=== PATIENT | female | born 1965 | race Caucasian/White ===

== ENCOUNTER → 2019-02-10 08:17 | Outpatient (CLI) | payer BC, SELFPAY ==
[2019-02-10 08:38] LABS: Basophils # 0.1 K/mm3 (0-0.2); Basophils % 1.1 % (0.1-2.0); Eosinophils # 0.1 K/mm3 (0.0-0.4); Eosinophils % 1.6 % (0.1-12.0); Hematocrit 39.8 % (37.0-47.0); Hemoglobin 13.6 g/dL (12.2-16.2); Lymphocytes # 2.3 K/mm3 (0.7-4.5); Mean Corpuscular HGB Conc 34.2 g/dL (31.8-35.4); Mean Corpuscular Hemoglobin 29.9 pg (27.0-31.2); Mean Corpuscular Volume 87.6 fl (81-99); Mean Platelet Volume 8.2 fl (7.4-10.4); Monocytes # 0.3 K/mm3 (0.1-1.0); Monocytes % 6.1 % (1.7-9.3); Neutrophils # 2.6 K/mm3 (1.8-7.8); Neutrophils % 48.3 % (37.0-80.0); Platelet Count 185 K/mm3 (142-424); Red Blood Count 4.55 M/mm3 (4.20-5.40); White Blood Count 5.3 K/mm3 (4.8-10.8)
[2019-02-10 09:38] LABS: Alanine Aminotransferase 44 U/L (12-78); Albumin Level 3.7 gm/dL (3.4-5.0); Albumin/Globulin Ratio 1.3 (1.1-1.8); Alkaline Phosphatase 60 U/L (46-116); Amylase 46 U/L (25-115); Anion Gap 11.4 mEq/L (5-15); Aspartate Amino Transferase 20 U/L (15-37); Bilirubin,Total 0.5 mg/dL (0.2-1.0); Blood Urea Nitrogen 16 mg/dL (7-18); Calcium 8.5 mg/dL (8.5-10.1); Carbon Dioxide 30 mmol/L (21.0-32.0); Chloride 107 mmol/L (98-107); Chol/HDL Ratio 3.1 (1-3.5); Cholesterol 216 mg/dL (140-200); Creatinine,Serum 0.78 mg/dL (0.55-1.02); Estimated Glomerular Filt Rate 77 ml/min (>60); GFR (African American) 93 ML/MIN (>60); Globulin 2.9 gm/dl (1.3-3.2); Glucose 109 mg/dL (74-106); HDL Cholesterol 70 mg/dL (29-89); LDL Cholesterol 135 mg/dL (0-130); Lipase 266 u/L (73-393); Potassium 4.4 mmoL/L (3.5-5.1); Sodium 144 mmol/L (136-145); Total Protein,Serum 6.6 gm/dL (6.4-8.2); Triglycerides 56 mg/dL (30-200); VLDL Cholesterol 11 mg/dL (0-40)
== END ==
PROVIDERS: Visit Provider Family Medicine
DX: R14.0 Abdominal distension (gaseous) (principal); K21.9 Gastro-esophageal reflux disease without esophagitis; K59.01 Slow transit constipation
CPT/HCPCS: 36415; 80053; 80061; 82150; 83690; 84443; 85025

== ENCOUNTER → 2019-10-03 08:18 | Outpatient (CLI) | payer OTHER, SELFPAY ==
[2019-10-03 08:24] LABS: Adenovirus F 40/41, stool Not Detected (NotDetected); Astrovirus Not Detected (NotDetected); Campylobacter Not Detected (NotDetected); Cryptosporidium Not Detected (NotDetected); Cyclospora Cayetanesis Not Detected (NotDetected); Entamoeba histolytica Not Detected (NotDetected); Enteroaggregative E coli Not Detected (NotDetected); Enteropathogenic E coli Not Detected (NotDetected); Enterotoxigenic E coli Not Detected (NotDetected); Giardia lamblia Not Detected (NotDetected); Norovirus Not Detected (NotDetected); Plesimonas Shigalloides, PCR Not Detected (NotDetected); Rotavirus A Not Detected (NotDetected); Salmonella, PCR Not Detected (NotDetected); Sapovirus Not Detected (NotDetected); Shiga-like toxin E coli Not Detected (NotDetected); Shigella Enterovasive E coli Not Detected (NotDetected); Vibrio Cholerae Not Detected (NotDetected); Vibrio, PCR Not Detected (NotDetected); Yersinia Entercolitica, PCR Not Detected (NotDetected)
[2019-10-03 11:47] LABS: Clostridium Difficile A/B, PCR Detected (NotDetected)
== END ==
PROVIDERS: Visit Provider Family Medicine
DX: R19.7 Diarrhea, unspecified (principal); A04.72 Enterocolitis due to Clostridium difficile, not specified as recurrent
CPT/HCPCS: 87507

== ENCOUNTER → 2019-10-09 17:18 | Outpatient (CLI) | payer OTHER, SELFPAY ==
--- NOTE | 2019-10-09 17:39 | XR_ITS ---
PROCEDURE: XR CHEST 2V CLINICAL HISTORY: COUGH, BRONCHITIS PER AUDRA THURSTON COMPARISON: CXR CHEST(2 VIEWS-NOT PORTABLE) from 01/26/2017 FINDINGS: The cardiomediastinal silhouette and pulmonary vascularity are within normal limits. The lungs are clear without infiltrates, suspicious nodules, or pleural effusions. No acute bony abnormalities. IMPRESSION: No acute findings. Dictated by: Alverto Briscoe MD 10/09/2019 18:38 Electronically signed by Alverto Briscoe MD in [place] 10/09/2019 18:38
== END ==
PROVIDERS: PCP Family Medicine; Visit Provider Nurse Practitioner Family
DX: J40 Bronchitis, not specified as acute or chronic (principal)
CPT/HCPCS: 71046

== ENCOUNTER → 2020-02-11 13:14 | Outpatient (CLI) | payer OTHER, SELFPAY ==
--- NOTE | 2020-02-11 13:29 | XR_ITS ---
PROCEDURE: XR KNEE LT 3V CLINICAL INDICATION: LT KNEE PAIN Left lateral knee COMPARISON: [id number] KNEE-3 VIEWS-RT from 02/24/2016 FINDINGS: No fracture or dislocation. No lytic or blastic change. There is normal mineralization. Osteoarthritic changes are present involving medial compartment. Other findings:None. IMPRESSION: Mild osteoarthritis of the left knee Dictated by: Alverto Briscoe MD 02/11/2020 13:48 Electronically signed by Alverto Briscoe MD in [place] 02/11/2020 13:48
== END ==
PROVIDERS: PCP Nurse Practitioner Family; Visit Provider Nurse Practitioner Family
DX: M25.562 Pain in left knee (principal)
CPT/HCPCS: 73562

== ENCOUNTER → 2020-02-19 08:23 | Outpatient (CLI) | payer OTHER, SELFPAY ==
--- NOTE | 2020-02-19 08:30 | MR_ITS ---
PROCEDURE: MR KNEE LT WO CON CLINICAL INDICATION: KNEE PAIN Lateral knee pain with pain radiating down the leg, instability COMPARISON: XR KNEE LT 3V from 02/11/2020 TECHNIQUE: Routine multiplanar multi echo sequences are performed without gadolinium enhancement. FINDINGS: The cruciate ligaments, collateral ligaments, patellar tendon, and quadriceps tendon appear intact. No obvious meniscal tear. The patellar cartilage is preserved. There are osteoarthritic changes of both medial and lateral compartment greater in the medial compartment. Subchondral cystic changes are present involving the for medial femoral condyle anteriorly and centrally with subchondral cyst measures approximately 5 mm with some mild surrounding edema. There is a small complex cystic area just superior to the posterior aspect of the medial femoral condyle measuring 12 mm. There is a small knee joint effusion. IMPRESSION: 1. No evidence of internal derangement 2. Osteoarthritic changes greater along the medial compartment with subchondral cyst of the medial femoral condyle with mild amount of edema 3. Small knee joint effusion with a complex cystic area just superior to the posterior aspect of the lateral femoral condyle Dictated by: Alverto Briscoe MD 02/20/2020 12:05 Electronically signed by Alverto Briscoe MD in [place] 02/20/2020 12:05
== END ==
LOC: RAD 08:23
PROVIDERS: PCP Nurse Practitioner Family; Visit Provider Nurse Practitioner Family
DX: M25.562 Pain in left knee (principal)
CPT/HCPCS: 73721

== ENCOUNTER → 2021-03-27 17:14 | Outpatient (CLI) | payer OTHER, SELFPAY | PROVIDERS: PCP Nurse Practitioner Family; Visit Provider Nurse Practitioner Family | DX: G47.33 Obstructive sleep apnea (adult) (pediatric) (principal); R06.83 Snoring | CPT/HCPCS: G0399 ==

== ENCOUNTER 2021-08-09 19:14 | Emergency (ER) | payer OTHER, SELFPAY ==
[2021-08-09 19:15] VITALS: BP 124/82; PULSE 83; RESP 20; TEMP 37.1; O2SAT 98; BMI 37.9
--- NOTE | 2021-08-09 19:29 | HMH.EDUTC ---
[facility] [place] Disposition Clinical Impression: Bronchitis Sinusitis Qualifiers: Sinusitis location: unspecified location Chronicity: unspecified Qualified Code(s): J32.9 - Chronic sinusitis, unspecified Disposition: Home, Self-Care Condition on Discharge: Good Instructions: Sinusitis, DI for Sinusitis Additional Instructions: ? Start antibiotic today. Be sure to complete entire prescription even if feeling better ? Monitor temp. Tylenol every 4 hours as needed and / or ibuprofen every 6 hours as needed ( As long as your primary care physician has told you that it ok to take both. For fever/aches/pains ER if no less than 101 despite Tylenol or Motrin ? Humidifier/vaporizer or hot steamy shower ? Inhaler every 4-6 hours as needed like we discussed. If unsure how to use it, ask pharmacist to demonstrate how. Should help open airways and improve cough, wheezing, and shortness of breath *Promethazine DM cough syrup will cause drowsiness. Use only at night. No driving, operating machinery or caring for small children after taking it Follow up IMMEDIATELY for new or worsening of symptoms OR no noticeable improvement over the next 48-72 hours. 911 immediately for any life threatening symptoms such as chest pain or difficulty breathing Prescriptions: Promethazine/Dextromethorphan [Promethazine-Dm Syrup] 2.5 - 5 ml PO Q6H PRN #120 ml PRN Reason: Cough Transmission Status: Pending to [facility] Azithromycin [Z-Demarco 250mg Tab] 250 mg PO DIRECTED #6 tab Transmission Status: Pending to [facility] Referrals: Toni Knight MD [Primary Care Provider] - As needed Forms: Work/School Release Time of Disposition: 19:46 Medical Decision Making - Vinicio Inquiry Pt receiving controlled substance: No Vinicio was queried for this patient: No Vital Signs: 08/09/21 19:15 Temperature 98.7 F Temperature Source Oral Pulse Rate [Left Brachial] 83 Respiratory Rate 20 Blood Pressure [Left Arm] 124/82 Blood Pressure Mean [Left Arm] 96 Blood Pressure Source [Left Arm] Automatic Cuff Blood Pressure Position [Left Arm] Sitting 02 Sat by Pulse Oximetry 98 Oxygen Delivery Method Room Air Medical Decision Narrative: Patient states that she has taken azithromycin in the past without reactions or complications [facility] [place] HPI - General Stated complaint: sore throat, cough QUIROZ Time Seen by Provider: 08/09/21 19:29 Mode of Arrival: Ambulatory Source of Information: Patient Limitations: No Limitations Description of Symptoms (Recalled from Triage Doc. by RN): PATIENT C/O COUGH, SINUS DRAINAGE, SORE THROAT, HEADACHE, FATIGUE, AND ACHING TO UPPER BACK HEENT Symptoms (Recalled from RN notes): Yes Resp Symptoms (Recalled from RN notes): Yes Skin Symptoms (Recalled from RN notes): No MS Symptoms (Recalled from RN notes): No Functional Status (Recalled from RN notes): WNL - History of Present Illness Provider Complaint: Patient states that she has been having sinus congestion and cough for several days that has continued to get worse States that she feels like she is having sinus drainage in the back of her throat and feels like she is getting bronchitis States that she has coughed so much it has her upper back sore from coughing so much - Related Data Home Medications Medication Instructions Recorded Confirmed omeprazole 40 mg capsule,delayed 40 mg PO DAILY cap 04/08/21 07/08/21 release Previous Rx's Medication Instructions Recorded Azithromycin [Z-Demarco 250mg Tab] 250 mg PO DIRECTED #6 tab 08/09/21 Promethazine/Dextromethorphan 2.5 - 5 ml PO Q6H PRN #120 ml 08/09/21 [Promethazine-Dm Syrup] Allergies Allergy/AdvReac Type Severity Reaction Status Date / Time cephalexin [From KEFLEX] Allergy Mild Verified 07/08/21 08:07 sulfamethoxazole Allergy Mild Verified 07/08/21 08:07 [From BACTRIM] trimethoprim [From BACTRIM] Allergy Mild Verified 07/08/21 08:07 erythromycin base Allergy Verified 11
[2021-08-09 19:49] VITALS: BP 124/82; PULSE 83; RESP 20; TEMP 37.1; O2SAT 98
== END 2021-08-09 19:52 | disposition home or self-care (01) ==
PROVIDERS: Emergency Provider Nurse Practitioner; PCP Family Medicine
DX: J20.9 Acute bronchitis, unspecified (principal); J32.9 Chronic sinusitis, unspecified; K21.9 Gastro-esophageal reflux disease without esophagitis; E78.5 Hyperlipidemia, unspecified; Z87.891 Personal history of nicotine dependence; Z88.2 Allergy status to sulfonamides
CPT/HCPCS: 99202; G0463

== ENCOUNTER → 2021-08-10 17:17 | Outpatient (CLI) | payer OTHER, SELFPAY ==
--- NOTE | 2021-08-12 12:42 | PC.NURSE ---
notified pt of positive covid result at this time
== END ==
PROVIDERS: PCP Family Medicine; Visit Provider Nurse Practitioner
DX: U07.1 COVID-19 (principal)
CPT/HCPCS: C9803; U0003; U0005

== ENCOUNTER 2021-08-15 07:56 | Outpatient (CLI) | payer OTHER, SELFPAY ==
[2021-08-15] VITALS (7 sets, daily range): BP systolic 112–123; BP diastolic 65–74; PULSE 87–100; RESP 16–18; TEMP 37.6–38.2; O2SAT 91–98; BMI 34.7
--- NOTE | 2021-08-15 10:00 | PC.NURSE ---
PT is asking for some fluids due to her not drinking or eating alot. Pt had a temp of 100.1 before transfusing started. MD aware and ok to give 1 L of NS and 1000 of Tylenol
== END 2021-08-15 10:25 | disposition home or self-care (01) ==
PROVIDERS: PCP Family Medicine; Visit Provider Family Medicine
DX: U07.1 COVID-19 (principal); Z23 Encounter for immunization
CPT/HCPCS: 96365

== ENCOUNTER → 2022-01-19 14:12 | Outpatient (CLI) | payer BC, SELFPAY ==
--- NOTE | 2022-01-19 14:18 | XR_ITS ---
FINAL REPORT CLINICAL HISTORY: rt thumb pain, developed right thumb pain after lifting heavy object. States she has trigger finger now. FINDINGS: 3 views of the right hand were obtained. There is no acute fracture or dislocation. There is mild degenerative change at the radial aspect of the wrist. There is no soft tissue abnormality. IMPRESSION: Mild degenerative change. Reviewed, Interpreted and Dictated by Fredy Franco III, MD Transcribed by Kevin Coelho Authenticated by Fredy Franco III, MD on 01/19/2022 03:56:19 PM [facility]
== END ==
LOC: RAD 14:15
PROVIDERS: PCP Family Medicine; Visit Provider Orthopaedic Surgery
DX: M79.644 Pain in right finger(s) (principal); G89.29 Other chronic pain; M65.311 Trigger thumb, right thumb
CPT/HCPCS: 73130

== ENCOUNTER 2022-04-04 14:21 | Emergency (ER) | payer BC, SELFPAY ==
[2022-04-04 14:40] VITALS: BP 157/90; PULSE 86; RESP 19; TEMP 37.2; O2SAT 98; BMI 38.2
--- NOTE | 2022-04-04 14:55 | HMH.EDUTC ---
[facility] [place] Disposition Clinical Impression: Otitis media Qualifiers: Otitis media type: unspecified Laterality: left Qualified Code(s): H66.92 - Otitis media, unspecified, left ear Disposition: Home, Self-Care Condition on Discharge: Good Instructions: Middle Ear Infection, DI for COVID-19 (Suspected or Confirmed ), Preventing the Spread of Coronavirus Discharge Instructions Additional Instructions: *Monitor Temp, Over the counter Motrin or Tylenol as directed/as needed Tylenol every 4 hours and Motrin every 6 hours (as long as your family doctor has told you that you can take it) for fever or pain. and straight to ER if unable to lower temp less than 101.0 after medication given *Warm salt water gargles may help to soothe the throat *Throat Lozenges *Warm fluids like tea with honey may help to soothe the throat *Sleep elevated *Humidifier/Vaporizer Follow up IMMEDIATELY for new or worsening symptoms or no Noticeable improvement over the next 48-72 hours. 911 for difficulty breathing or swallowing You were tested for today for COVID19 your test result should be back in the next 24-48 hours, you may check your results on the [facility] My Health Portal Make sure to take your Vitamins Vit. C Vit D and Zinc if you can take them Prescriptions: Azithromycin [Z-Demarco 250mg Tab] 250 mg PO DIRECTED #6 tab Transmission Status: Pending to [facility] Ondansetron [Zofran 4mg ODT] 4 mg PO TIDP PRN #9 tab PRN Reason: Nausea Transmission Status: Pending to [facility] Referrals: Toni Knight MD [Primary Care Provider] - As needed Forms: Work/School Release Time of Disposition: 14:55 Medical Decision Making - Vinicio Inquiry Pt receiving controlled substance: No Vinicio was queried for this patient: No Vital Signs: 04/04/22 14:40 Temperature 99.0 F Temperature Source Oral Pulse Rate [Right Brachial] 86 Respiratory Rate 19 Blood Pressure [Right Arm] 157/90 H Blood Pressure Mean [Right Arm] 112 Blood Pressure Source [Right Arm] Automatic Cuff Blood Pressure Position [Right Arm] Sitting 02 Sat by Pulse Oximetry 98 Oxygen Delivery Method Room Air Orders (Tests/Meds): ORDERS Category Date Time Status Covid-19 Nasal PCR ([facility]) Routine Lab 04/04/22 14:36 Received [facility] [place] HPI - General Stated complaint: covid test Time Seen by Provider: 04/04/22 14:55 Mode of Arrival: Ambulatory Source of Information: Patient Limitations: No Limitations Description of Symptoms (Recalled from Triage Doc. by RN): COVID TEST D/T EXPOSURE. C/O HEADACHE, NAUSEA, AND DIARRHEA HEENT Symptoms (Recalled from RN notes): Yes Resp Symptoms (Recalled from RN notes): No Skin Symptoms (Recalled from RN notes): No MS Symptoms (Recalled from RN notes): No Functional Status (Recalled from RN notes): WNL - History of Present Illness Provider Complaint: Patient states that her boyfriend tested positive for COVID earlier today States that she has been having bilateral ear pain, scratchy throat, headache and nausea and fatigue States that she wanted to come in and get tested for COVID - Related Data Home Medications Medication Instructions Recorded Confirmed omeprazole 40 mg capsule,delayed 40 mg PO DAILY cap 04/08/21 01/19/22 release Previous Rx's Medication Instructions Recorded Azithromycin [Z-Demarco 250mg Tab] 250 mg PO DIRECTED #6 tab 04/04/22 Ondansetron [Zofran 4mg ODT] 4 mg PO TIDP PRN #9 tab 04/04/22 Allergies Allergy/AdvReac Type Severity Reaction Status Date / Time cephalexin [From KEFLEX] Allergy Mild Verified 01/19/22 16:47 sulfamethoxazole Allergy Mild Verified 01/19/22 16:47 [From BACTRIM] trimethoprim [From BACTRIM] Allergy Mild Verified 01/19/22 16:47 Sulfa (Sulfonamide Allergy Verified 01/19/22 16:47 Antibiotics) - Worker's Comp Is this a Worker's Comp case?: No [facility] History - Hepatitis A Screen Attestation statement:: This patient has been scre
[2022-04-04 14:56] VITALS: BP 157/90; PULSE 86; RESP 19; TEMP 37.2; O2SAT 98
== END 2022-04-04 15:00 | disposition home or self-care (01) ==
PROVIDERS: Emergency Provider Nurse Practitioner; PCP Family Medicine
DX: H66.92 Otitis media, unspecified, left ear (principal); Z20.822 Contact with and (suspected) exposure to COVID-19
CPT/HCPCS: 99212; C9803; G0463; U0003; U0005

== ENCOUNTER → 2022-04-09 08:12 | Outpatient (CLI) | payer BC, SELFPAY | PROVIDERS: PCP Family Medicine; Visit Provider Family Medicine | DX: U07.1 COVID-19 (principal) | CPT/HCPCS: C9803; U0003; U0005 ==

== ENCOUNTER 2022-08-21 08:27 | Emergency (ER) | payer BC, SELFPAY ==
[2022-08-21 08:40] VITALS: BP 152/88; PULSE 79; RESP 22; TEMP 37.1; O2SAT 97; BMI 37.1
[2022-08-21 08:59] LABS: UTC Strep Screen (Rapid) Negative (Negative)
--- NOTE | 2022-08-21 08:59 | EXP.UTC ---
Discharge Plan Disposition Patient Disposition: Home, Self-Care Condition: Good Prescriptions Prescriptions: New azithromycin [azithromycin] 250 mg tablet 250 mg PO DIRECTED Qty: 6 0RF Rx Instructions: Take two (2) tablets on day #1, then one (1) tablet day #2 thru #5 No Action omeprazole 40 mg capsule,delayed release(DR/EC) 40 mg PO DAILY Referrals Follow up/Referrals: Toni Knight MD [Primary Care Provider] - See instructions Clinical Impressions Clinical Impression: Sinusitis Instructions Patient Instructions: DI for Sinusitis Discharge ED Provider: Sophie ([facility])Dong [facility] [place] HPI General Stated complaint: sore throat, cough, body aches, diarrhea, weak Mode of Arrival: Ambulatory Source of Information: Patient Limitations: No Limitations Time Seen by Provider: 08/21/22 08:59 Description of Symptoms (Recalled from Triage Doc. by RN): PATIENT C/O CHILLS, FEVER, SORE THROAT, COUGH, INTERMITTEN DIARRHEA, BODY ACHES, HEADACHE, AND CONGESTION HEENT Symptoms (Recalled from RN notes): Yes Resp Symptoms (Recalled from RN notes): Yes Skin Symptoms (Recalled from RN notes): No MS Symptoms (Recalled from RN notes): No Functional Status (Recalled from RN notes): WNL History of Present Illness Provider Complaint: 57 yr old female presents for fever, cough, body aches and diarrhea last week and on started having thick yellow drainage and coughing up thick sputum. pt states she had been treating otc but symptoms are not improving Related Data Home Medications Medication Instructions Recorded Confirmed omeprazole 40 mg capsule,delayed 40 mg PO DAILY GERD 04/08/21 08/21/22 release Previous Rx's Medication Instructions Recorded azithromycin 250 mg tablet 250 mg PO DIRECTED #6 tabs 08/21/22 Allergies Allergy/AdvReac Type Severity Reaction Status Date / Time cephalexin [From KEFLEX] Allergy Mild Verified 01/19/22 16:47 sulfamethoxazole Allergy Mild Verified 01/19/22 16:47 [From BACTRIM] trimethoprim [From BACTRIM] Allergy Mild Verified 01/19/22 16:47 Sulfa (Sulfonamide Allergy Verified 01/19/22 16:47 Antibiotics) Worker's Comp Is this a Worker's Comp case?: No [facility] Disclaimer: The information contained in this section may have been updated after the patient was seen, as this information can be updated by other users. Social History , LINUS) Smoking Status: Former smoker alcohol intake: current substance use type: denies use current occupational status: employed and other Travel in the last 8 weeks: None household members: significant other housing: house ROS Obtained: Yes All systems reviewed & no additional complaints except as documented Constitutional Constitutional: Reports system reviewed and no additional complaints, except as documented, Reports body ache, Reports chills, Reports fever(s) and Reports headache(s) Eyes Eyes: Reports system reviewed and no additional complaints, except as documented ENT Ears, Nose, Mouth, and Throat: Reports system reviewed and no additional complaints, except as documented, Reports headache(s), Reports nasal congestion, Reports nasal discharge, Reports post nasal drip, Reports sinus pain, Reports sinus pressure and Reports sore throat Cardiovascular Cardiovascular: Reports system reviewed and no additional complaints, except as documented Respiratory Respiratory: Reports system reviewed and no additional complaints, except as documented, Reports change in phlegm color and Reports cough Gastrointestinal Gastrointestingal: Reports system reviewed and no additional complaints, except as documented and diarrhea Musculoskeletal Musculoskeletal: Reports system reviewed and no additional complaints, except as documented Integumentary/Breasts Skin/Breast: Reports system reviewed and no additional complaints, except as documented Neurologic N
[2022-08-21 09:05] VITALS: BP 152/88; PULSE 79; RESP 22; TEMP 37.1; O2SAT 97
== END 2022-08-21 09:07 | disposition home or self-care (01) ==
PROVIDERS: Emergency Provider Nurse Practitioner Family; PCP Family Medicine
DX: J32.9 Chronic sinusitis, unspecified (principal)
CPT/HCPCS: 87880; 99212; G0463

== ENCOUNTER → 2022-12-12 07:21 | Outpatient (CLI) | payer BC, SELFPAY ==
[2022-12-12 09:26] LABS: Basophils # 0.1 K/mm3 (0-0.2); Basophils % 1.6 % (0.1-2.0); Eosinophils # 0.1 K/mm3 (0.0-0.4); Eosinophils % 1.9 % (0.1-12.0); Hematocrit 47.5 % (37.0-47.0); Hemoglobin 14.7 g/dL (12.2-16.2); Lymphocytes # 1.8 K/mm3 (0.7-4.5); Lymphocytes % 28.9 % (10-50); Mean Corpuscular HGB Conc 30.9 g/dL (31.8-35.4); Mean Corpuscular Hemoglobin 29.6 pg (27.0-31.2); Mean Corpuscular Volume 95.8 fl (81-99); Mean Platelet Volume 8.9 fl (7.4-10.4); Monocytes # 0.6 K/mm3 (0.1-1.0); Monocytes % 8.8 % (1.7-9.3); Neutrophils # 3.7 K/mm3 (1.8-7.8); Neutrophils % 58.7 % (37.0-80.0); Platelet Count 221 K/mm3 (142-424); Red Blood Count 4.96 M/mm3 (4.20-5.40); Red Cell Distribution Width 14.3 % (11.5-17.5); White Blood Count 6.4 K/mm3 (4.8-10.8)
[2022-12-12 09:43] LABS: Chloride 106 mmol/L (98-107)
[2022-12-12 09:44] LABS: Sodium 141 mmol/L (136-145)
[2022-12-12 09:46] LABS: Alanine Aminotransferase 18 U/L (12-78); Albumin Level 4.3 g/dl (3.5-5.0); Albumin/Globulin Ratio 1.7 (1.1-1.8); Alkaline Phosphatase 73 U/L (38-126); Aspartate Amino Transferase 22 U/L (14-36); Bilirubin,Total 0.9 mg/dl (0.2-1.3); Blood Urea Nitrogen 12 mg/dl (7-17); Carbon Dioxide 30 mmol/L (22.0-30.0); Estimated Glomerular Filt Rate 86 ml/min (>60); GFR (African American) 104 ML/MIN (>60); Globulin 2.5 g/dL (1.3-3.2); Total Protein,Serum 6.8 g/dl (6.3-8.2)
[2022-12-12 09:47] LABS: Calcium 8.7 mg/dl (8.4-10.2); Chol/HDL Ratio 2.8 (1-3.5); Cholesterol 227 mg/dl (140-200); Glucose 104 mg/dl (74-100); HDL Cholesterol 81 mg/dl (40-60); Triglycerides 89 mg/dl (30-150); VLDL Cholesterol 18 mg/dL (0-40)
[2022-12-12 09:58] LABS: Direct LDL Cholesterol 115.02 mg/dL (100-129)
== END ==
PROVIDERS: PCP Family Medicine; Visit Provider Family Medicine
DX: K21.9 Gastro-esophageal reflux disease without esophagitis (principal); E78.5 Hyperlipidemia, unspecified
CPT/HCPCS: 36415; 80053; 80061; 85025

== ENCOUNTER 2023-02-06 10:45 | Emergency (ER) | payer BC, SELFPAY ==
[2023-02-06 11:00] VITALS: BP 149/86; PULSE 85; RESP 19; TEMP 36.9; O2SAT 100; BMI 36.8
--- NOTE | 2023-02-06 11:20 | EXP.UTC ---
Discharge Plan Disposition Patient Disposition: Home, Self-Care Condition: Good Prescriptions Prescriptions: New promethazine-DM 6.25-15 mg/5 mL syrup 5 ml PO Q6H PRN (Reason: cough) Qty: 118 0RF azithromycin [Zithromax Z-Demarco] 250 mg tablet See Rx Instructions .ROUTE .COMPLEX 5 Days Qty: 6 0RF Rx Instructions: For 250 mg dose pack: take 500 mg today (day 1), then 250 mg for 4 days (days 2-5) No Action omeprazole 40 mg capsule,delayed release(DR/EC) 40 mg PO DAILY Referrals Follow up/Referrals: Toni Knight MD [Primary Care Provider] - See instructions Activity Restrictions/Add. Instructions Additional Instructions/Restrictions: Start antibiotic today. Be sure to complete entire prescription even if feeling better Monitor temp. Tylenol every 4 hours as needed and / or ibuprofen every 6 hours as needed ( As long as your primary care physician has told you that it ok to take both. For fever/aches/pains ER if no less than 101 despite Tylenol or Motrin Humidifier/vaporizer or hot steamy shower Over the counter Mucinex during the day for your cough and cough suppressant only at night. Be sure to drink lots of water. *Promethazine DM cough syrup will cause drowsiness. Use only at night. No driving, operating machinery or caring for small children after taking it Follow up IMMEDIATELY for new or worsening of symptoms OR no noticeable improvement over the next 48-72 hours. 911 immediately for any life threatening symptoms such as chest pain or difficulty breathing Clinical Impressions Clinical Impression: Bronchitis Sinusitis Qualifiers: Sinusitis location: unspecified location Chronicity: unspecified Qualified Code(s): J32.9 - Chronic sinusitis, unspecified Instructions Patient Instructions: Acute Bronchitis, DI for Sinusitis Discharge ED Provider: Julianna Clark [facility] General Stated complaint: Headache sore throat ear pain cough drainage Mode of Arrival: Ambulatory Source of Information: Patient Limitations: No Limitations Time Seen by Provider: 02/06/23 11:20 Description of Symptoms (Recalled from Triage Doc. by RN): PATIENT C/O HEADACHE, SORE THROAT, COUGH WITH THICK, YELLOW MUCOUS, SINUS DRAINAGE, WEAKNESS AND EAR PAIN X 1 WEEK HEENT Symptoms (Recalled from RN notes): Yes Resp Symptoms (Recalled from RN notes): Yes Skin Symptoms (Recalled from RN notes): No MS Symptoms (Recalled from RN notes): No Functional Status (Recalled from RN notes): WNL History of Present Illness Provider Complaint: Patient states that she hasnt felt well for about a week States that she has been having bilateral ear pain, sinus congestion and pressure, cough with drainage in the back of her throat and at times she will cough up thick yellowish colored mucous States that today she was still having cough and congestion so she came in to get checked Related Data Home Medications Medication Instructions Recorded Confirmed omeprazole 40 mg capsule,delayed 40 mg PO DAILY GERD 04/08/21 02/06/23 release Previous Rx's Medication Instructions Recorded azithromycin 250 mg tablet See Rx Instructions PO .COMPLEX 5 02/06/23 (Zithromax Z-Demarco) days #6 tabs promethazine-DM 6.25 mg-15 mg/5 mL 5 ml PO Q6H PRN cough #118 mL 02/06/23 oral syrup Allergies Allergy/AdvReac Type Severity Reaction Status Date / Time cephalexin [From KEFLEX] Allergy Mild Verified 01/19/22 16:47 sulfamethoxazole Allergy Mild Verified 01/19/22 16:47 [From BACTRIM] trimethoprim [From BACTRIM] Allergy Mild Verified 01/19/22 16:47 Sulfa (Sulfonamide Allergy Verified 01/19/22 16:47 Antibiotics) Worker's Comp Is this a Worker's Comp case?: No [facility] Disclaimer: The information contained in this section may have been updated after the patient was seen, as this information can be updated by other users. 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 (Updated 02/06/23 @ 11:39 by Robyn He
[2023-02-06 11:48] VITALS: BP 149/86; PULSE 85; RESP 19; TEMP 36.9; O2SAT 100
== END 2023-02-06 12:06 | disposition home or self-care (01) ==
PROVIDERS: Emergency Provider Nurse Practitioner; PCP Family Medicine
DX: J20.9 Acute bronchitis, unspecified; J01.90 Acute sinusitis, unspecified; E78.5 Hyperlipidemia, unspecified; Z87.891 Personal history of nicotine dependence
CPT/HCPCS: 96372; 99212; 99214; G0463

== ENCOUNTER → 2023-05-10 09:02 | Outpatient (CLI) | payer BC, SELFPAY ==
--- NOTE | 2023-05-10 09:10 | ECG_ITS ---
APPROVED REPORT Exam: Resting ECG HR:65 bpm ECG Measurements Heart Rate 65 AXES NJ 172 P 26 QRSd 102 QRS -6 QT 429 T 13 QTc 440 Conclusion SINUS RHYTHM WITH OCCASIONAL VENTRICULAR PREMATURE COMPLEXES LOW QRS VOLTAGE IN PRECORDIAL LEADS [QRS DEFLECTION < 1.0 mV IN CHEST LEADS] MINIMAL VOLTAGE CRITERIA FOR LVH, CONSIDER NORMAL VARIANT [MEETS CRITERIA IN ONE OF: R(aVL), S(V1), R(V5), R(V5/V6)+S(V1)] BORDERLINE ECG UNCONFIRMED REPORT Electronically signed by : Toño Wallace MD 05/10/2023 17:15:16
== END ==
LOC: LAB 09:03
PROVIDERS: PCP Family Medicine; Visit Provider Nurse Practitioner Family
DX: I10 Essential (primary) hypertension (principal)
CPT/HCPCS: 93005

== ENCOUNTER 2023-08-13 08:56 | Emergency (ER) | payer BC, SELFPAY ==
[2023-08-13 09:15] VITALS: PULSE 81; RESP 20; TEMP 37.4; O2SAT 96; BMI 37.7
[2023-08-13 09:31] LABS: UTC Strep Screen (Rapid) Negative (Negative)
--- NOTE | 2023-08-13 09:53 | EXP.UTC ---
Discharge Plan Disposition Patient Disposition: Home, Self-Care Condition: Good Prescriptions Prescriptions: New azithromycin [azithromycin] 250 mg tablet 250 mg PO DIRECTED Qty: 6 0RF Rx Instructions: Take two (2) tablets on day #1, then one (1) tablet day #2 thru #5 No Action omeprazole 40 mg capsule,delayed release(DR/EC) 40 mg PO DAILY hydrochlorothiazide 12.5 mg capsule 12.5 mg PO DAILY Referrals Follow up/Referrals: Toni Knight MD [Primary Care Provider] - See instructions Activity Restrictions/Add. Instructions Additional Instructions/Restrictions: Start antibiotic patient to take as ordered for a full length of time even if you feel better. Sinus infections do not get better overnight. It may take 2-3 days to notice much improvement so be sure to use conservative measures as discussed for symptoms. Flonase 1 spray each nostril daily to help with nasal congestion, sinus and ear pressure/information Increase fluids Humidifier/vaporizer as needed Tylenol and ibuprofen as needed for fever or pain. If symptoms do not improve or get worse return or be seen in the ER Follow-up with primary care this week Clinical Impressions Clinical Impression: Sinusitis Qualifiers: Sinusitis location: maxillary Chronicity: acute Recurrence: non-recurrent Qualified Code(s): J01.00 - Acute maxillary sinusitis, unspecified Instructions Patient Instructions: DI for Sinusitis Discharge ED Provider: Dong Barrios [facility] General Stated complaint: sore throat Mode of Arrival: Ambulatory Source of Information: Patient Limitations: No Limitations Time Seen by Provider: 08/13/23 09:55 Description of Symptoms (Recalled from Triage Doc. by RN): sinus pressure, QUIROZ, sore throat, fever, yellow thick mucus, nasal drainage, and weak. HEENT Symptoms (Recalled from RN notes): Yes Resp Symptoms (Recalled from RN notes): No Skin Symptoms (Recalled from RN notes): No MS Symptoms (Recalled from RN notes): No Functional Status (Recalled from RN notes): n/a History of Present Illness Provider Complaint: 58 yr old female presents for sinus pressure, QUIROZ, sore throat, fever, thick yellow mucus, nasal drainage, and weak. Related Data Home Medications Medication Instructions Recorded Confirmed omeprazole 40 mg capsule,delayed 40 mg PO DAILY GERD 04/08/21 08/13/23 release hydrochlorothiazide 12.5 mg capsule 12.5 mg PO DAILY 06/21/23 08/13/23 Previous Rx's Medication Instructions Recorded azithromycin 250 mg tablet 250 mg PO DIRECTED #6 tabs 08/13/23 Allergies Allergy/AdvReac Type Severity Reaction Status Date / Time cephalexin [From KEFLEX] Allergy Mild Verified 08/13/23 09:34 sulfamethoxazole Allergy Mild Verified 08/13/23 09:34 [From BACTRIM] trimethoprim [From BACTRIM] Allergy Mild Verified 08/13/23 09:34 Sulfa (Sulfonamide Allergy Verified 08/13/23 09:34 Antibiotics) Worker's Comp Is this a Worker's Comp case?: No [facility] Disclaimer: The information contained in this section may have been updated after the patient was seen, as this information can be updated by other users. 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
[2023-08-13 10:25] VITALS: BP 0/0; PULSE 81; RESP 18; TEMP 37.4; O2SAT 96
== END 2023-08-13 10:25 | disposition home or self-care (01) ==
PROVIDERS: Emergency Provider Nurse Practitioner Family; PCP Family Medicine
DX: J01.00 Acute maxillary sinusitis, unspecified; R51.9 Headache, unspecified; R07.0 Pain in throat; R09.81 Nasal congestion; R50.9 Fever, unspecified; R53.1 Weakness; E78.5 Hyperlipidemia, unspecified; Z87.891 Personal history of nicotine dependence
CPT/HCPCS: 87880; 99212; 99214; G0463

== ENCOUNTER 2023-11-02 08:00 | Emergency (ER) | payer BC, SELFPAY ==
[2023-11-02 08:31] VITALS: BP 181/87; PULSE 77; RESP 18; TEMP 37.4; O2SAT 95; BMI 37.1
--- NOTE | 2023-11-02 08:37 | EXP.UTC ---
Discharge Plan Disposition Patient Disposition: Home, Self-Care Condition: Good Prescriptions Prescriptions: No Action omeprazole 40 mg capsule,delayed release(DR/EC) 40 mg PO DAILY hydrochlorothiazide 12.5 mg capsule 12.5 mg PO DAILY azithromycin [azithromycin] 250 mg tablet 250 mg PO DIRECTED Qty: 6 0RF Rx Instructions: Take two (2) tablets on day #1, then one (1) tablet day #2 thru #5 Referrals Follow up/Referrals: Toni Knight MD [Primary Care Provider] - See instructions Activity Restrictions/Add. Instructions Additional Instructions/Restrictions: *Monitor Temp, Over the counter Motrin or Tylenol as directed/as needed Tylenol every 4 hours and Motrin every 6 hours (as long as your family doctor has told you that you can take it) for fever or pain. and straight to ER if unable to lower temp less than 101.0 after medication given *Warm salt water gargles may help to soothe the throat *Throat Lozenges? *Warm fluids like tea with honey may help to soothe the throat? *Sleep elevated *Humidifier/Vaporizer Your throat swab was sent for culture. Those results are typically sent to your primary care. Be sure to follow up in 2-3 days with your family doctor/primary care physician if no improvement so they can review those result and treat if necessary. If you don?t have a primary care doctor, I recommend you get one but in the mean time, you will have to return to a walk in clinic Follow up IMMEDIATELY for new or worsening symptoms or no Noticeable improvement over the next 48-72 hours. 911 for difficulty breathing or swallowing Over the counter Coricidin HBP sinus may help with nasal congestion You were tested for today for Upper Respiratory Panel with COVID19 your test result should be back in the next 24hours, you may Check your Results on the [facility] My Health Portal if your COVID test is positive you must Quarantine for 5 days Clinical Impressions Clinical Impression: Viral upper respiratory infection Stand Alone Forms Stand Alone Forms: Work/School Release Instructions Patient Instructions: DI for Viral Upper Respiratory Infection -- Adult, DI for Nasal Congestion Discharge ED Provider: Julianna Clark [facility] HPI General Stated complaint: sore throat, stuffy nose, body aches, fatigu Mode of Arrival: Ambulatory Source of Information: Patient Limitations: No Limitations Time Seen by Provider: 11/02/23 08:37 Description of Symptoms (Recalled from Triage Doc. by RN): Patient reports sore throat, body aches, headache, weakness, and fever since 11/01. HEENT Symptoms (Recalled from RN notes): Yes Resp Symptoms (Recalled from RN notes): No Skin Symptoms (Recalled from RN notes): No MS Symptoms (Recalled from RN notes): No Functional Status (Recalled from RN notes): wnl History of Present Illness Provider Complaint: Patient states that she woke up yesterday with fever, chills, body aches, sore throat, and fatigue States that she has been around flu States that today she woke up and she was feeling worse so she came in to get checked Related Data Home Medications Medication Instructions Recorded Confirmed omeprazole 40 mg capsule,delayed 40 mg PO DAILY GERD 04/08/21 08/13/23 release hydrochlorothiazide 12.5 mg capsule 12.5 mg PO DAILY 06/21/23 08/13/23 Previous Rx's Medication Instructions Recorded azithromycin 250 mg tablet 250 mg PO DIRECTED #6 tabs 08/13/23 Allergies Allergy/AdvReac Type Severity Reaction Status Date / Time cephalexin [From KEFLEX] Allergy Mild Verified 08/13/23 09:34 sulfamethoxazole Allergy Mild Verified 08/13/23 09:34 [From BACTRIM] trimethoprim [From BACTRIM] Allergy Mild Verified 08/13/23 09:34 Sulfa (Sulfonamide Allergy Verified 08/13/23 09:34 Antibiotics) Worker's Comp Is this a Worker's Comp case?: No [facility] Disclaimer: The information contained in this section may have been updated after the patient was seen, as this information can be updated by other users. 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) Smoking Status: Former smoker alcohol intake: current substance use type: denies use current occupational status: employed and other Travel in the last 8 weeks: None household members: significant other housing: house ROS Obtained: Yes All systems reviewed & no additional complaints except as documented and Yes Systems reviewed as appropriate & no additional complaints except as documented Constitutional Constitutional: Reports system reviewed and no additional complaints, except as documented, Reports as per HPI, Reports body ache, Reports chills, Reports fatigue, Reports fever(s), Reports headache(s) and Reports poor appetite ENT Ears, Nose, Mouth, and Throat: Reports system reviewed and no additional complaints, except as documented, Reports as per HPI, Reports headache(s), Reports nasal congestion and Reports sore throat Cardiovascular Cardiovascular: Reports system reviewed and no additional complaints, except as documented and Reports as per HPI Respiratory Respiratory: Reports system reviewed and no additional complaints, except as documented and Reports as per HPI Gastrointestinal Gastrointestingal: Reports system reviewed and no additional complaints, except as documented and as per HPI Musculoskeletal Musculoskeletal: Reports system reviewed and no additional complaints, except as documented and Reports as per HPI Neurologic Neurologic: Reports headache(s) Endocrine Endocrine: Reports fatigue Physical Exam General General appearance: alert and in no apparent distress ENT ENT exam: Present mucous membranes moist Expanded ENT Exam Nose exam: Absent sinus tenderness Throat exam: Present other (Pharyngeal erythema noted with PND) Respiratory Respiratory exam: Present normal lung sounds bilaterally; Absent respiratory distress or wheezes Cardiovascular Cardiovascular exam: Present regular rate, normal rhythm and normal heart sounds Abdominal Exam Abdominal exam: Present soft and normal bowel sounds; Absent distention or tenderness Neurological Exam Neurological exam: Present alert, oriented X3 and normal gait Medical Decision Making Vinicio Inquiry Pt receiving controlled substance: No Vinicio was queried for this patient: No Vital Signs: 11/02/23 08:31 Temperature 99.3 F Temperature Source Oral Pulse Rate [Radial] 77 Respiratory Rate 18 Blood Pressure [Right Arm] 181/87 H Blood Pressure Mean [Right Arm] 118 Blood Pressure Source [Right Arm] Automatic Cuff Blood Pressure Position [Right Arm] Sitting 02 Sat by Pulse Oximetry 95 Oxygen Delivery Method Room Air Lab Data Lab results reviewed: Yes I reviewed the patient's lab results.
[2023-11-02 08:58] LABS: Adenovirus,PCR Not Detected (NotDetected); Coronavirus 19, PCR Not Detected (NotDetected); Coronavirus 229E Not Detected (NotDetected); Coronavirus NL63 Not Detected (NotDetected); Coronavirus OC43 Not Detected (NotDetected); Coronovirus HKU1,PCR Not Detected (NotDetected); Human Metapneumovirus Not Detected (NotDetected); Influenza A, PCR Not Detected (NotDetected); Influenza AH1, 2009 Not Detected (NotDetected); Influenza AH1, PCR Not Detected (NotDetected); Influenza AH3,PCR Not Detected (NotDetected); Influenza B, PCR Not Detected (NotDetected); Parainfluenza 1, PCR Not Detected (NotDetected); Parainfluenza 2, PCR Not Detected (NotDetected); Parainfluenza 3, PCR Not Detected (NotDetected); Parainfluenza 4, PCR Not Detected (NotDetected); Respiratory Syncytial Virus Not Detected (NotDetected); Rhinovirus/Enterovirus Not Detected (NotDetected)
[2023-11-02 09:15] VITALS: BP 181/87; PULSE 77; RESP 18; TEMP 37.4; O2SAT 95
[2023-11-02 11:57] LABS: UTC Influenza A Antigen Negative (Negative); UTC Influenza B Antigen Negative (Negative); UTC Strep Screen (Rapid) Negative (Negative)
== END 2023-11-02 09:16 | disposition home or self-care (01) ==
PROVIDERS: Emergency Provider Nurse Practitioner; PCP Family Medicine
DX: R07.0 Pain in throat (principal); R09.81 Nasal congestion; R50.9 Fever, unspecified; R53.83 Other fatigue; M79.18 Myalgia, other site; B34.9 Viral infection, unspecified; Z20.828 Contact with and (suspected) exposure to other viral communicable diseases
CPT/HCPCS: 87632; 87635; 87804; 87880; 99212; 99214; G0463

== ENCOUNTER 2023-12-06 16:27 | Outpatient (CLI) | payer BC, SELFPAY ==
--- NOTE | 2023-12-06 16:30 | XR_ITS ---
PROCEDURE INFORMATION: Exam: XR Thoracic Spine Exam date and time: 12/06/2023 4:35 PM Age: 58 years old Clinical indication: Pain in thoracic spine; Additional info: Radiating distal t- spine pain TECHNIQUE: Imaging protocol: Radiologic exam of the thoracic spine. Views: 3 views. COMPARISON: CR XR CHEST 2V 10/09/2019 5:34 PM FINDINGS: Bones/joints: Thoracic spondylosis with multilevel disc degeneration. Generalized osteopenia Soft tissues: Unremarkable. Lungs: Subsegmental atelectasis left lung base IMPRESSION: No evidence of acute osseous injury.
== END 2023-12-06 23:59 ==
LOC: RAD 16:27
PROVIDERS: PCP Family Medicine; Visit Provider Nurse Practitioner Family
DX: M54.9 Dorsalgia, unspecified (principal)
CPT/HCPCS: 72072

== ENCOUNTER 2023-12-07 16:29 | Outpatient (CLI) | payer BC, SELFPAY ==
--- NOTE | 2023-12-07 16:37 | XR_ITS ---
FINAL REPORT CLINICAL HISTORY: ATELECTASIS COMPARISON: 10/09/2019 FINDINGS: TWO-VIEW CHEST The heart size is normal. The mediastinum is normal. The lungs are clear. There is no pneumothorax. IMPRESSION: No acute cardiopulmonary process. Reviewed, Interpreted and Dictated by Jose Pires MD Transcribed by lCau Infante Authenticated and [facility]
== END 2023-12-07 23:59 ==
LOC: RAD 16:29
PROVIDERS: PCP Nurse Practitioner Family; Visit Provider Nurse Practitioner Family
DX: J98.11 Atelectasis (principal); Z87.891 Personal history of nicotine dependence
CPT/HCPCS: 71046

== ENCOUNTER 2024-02-12 08:37 | Emergency (ER) | payer BC, SELFPAY ==
[2024-02-12 08:45] VITALS: PULSE 68; RESP 18; TEMP 36.7; O2SAT 97; BMI 38.4
[2024-02-12 09:03] LABS: UTC Strep Screen (Rapid) Negative (Negative)
--- NOTE | 2024-02-12 09:14 | ED_ITS ---
Discharge Plan Disposition Patient Disposition: Home, Self-Care Condition: Good Prescriptions Prescriptions: New azithromycin [Zithromax] 250 mg tablet 250 mg PO UD DOSE PK Qty: 6 0RF Rx Instructions: Take two (2) tablets today, then one (1) tablet days #2 thru #5 benzonatate 100 mg capsule 100 mg PO TIDP PRN (Reason: Cough) Qty: 30 0RF No Action omeprazole 40 mg capsule,delayed release(DR/EC) 40 mg PO DAILY hydrochlorothiazide 12.5 mg capsule 12.5 mg PO DAILY Referrals Follow up/Referrals: Clau Larose APRN [Primary Care Provider] - See instructions Activity Restrictions/Add. Instructions Additional Instructions/Restrictions: Drink plenty of fluids. Take tylenol or ibuprofen for pain or fever. Take the medications as directed. Follow up with your regular doctor. GO TO THE ER FOR ANY WORSENING SYMPTOMS Don't start the oral steroids until tomorrow since you had the steroid shot here today. Clinical Impressions Clinical Impression: Pharyngitis Qualifiers: Pharyngitis/tonsillitis etiology: unspecified etiology Qualified Code(s): J02.9 - Acute pharyngitis, unspecified Stand Alone Forms Stand Alone Forms: Work/School Release Instructions Patient Instructions: Sore Throat, DI for Pharyngitis/Tonsillopharyngitis -- Adult, Dexamethasone Injection Discharge ED Provider: Khanh Alvarez [facility] General Stated complaint: sore throat body ache weakness cough congestion Mode of Arrival: Ambulatory Source of Information: Patient Limitations: No Limitations Time Seen by Provider: 02/12/24 09:14 Description of Symptoms (Recalled from Triage Doc. by RN): Pt's symptoms are sore throat, drainage, fever, body aches, QUIROZ, fatgiue, and ear pain. Her daughter got on 01/28/2024. HEENT Symptoms (Recalled from RN notes): Yes Resp Symptoms (Recalled from RN notes): No Skin Symptoms (Recalled from RN notes): No MS Symptoms (Recalled from RN notes): No Functional Status (Recalled from RN notes): n/a History of Present Illness Provider Complaint: She states that for the past 3 days she has had sore throat, cough and congestion. Related Data Home Medications Medication Instructions Recorded Confirmed omeprazole 40 mg capsule,delayed 40 mg PO DAILY GERD 04/08/21 02/12/24 release hydrochlorothiazide 12.5 mg capsule 12.5 mg PO DAILY 06/21/23 02/12/24 Previous Rx's Medication Instructions Recorded azithromycin 250 mg tablet 250 mg PO UD DOSE PK #6 tabs 02/12/24 (Zithromax) benzonatate 100 mg capsule 100 mg PO TIDP PRN Cough #30 caps 02/12/24 Allergies Allergy/AdvReac Type Severity Reaction Status Date / Time cephalexin [From KEFLEX] Allergy Mild Verified 02/12/24 09:11 sulfamethoxazole Allergy Mild Verified 02/12/24 09:11 [From BACTRIM] trimethoprim [From BACTRIM] Allergy Mild Verified 02/12/24 09:11 Sulfa (Sulfonamide Allergy Verified 02/12/24 09:11 Antibiotics) Worker's Comp Is this a Worker's Comp case?: No [facility] Disclaimer: The information contained in this section may have been updated after the patient was seen, as this information can be updated by other users. 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 , NO EXPERIENCE) Hyperlipidemia MAIDA (obstructive sleep apnea) Surgical History , NO EXPERIENCE) History of cardiac radiofrequency ablation History of tonsillectomy History of tubal ligation Family History , NO EXPERIENCE) Cancer Hypertension Thyroid disorder Social History Smoking Status: Former smoker alcohol intake: current alcohol intake frequency: holidays/special occasions only substance use type: denies use current occupational status: employed and other Travel in the last 8 weeks: None household members: significant other housing: house ROS Obtained: Yes All systems reviewed & no additional complaints except as documented Constitutional Constitutional: Reports chills and Reports fever(s) Eyes Eyes: Denies eye discharge ENT Ears, Nose, Mouth, and Throat: Reports as per HPI Cardiovascular Cardiovascular: Denies chest pain Respiratory Respiratory: Denies chest congestion and Reports cough Gastrointestinal Gastrointestingal: Reports nausea; Denies abdominal pain, constipation, cramping, diarrhea or vomiting Musculoskeletal Musculoskeletal: Denies arthralgias Integumentary/Breasts Skin/Breast: Denies rash Neurologic Neurologic: Denies paresthesias Physical Exam General General appearance: alert and in no apparent distress Head Head exam: atraumatic, normocephalic and normal inspection Eye Eye exam: Present normal appearance, PERRL and EOMI ENT ENT exam: Present mucous membranes moist and normal external ear exam Expanded ENT Exam TM/Canal exam: Bilateral TM: erythema and bulging Nose exam: Absent sinus tenderness Mouth exam: Present normal external inspection; Absent drooling Teeth exam: Present normal inspection Throat exam: Present tonsillar erythema, tonsillomegaly and tonsillar exudate Neck Neck exam: Present normal inspection, full ROM and trachea midline; Absent tenderness, meningismus or lymphadenopathy Chest Chest inspection: Present normal inspection and symmetric chest wall rise; Absent tenderness Respiratory Respiratory exam: Present normal lung sounds bilaterally; Absent respiratory distress, wheezes, stridor or accessory muscle use Cardiovascular Cardiovascular exam: Present regular rate and normal rhythm; Absent systolic murmur or diastolic murmur Abdominal Exam Abdominal exam: Present soft and normal bowel sounds; Absent distention, tenderness, guarding, rebound or rigidity Extremities Exam Extremities exam: Present normal inspection and normal capillary refill; Absent calf tenderness Back Exam Back exam: Present normal inspection and full ROM; Absent tenderness, CVA tenderness (R) or CVA tenderness (L) Neurological Exam Neurological exam: Present alert, oriented X3 and CN II-XII intact Psychiatric Psychiatric exam: Present normal affect and normal mood Skin Skin exam: Present warm, dry, intact and normal color Medical Decision Making Medical Records Medical records reviewed: No I reviewed the patient's medical records. Vinicio Inquiry Pt receiving controlled substance: No Vital Signs: 02/12/24 08:45 Temperature 98.0 F Temperature Source Oral Pulse Rate [Right Radial] 68 Respiratory Rate 18 02 Sat by Pulse Oximetry 97 Oxygen Delivery Method Room Air Lab Data Lab results reviewed: Yes I reviewed the patient's lab results. Lab Results 02/12/24 08:55: Strep Scn Rapid Clinic Negative Orders (Tests/Meds): ORDERS Category Date Time Status Strep Screen Confirmation Stat Micro 02/12/24 08:55 Received
[2024-02-12] MEDS: DEXAMETHASONE 4MG/ML 1ML VIAL 8 MG IM (09:28)
[2024-02-12 09:49] VITALS: BP 154/78; PULSE 68; RESP 18; TEMP 36.7; O2SAT 97
== END 2024-02-12 09:49 | disposition home or self-care (01) ==
PROVIDERS: Emergency Provider Nurse Practitioner Family; PCP Nurse Practitioner Family
DX: J02.9 Acute pharyngitis, unspecified (principal); R05.9 Cough, unspecified; R09.81 Nasal congestion
CPT/HCPCS: 87880; 96372; 99212; 99214; G0463

== ENCOUNTER 2024-06-06 16:29 | Outpatient (CLI) | payer BC, SELFPAY ==
[2024-06-06 17:07] LABS: Basophils # 0.1 K/mm3 (0-0.2); Basophils % 1.3 % (0.1-2.0); Eosinophils # 0.1 K/mm3 (0.0-0.4); Eosinophils % 1.1 % (0.1-12.0); Hemoglobin 15.2 g/dL (12.2-16.2); Lymphocytes # 2.3 K/mm3 (0.7-4.5); Lymphocytes % 26.1 % (10-50); Mean Corpuscular HGB Conc 32.9 g/dL (31.8-35.4); Mean Corpuscular Hemoglobin 31.7 pg (27.0-31.2); Mean Corpuscular Volume 96.2 fl (81-99); Mean Platelet Volume 9.1 fl (7.4-10.4); Monocytes # 0.7 K/mm3 (0.1-1.0); Monocytes % 7.9 % (1.7-9.3); Neutrophils # 5.6 K/mm3 (1.8-7.8); Neutrophils % 63.7 % (37.0-80.0); Platelet Count 208 K/mm3 (142-424); Red Blood Count 4.78 M/mm3 (4.20-5.40); Red Cell Distribution Width 14.1 % (11.5-17.5); White Blood Count 8.7 K/mm3 (4.8-10.8)
[2024-06-06 17:16] LABS: Albumin Level 4.7 g/dl (3.5-5.0); Chloride 109 mmol/L (98-107); Sodium 139 mmol/L (136-145)
[2024-06-06 17:17] LABS: Potassium 3.9 mmoL/L (3.5-5.1)
[2024-06-06 17:19] LABS: Alanine Aminotransferase 21 U/L (12-78); Albumin/Globulin Ratio 1.8 (1.1-1.8); Alkaline Phosphatase 68 U/L (38-126); Amylase 68 U/L (30-110); Anion Gap 8.9 mEq/L (5-15); Aspartate Amino Transferase 24 U/L (14-36); Blood Urea Nitrogen 13 mg/dl (7-17); Calcium 9.9 mg/dl (8.4-10.2); Carbon Dioxide 25 mmol/L (22.0-30.0); Estimated Glomerular Filt Rate 86 ml/min (>60); GFR (African American) 104 ML/MIN (>60); Globulin 2.6 g/dL (1.3-3.2); Glucose 90 mg/dl (74-100); Lipase 254 U/L (23-300); Total Protein,Serum 7.3 g/dl (6.3-8.2)
[2024-06-06 17:20] LABS: Iron 102 ug/dL (37-170)
[2024-06-06 17:29] LABS: Total Iron Binding Capacity 403 ug/dL (265-497)
[2024-06-06 17:36] LABS: Free T4 (Free Thyroxine) 1.01 ng/dl (0.78-2.19)
[2024-06-06 17:50] LABS: Thyroid Stimulating Hormone 1.99 uIU/mL (0.465-4.68)
[2024-06-06 17:55] LABS: Ferritin 41.6 ng/ml (11.1-264)
[2024-06-06 18:55] LABS: Vitamin B12 258 pg/mL (239-931)
[2024-06-08 15:18] LABS: Deamidated Gliadin Abs, IgA 2 units (0-19); Deamidated Gliadin Abs, IgG 2 units (0-19); Tissue Transglutaminase IgA Ab <2 U/mL (0-3); Tissue Transglutaminase IgG Ab 2 U/mL (0-5)
[2024-06-09 09:13] LABS: Endomysial IgA Antibody Negative (Negative)
[2024-06-13 09:53] LABS: Reticulin IgA Antibody Negative titer (Neg:<1:2.5)
[2024-06-27 02:15] LABS: 1,25 Dihydroxy Vitamin D 66 pg/mL (.); 1,25-Dihydroxy, Vitamin D-2 <10 pg/mL (.); 1,25-Dihydroxy, Vitamin D-3 66 pg/mL (.)
== END 2024-06-06 23:59 | disposition home or self-care (01) ==
LOC: LAB 16:29
PROVIDERS: PCP Family Medicine; Visit Provider Internal Medicine Gastroenterology
DX: R19.7 Diarrhea, unspecified (principal); R14.0 Abdominal distension (gaseous); R68.81 Early satiety; K74.69 Other cirrhosis of liver; B19.20 Unspecified viral hepatitis C without hepatic coma
CPT/HCPCS: 36415; 80050; 80053; 82150; 82607; 82652; 82728; 83516; 83540; 83550; 83690; 84439; 84443; 85025; 86255; 86256

== ENCOUNTER 2024-06-11 07:16 | Outpatient (CLI) | payer BC, SELFPAY ==
[2024-06-14 03:09] LABS: Pancreatic Elastase, Fecal >800 (>200)
== END 2024-06-11 23:59 | disposition home or self-care (01) ==
LOC: LAB 07:17
PROVIDERS: PCP Nurse Practitioner Family; Visit Provider Internal Medicine Gastroenterology
DX: R19.7 Diarrhea, unspecified (principal); R14.0 Abdominal distension (gaseous); R68.81 Early satiety
CPT/HCPCS: 82656

== ENCOUNTER 2024-07-04 14:13 | Outpatient (CLI) | payer BC, SELFPAY ==
[2024-07-05 10:07] VITALS: BMI 37.6
== END 2024-07-04 23:59 | disposition home or self-care (01) ==
LOC: DIETICIAN 14:16
PROVIDERS: PCP Family Medicine; Visit Provider Internal Medicine Gastroenterology
DX: E74.31 Sucrase-isomaltase deficiency (principal)
CPT/HCPCS: 97802

== ENCOUNTER 2024-08-20 08:27 | Day surgery (SDC) | payer BC, SELFPAY ==
[2024-08-14 16:53] VITALS: BMI 35.5
[2024-08-20] VITALS (7 sets, daily range): BP systolic 104–158; BP diastolic 71–86; PULSE 67–76; RESP 16–18; TEMP 36.7–36.9; O2SAT 95–99
--- OUTSIDE RECORDS SUMMARY | 2024-08-20 08:48 | XMS_ITS | Encounter Summary ---
Author Organization [facility] Address [address] [place] [address] Care Team Providers Care Combining Machine Operator Name Role Phone Toni Knight MD Primary Care Provider Reason for Referral * Diagnostic Imaging (Routine) - Closed Specialty Diagnoses / Procedures Referred By Contac t Referred To Contact Radiology Diagnoses Visit for screening mammogram Procedures Mammo Screening Digital Tomosynthesis Bilateral With CAD Guanakito Stroud MD [facility] [place] [address] Phone: tel: fax: [facility] [address] [place] [address] Phone: tel: Referral ID Status Reason Start Date Expiration Date Visits Re quested Visits Authorized [id number] Closed 09/28/2021 09/28/2022 1 1 Reason for Visit * Diagnostic Imaging (Routine) - Closed Specialty Diagnoses / Procedures Referred By Contac t Referred To Contact Radiology Diagnoses Visit for screening mammogram Procedures Mammo Screening Digital Tomosynthesis Bilateral With [facility]anakito [facility]um[facility] [address] Phone: tel: fax: [facility] [address] [place] [address] Phone: tel: Referral ID Status Reason Start Date Expiration Date Visits Re quested Visits Authorized [id number] Closed 09/28/2021 09/28/2022 1 1 Encounter Details Date Type Department Care Team (Late st Contact Info) Description 11/24/2021 1:51 PM EDT - 11/24/2021 11:59 PM EDT Hospital Encounter [facility] [address] [place] [address] Guanakito Stroud MD [address] [facility] [address] [place] [address] Visit for screening mammogram Discharge Disposition: Home or Self Care Social History Tobacco Use Types Packs/Day Years Used Date Smoking Tobacco: Former Cigarettes 2014 Smokeless Tobacco: Never Alcohol Use Standard Drinks/Week Comments Yes 0 (1 standard drink = 0.6 oz pur e alcohol) occasional/no abuse [facility] - Occupational Stress Questionnaire Answer Date Recorded Do you feel stress - tense, restless, nervous, or anxious, or unable to sleep at night because your mind is troubled all the time - these days? Not at all 07/08/2020 Exercise Vital Sign Answer Date Recorde d On average, how many days pe r week do you engage in moderate to strenuous exercise (like a brisk walk)? 0 days 07/08/2020 On average, how many minutes do you engage in exercise at this level? 0 min 07/08/2020 Hunger Vital Sign Answer Date Recorded Within the past 12 months, y ou worried that your food would run out before you got the money to buy more. Never true 07/08/20 20 Within the past 12 months, t he food you bought just didn't last and you didn't have money to get more. Never true 07/08/2020 PRAPARE - Transportation Answer Date Re corded In the past 12 months, has l ack of transportation kept you from medical appointments or from getting medications? No 06/13 In the past 12 months, has l ack of transportation kept you from meetings, work, or from getting things needed for daily living? 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 30 capsule 3 0 Probiotic Product (ALIGN PO) Take by mouth. melatonin 1 MG tablet Take by mouth As Needed for Sleep. 05/02/20 23 ondansetron (Zofran) 4 MG tabletIndications:N ausea and vomiting, intractability of vomiting not specified, unspecified vomiting type Take 1 tablet by mouth Every 6 (Six) Hours As Needed (FOR COLONOSCOPY PREP). 6 tablet 0 05/02/20 23 pantoprazole (PROTONIX) 40 MG EC tablet Take 40 mg by mouth Daily. 05/02/20 23 onndto-eytfhrcez-rl gnesium sulfates (Suprep Bowel Prep Kit) 17.5-3.13-1.6 GM/177ML solution oral solutionIndications :Screening for colon cancer Take 1 bottle by mouth Take As Directed. Follow instructions that were mailed to your home. If you didn't receive these call [phone]. 2 bottle 0 05/02/20 23 documented as of this encounter Plan of Treatment Not on file documented as of this encounter Procedures Procedure Name Priority Date/Time Associated Diagnosis Comments MAMMO SCREENING DIGITAL TOMOSYNTHESIS BILATERAL W CAD Routine 11/24/2021 2:08 PM EDT Visit for screening mammogram documented in this encounter Results * Mammo Screening Digital Tomosynthesis Bilateral With CAD (11/24/2021 2:08 PM EDT) Anatomical Region Laterality Modality Breast N/A Mammography 11/30/2021 4:40 PM EDT Impressions 11/30/2021 4:41 PM EDT Benign screening mammogram. ??No findings suspicious for malignancy. ?? ACR BI-RADS CATEGORY: ??2, BENIGN RECOMMENDATION: Yearly mammogram, yearly clinical breast exam, and encourage self breast awareness. CAD was used. The standard false negative rate of mammography is between 10% and 25%. Complex patterns or increased breast density will markedly elevate the false negative rate of mammography. A letter, in lay terminology, with the results of this exam will be mailed to the patient. ?? At our facility, a triangular marker is positioned over a palpable area of concern indicated by the patient. A swinomish marker is placed over a visible skin lesion. A linear marker indicates a scar. If there is a palpable area of concern, biopsy should be considered regardless of imaging findings. This report was finalized on 11/30/2021 4:[address] Ilda Bryant MD. Narrative 11/30/2021 4:41 PM EDT DIGITAL SCREENING MAMMOGRAM WITH TOMOSYNTHESIS HISTORY: Routine screening. IMAGE COMPARISON: ??10/30/2020, 11/20/2019, 11/21/2018. TECHNIQUE: Low dose full field digital breast tomosynthesis imaging was performed with 2D and 3D acquisitions consisting of bilateral CC and MLO views. FINDINGS: There are scattered areas of fibroglandular density. There are fluctuating bilateral oval isodense masses consistent with cysts. There is no mass, worrisome microcalcifications, or architectural distortion to suggest development of malignancy. Guanakito Stroud MD IMG MAMMOGRAPHY ORDERABLES Final Result documented in this encounter Visit Diagnoses Diagnosis Visit for screening mammogram documented in this encounter Care Teams Combining Machine Operator Relationship Specialty Start Date End Date Toni Knight MD formerly [facility] [address] [facility] [address] [place] [address] PCP - General Family Medicine 09/16/16 documented as of this encounter
--- OUTSIDE RECORDS SUMMARY | 2024-08-20 08:48 | XMS_ITS | Encounter Summary ---
Author Organization [facility] Address [address] [place] [address] Care Team Providers Care Shipping Receiving Clerk Name Role Phone Toni Knight MD Primary Care Provider Reason for Visit * Reason Comments Gynecologic Exam Encounter Details Date Type Department Care Team (Late st Contact Info) Description 05/02/2023 8:30 AM EDT Office Visit [facility] OBGYN [address] [place] [address] Estelita Medieros, BULK PLANT OPERATOR [address] [facility] [address] [place] [address] Pap test, as part of routine gynecological examination (Primary Dx); Women's annual routine gynecological examination; Atypical squamous cells of undetermined significance on cytologic smear of cervix (ASC-US); Screening for osteoporosis Social History Tobacco Use Types Packs/Day Years Used Date Smoking Tobacco: Former Cigarettes 2014 Smokeless Tobacco: Never Alcohol Use Standard Drinks/Week Comments Yes 0 (1 standard drink = 0.6 oz pur e alcohol) occasional/no abuse [facility] Occupat ional [facility] - Occupational Stress Questionnaire Answer Date Recorded [...] on file documented as of this encounter Last Filed Vital Signs Vital Sign Reading Time Taken Comments Blood Pressure 120/78 05/02/2023 8:33 AM EDT Pulse - - Temperature - - Respiratory Rate - - Oxygen Saturation - - Inhaled Oxygen Concentration - - Weight 107 kg (235 lb 3.2 oz) 05/02/2023 8:33 AM EDT Height 167.6 cm (5' 5.98 ) 05/02/2023 8:33 AM ED T Body Mass Index 37.98 05/02/2023 8:33 AM EDT documented in this encounter Progress Notes * Estelita Medeiros, BULK PLANT OPERATOR - 05/02/2023 8:30 AM EDT Images from the original note were not included. Gynecologic Annual Exam Note INSURANCE INVESTIGATOR Annual Exam CC - Here for annual exam. HPI Ben Valencia is a 58 y.o. female, , who presents for annual well woman exam as a established patient. She is postmenopausal. Denies vaginal bleeding. Patient reports problems with: none . There were no changes to her medical or surgical history since her last visit.. Partner Status:Marital Status: single. She is is not currently sexually active. STD testing recommendations have been explained to the patient and she does not desire STD testing. Additional VULNERABILITY ASSESSMENT ANALYST History On HRT? No Last Pap : 11/24/2021. Results: negative. HPV: not done. Last Completed Pap Smear Ordered - PAP SMEAR (Every 3 Years) Ordered on 05/02/2023 11/24/2021 SCANNED - PAP SMEAR 07/15/2020 Pap IG, Rfx HPV ASCU History of abnormal Pap smear: yes - years ago per patient 13-14 years ago or longer Family history of uterine, colon, breast, or ovarian cancer: yes - Breast Cancer-mother and cousin Performs monthly Self-Breast Exam: no Last mammogram: 11/24/2021. Done at [facility] . Patient is scheduled to have this done today. Last Completed Mammogram Scheduled - MAMMOGRAM (Every 2 Years) Scheduled for 05/02/2023 11/24/2021 Mammo Screening Digital Tomosynthesis Bilateral With CAD 10/30/2020 Mammo Screening Digital Tomosynthesis Bilateral With CAD 11/20/2019 Mammo Screening Digital Tomosynthesis Bilateral With CAD 11/21/2018 Mammo Screening Digital Tomosynthesis Bilateral With CAD 11/02/2017 Mammo Screening Digital Tomosynthesis Bilateral With CAD Only the first 5 history entries have been loaded, but more history exists. Last colonoscopy: 07/14/2020 Polyps removed and Diverticulosis Last Completed Colonoscopy COLORECTAL CANCER SCREENING (COLONOSCOPY - Every 10 Years) Next due on 07/14/2030 07/14/2020 SCANNED - COLONOSCOPY Last bone density scan (DEXA): None Exercises Regularly: no Feelings of Anxiety or Depression: no Tobacco Usage?: No Current Outpatient Medications: omeprazole (priLOSEC) 40 MG capsule, Take 1 capsule by mouth Daily., Disp: 30 capsule, Rfl: 3 Probiotic Product (ALIGN PO), Take by mouth., Disp: , Rfl: Patient denies the need for medication refills today. OB History 1 Para 1 Term 1 AB Living SAB IAB Ectopic Molar Multiple Live Births Past 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: Diagnosis Date Acid reflux Cervical high risk human papillomavirus (HPV) DNA test positive Pt , has had same partner for 2 years, no prior h/o abn paps Depression Diverticulosis Hypercholesterolemia Irregular menses Papanicolaou smear of cervix with atypical squamous cells of undetermined significance (ASC-US) Pap 07/23/09. j colpo performed 08/20/09..no lesions seen..Nabothian cyst at os biopsied Plantar fasciitis Screening breast examination self denies Past Surgical History: Procedure Laterality Date BREAST CYST ASPIRATION 2003? PT UNSURE WHICH BREAST BREAST CYST ASPIRATION 2009? PT UNSURE WHICH BREAST CARDIAC ABLATION tachycardia COLONOSCOPY ENDOSCOPY EGD TONSILLECTOMY TUBAL ABDOMINAL LIGATION Health Maintenance Topic Date Due COVID-19 Vaccine (1) Never done TDAP/TD VACCINES (1 - Tdap) Never done ZOSTER VACCINE (1 of 2) Never done LUNG CANCER SCREENING Never done HEPATITIS C SCREENING Never done LIPID PANEL Never done ANNUAL PHYSICAL 07/08/2021 Annual Gynecologic Pelvic and Breast Exam 11/25/2022 INFLUENZA VACCINE 06/12/2023 MAMMOGRAM 11/25/2023 PAP SMEAR 11/24/2024 COLORECTAL CANCER SCREENING 07/14/2030 Pneumococcal Vaccine 0-64 Aged Out The additional following portions of the patient's history were reviewed and updated as appropriate: allergies, current medications, past family history, past medical history, past social history, past surgical history, and problem list. Review of Systems Constitutional: Negative. Respiratory: Negative. Cardiovascular: Negative. Gastrointestinal: Negative. Genitourinary: Negative. All other systems reviewed and are negative. I have reviewed and agree with the HPI, ROS, and historical information as entered above. Estelita Conrad, BULK PLANT OPERATOR Objective BP 120/78 Ht 167.6 cm (65.98 ) Wt 107 kg (235 lb 3.2 oz) BMI 37.98 kg/m?? Physical Exam Constitutional: Appearance: Normal appearance. Neck: Thyroid: No thyroid mass or thyromegaly. Pulmonary: Effort: Pulmonary effort is normal. Chest: Chest wall: No mass. Breasts: Right: Normal. No inverted nipple, mass, nipple discharge or skin change. Left: Normal. No inverted nipple, mass, nipple discharge or skin change. Abdominal: General: There is no distension. Palpations: Abdomen is soft. There is no mass. Tenderness: There is no abdominal tenderness. Hernia: No hernia is present. Genitourinary: General: Normal vulva. Labia: Right: No rash. Left: No rash. Vagina: Normal. Cervix: No cervical motion tenderness or lesion. Uterus: Normal. Adnexa: Right adnexa normal and left adnexa normal. Right: No mass or tenderness. Left: No mass or tenderness. Neurological: Mental Status: She is alert. Assessment and Plan Problem List Items Addressed This Visit Genitourinary and Reproductive Atypical squamous cells of undetermined significance on cytologic smear of cervix (ASC-US) Other Visit Diagnoses Pap test, as part of routine gynecological examination - Primary Relevant Orders LIQUID-BASED PAP SMEAR WITH HPV GENOTYPING REGARDLESS OF INTERPRETATION (CHANTELL,COR,MAD) Women's annual routine gynecological examination Screening for osteoporosis Relevant Orders DEXA Bone Density Axial INSURANCE INVESTIGATOR annual well woman exam. Reviewed monthly self breast exams. Instructed to call with lumps, pain, or breast discharge. Yearly mammograms ordered. Ordered mammogram today. Recommended use of Vitamin D and getting adequate calcium in her diet. (1500mg) Osteoporosis screening ordered today. Return in about 1 year (around 05/02/2024) for Annual physical. Estelita Medeiros APRN 05/02/2023 documented in this encounter Plan of Treatment Not on file documented as of this encounter Procedures Procedure Name Priority Date/Time Associated Diagnosis Comments LIQUID-BASED PAP SMEAR WITH HPV GENOTYPING REGARDLESS OF INTERPRETATION, [facility] (CHANTELL,COR,MAD) Routine 05/02/2023 8:43 AM EDT Pap test, as part of routine gynecological examination documented in this encounter Results * LIQUID-BASED PAP SMEAR WITH HPV GENOTYPING REGARDLESS OF INTERPRETATION (CHANTELL,COR,MAD) (05/02/2023 8:43 AM EDT) Reference Lab Report [facility] [address] [facility] ?[place], [place] ??[address] or [phone] Toni Mejia M.D., Leather Currier PATIENT NAME ? LABORATORY NO. [id number] ?? BEN VALENCIA. ?[id number] ? AGE ? SEX ?? SSN ?CLIENT REF # [facility] ([place]) ?58 ?1965 ?F ? [id number] ?[id number] Trina PRICE ?REQUESTING M.D. ? ATTENDING M.D. ? [place] [address] ? ESTELITA MEDEIROS DATE COLLECTED ?DATE RECEIVED ?DATE REPORTED 05/02/2023 ?05/02/2023 ? 05/03/2023 ThinPrep Pap with Cytyc Imaging DIAGNOSIS: Negative for intraepithelial lesion or malignancy Multiple factors can influence accuracy of Pap tests; therefore, screening at regular intervals is necessary for early cancer detection. SPECIMEN ADEQUACY: ??SATISFACTORY FOR EVALUATION Transformation zone is absent or insufficient. SOURCE OF SPECIMEN: ? CERVICAL/ENDOCERVI MARTIN SLIDES: ??1 CLINICAL HISTORY: ??Pap test, as part of routine gynecological examination HPV HR-HPV POOL: Negative The Aptima HPV assay is an in vitro nucleic acid amplification test for the qualitative detection of E6/E7 viral messenger RNA from 14 high risk types of HPV in cervical specimens. The high risk HPV types detected include: 16, 18, 31, 33, 35, 39, 45, 51, 52, 56, 58, 59, 66, 68 PILLOWCASE CUTTER: ? ETB, CT (ASCP) CPT CODES: ??64964, [id number] 05/03/2023 2:55 PM EDT [facility] ThinPrep Vial Cervix uteri structure / Unknown Collection / Unknown 05/02/2023 8:43 AM EDT 05/02/2023 8:43 AM EDT us Estelita Medeiros BULK PLANT OPERATOR PATHOLOGY/CYTOLOGY ORDERA BLES Final Result [facility]
[address] [place] [address], documented in this encounter Visit Diagnoses Diagnosis Pap test, as part of routine gynecological examination- Primary Screening for malignant neoplasm of the cervix Women's annual routine gynecological examination Atypical squamous cells of undetermined significance on cytologic smear of cervix (ASC-US) Screening for osteoporosis Special screening for osteoporosis documented in this encounter Care Teams Shipping Receiving Clerk Relationship Specialty Start Date End Date Toni Knight MD [facility] [address] [facility] [[email or web address] [address] [place] [address] PCP - General Family Medicine 09/16/16 documented as of this encounter
--- OUTSIDE RECORDS SUMMARY | 2024-08-20 08:48 | XMS_ITS | Clinical Summary ---
Author Organization [facility] Address [address] [place] [address] Care Team Providers Care Metal Forger'S Assistant Name Role Phone Toni Knight MD Primary Care Provider Allergies Active Allergy Reactions Criticality Noted Date Comments Sulfamethoxazole-Trimethopri m Other (See Comments) 03/05/2020 Drug fever Cephalexin Other (See Comments) 03/05/2020 Drug fever Medications Probiotic Product (ALIGN PO) Take by mouth. Active omeprazole (priLOSEC) 40 MG capsuleIndicatio ns:Gastroesophag eal reflux disease, unspecified whether esophagitis present Take 1 capsule by mouth Daily. 30 capsule 3 07/21/2020 Active Active Problems Problem Noted Date Diagnosed Date At high risk for breast cancer 06/21/2024 Overview (06/21/2024): Qualifies for yearly breast MRI. Considering. Will call if desired Menopausal symptoms 07/08/2020 Atypical squamous cells of u ndetermined significance on cytologic smear of cervix (ASC-US) 07/08/2020 Encounters Date Type Department Care Team Description 06/21/2024 10:15 AM EDT Office Visit [facility] OBGYN [address] [place] [address] Estelita Medeiros, [facility] Women's annual routine gynecological examination (Primary Dx); At high risk for breast cancer 06/19/2024 8:43 AM EDT - 06/19/2024 11:59 PM EDT Hospital Encounter [facility] [address] [place] [address] Estelita Medeiros APRN Abnormal mammogram Discharge Disposition: Home or Self Care 06/11/2024 11:14 AM EDT - 06/11/2024 11:59 PM EDT Hospital Encounter [facility] [place] [address] [place] [address] Estelita Medeiros, LINUS Breast cancer screening by mammogram Discharge Disposition: Home or Self Care from Last 3 Months Family History 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 Relation Name Comments Breast cancer Cousin 30's...cousin on maternal side Other Father cardiovascular disease Arthritis Mother Breast cancer Mother 60'S Cancer Mother Hyperlipidemia Mother Hypertension Mother Hypothyroidism Mother Osteoporosis Mother Thyroid disease Other aunt Hypothyroidism Sister Thyroid disease Sister Endometrial cancer Neg Hx Ovarian cancer Neg Hx Relation Name Status Comments Cousin Father Mother Other aunt Sister Social History Tobacco Use Types Packs/Day Years Used Date Smoking Tobacco: Former Cigarettes 2014 Smokeless Tobacco: Never Alcohol Use Standard Drinks/Week Comments Yes 0 (1 standard drink = 0.6 oz pur e alcohol) occasional/no abuse [facility] Occupat ional Health - Occupational Stress [...] things needed for daily living? No 07/08/2020 Abuse Screen Answer Date Recorded Unsafe at Home or Work/School Not on file Feels Threatened by Someone? Not on file 05/2023 Does Anyone Keep You from Co ntacting Others or Doint Things Outside the Home? Not on file 06/20/2023 Physical Sign of Abuse Present Not on file 1 Housing Stability Answer Date Recorded Current Living Arrangements Not on file 05/2023 Potentially Unsafe Housing Conditions Not on kwame e 06/20/2023 Family and Community Support Answer Malik e Recorded Help with Day-to-Day Activities Not on file 06/20/2023 Lonely or Isolated Not on file 06/20/2023 Employment Answer Date Recorded Do you want help finding or keeping work or a robert b? Not on file 06/20/2023 Disabilities Answer Date Recorded Concentrating, Remembering, or Making Decisions Difficulty Not on file 06/20/2023 Doing Errands Independently Difficulty Not on fi le 06/20/2023 Education Answer Date Recorded Help with school or training? 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 Not on file Not on file Last Filed Vital Signs Vital Sign Reading Time Taken Comments Blood Pressure 126/82 06/21/2024 9:58 AM EDT Pulse 91 08/03/2021 3:33 PM EST Temperature 36.5 ??C (97.7 ??F) 07/08/2020 4:58 PM ED T Respiratory Rate - - Oxygen Saturation 96% 06/09/2020 3:25 PM EDT Inhaled Oxygen Concentration - - Weight 106 kg (233 lb 12.8 oz) 06/21/2024 9:58 A M EDT Height 167.6 cm (5' 5.98 ) 06/21/2024 9:58 AM ED T Body Mass Index 37.75 06/21/2024 9:58 AM EDT Plan of Treatment Health Maintenance Due Date Last Done Comments BMI FOLLOWUP 1965 COLOGUARD 1965 COLON CANCER SCREENING [address] COLONOGRAPHY 1965 FECAL OCCULT BLOOD TEST 1965 FIT Testing (1 year) 1965 LIPID PANEL 1965 TDAP/TD VACCINES (1 - Tdap) 1984 LUNG CANCER SCREENING 2015 ZOSTER VACCINE (1 of 2) 2015 HEPATITIS C SCREENING 03/05/2020 ANNUAL PHYSICAL 07/08/2021 07/08/2020 INFLUENZA VACCINE 03/12/2024 06/29/2019 COVID-19 Vaccine (1 - season) 2024 Annual Gynecologic Pelvic and Breast Exam 06/22/2025 06/21/2024, 11/24/2021, 11/24/2021 PAP SMEAR 05/02/2026 05/02/2023, 11/10, 07/15/2020 MAMMOGRAM 06/19/2026 06/19/2024, 05/15, 05/02/2023, Additional history exists COLONOSCOPY 07/14/2030 07/14/2020 COLORECTAL CANCER SCREENING 07/14/2030 Pneumococcal Vaccine 0-64 Aged Out No longer eligible based on patient's age to complete this topic Procedures Procedure Name Priority Date/Time Associated Diagnosis Comments MAMMO DIAGNOSTIC DIGITAL TOMOSYNTHESIS LEFT W CAD Routine 06/19/2024 9:25 AM EDT Abnormal mammogram MAMMO SCREENING DIGITAL TOMOSYNTHESIS BILATERAL W CAD Routine 06/11/2024 11:41 AM EDT Breast cancer screening by mammogram AMBRY GENETIC ASSESSMENT Routine 06/01/2024 1:59 PM EDT AMBRY GENETIC ASSESSMENT Routine 05/29/2024 10:47 AM EDT LIQUID-BASED PAP SMEAR WITH HPV GENOTYPING REGARDLESS OF INTERPRETATION, [facility] (CHANTELL,COR,MAD) Routine 05/02/2023 8:43 AM EDT Pap test, as part of routine gynecological examination SCANNED - PAP SMEAR 11/24/2021 SCANNED - COLONOSCOPY 07/14/2020 from Last 3 Months or Most Recently Relevant to Health Maintenance Results * Mammo Diagnostic Digital Tomosynthesis Left With CAD (06/19/2024 9:25 AM EDT) Anatomical Region Laterality Modality Breast Left Mammography 06/19/2024 9:13 AM EDT Impressions 06/19/2024 9:15 AM EDT No abnormality confirmed in the left breast. Stable benign findings. RECOMMENDATION: Recommend the patient continue with annual screening mammography. In addition, the patient is a candidate for high risk screening breast MRI based on the Tyrer-Cuzick risk Assessment Model. ACR BI-RADS CATEGORY: 2, BENIGN CAD was utilized. The standard false-negative rate of mammography is between 10% and 25%. Complex patterns or increased breast density will markedly elevate the false-negative rate of mammography. ?? A letter, in lay terminology, with the results of this exam was given to the patient at the time of the visit. At our facility, a triangular marker is positioned over a palpable area of concern indicated by the patient. A [place] marker is placed over a visible skin lesion. A linear marker indicates a scar. This report was finalized on 06/19/2024 9:[address] Ilda Bryant MD. Narrative 06/19/2024 9:15 AM EDT LEFT DIAGNOSTIC MAMMOGRAM WITH TOMOSYNTHESIS CLINICAL INDICATION: 59-year-old patient recalled from screening study done on 06/11/2024 for further evaluation of the left breast. The patient has a family history breast cancer in her mother. The patient's lifetime risk of developing breast cancer was estimated to be 23.1% based on the Tyrer-Cuzick risk Assessment model. TECHNIQUE: Left CC and MLO focal compression views were performed as well as a left ML view all with tomosynthesis. COMPARISON: 06/11/2024, 05/02/2023, 11/24/2021, 10/30/2020 FINDINGS: The asymmetry noted in the posterior medial breast on the cc view improves with focal compression imaging. The tissue spreads out appearing similar to the prior exams with no underlying mass or distortion seen. The asymmetry seen centrally on the MLO view also improved with additional focal compression imaging as well as ML imaging. There is some mild nodularity in this region but this appears stable compared to the prior exams. There are stable grouped calcifications in the anterior superior breast some of which appear to reflect milk of calcium. Estelita Medeiros APRN IM MAMMOGRAPHY ORDERABLE S Final Result * (ABNORMAL) Mammo Screening Digital Tomosynthesis Bilateral With CAD (06/11/2024 11:41 AM EDT) Anatomical Region Laterality Modality Breast N/A Mammography 06/12/2024 4:45 PM EDT Impressions 06/12/2024 4:50 PM EDT Left breast focal asymmetry ACR BI-RADS CATEGORY: ??0, INCOMPLETE: ?? NEED ADDITIONAL IMAGING EVALUATION RECOMMENDATION: Spot compression views CAD was utilized. The standard false-negative rate of mammography is between 10% and 25%. Complex patterns or increased breast density will markedly elevate the false-negative rate of mammography. ?? A letter, in lay terminology, with the results of this exam will be mailed to the patient. ?? The patient will be contacted by our office to schedule for the additional imaging evaluation. ??Please accept this as sufficient order for the additional imaging evaluation. Physicians Order Diagnostic Mammogram with Breast Ultrasound if needed Diagnosis: Abnormal Mammogram This report was finalized on 06/12/2024 4:50 PM by Lela Morales MD. Narrative 06/12/2024 4:50 PM EDT BILATERAL DIGITAL SCREENING MAMMOGRAM WITH TOMOSYNTHESIS CLINICAL INDICATION: Routine screening TECHNIQUE: Low dose full field digital breast tomosynthesis imaging was performed with 2D and 3D acquisitions consisting of bilateral CC and MLO views. COMPARISON: Priors extending to 2018 FINDINGS: There are scattered fibroglandular densities. RIGHT BREAST: There are no worrisome findings on the right. LEFT BREAST: ??There is a focal asymmetry medial middle depth left breast. Estelita Medeiros APRN [facility] MAMMO[facility] ORDERABLE S Final Result * AMBRY GENETIC RISK ASSESSMENT QUESTIONNAIRE - , (06/01/2024 1:59 PM EDT) Only the most recent of2 resultswithin the time period is included. Pathologist [facility] Yaakov 18.4 [facility] GENETICS NCCN NCCN not met [facility] Comment:High Risk Cancer Ris k Assessment 06/01/2024 1:59 PM EDT us Estelita Stephens [facility] [facility] GENETIC TESTING Final Res ult [facility]
[address] [facility] [place] [address], * LIQUID-BASED PAP SMEAR WITH HPV GENOTYPING REGARDLESS OF INTERPRETATION (CHANTELL,COR,MAD) (05/02/2023 8:43 AM EDT) [facility] Reference Lab Report [facility] [address] ?[place], [place] ??[address] or [phone] Toni Mejia M.D., Health Coach PATIENT NAME ? LABORATORY NO. 651 ?? BEN VALENCIA. ?[id number] ? AGE ? SEX ?? SSN ?CLIENT REF # [facility] ([place]) ?58 ?1965 ?F ? [id number] ?[id number] Trina PRICE ?REQUESTING M.D. ? ATTENDING M.D. ? COPY TO. [place] [address] ? ESTELITA MEDEIROS DATE COLLECTED ?DATE RECEIVED [...] 51, 52, 56, 58, 59, 66, 68 PRODUCTION CONTROL EXPEDITER: ? ETB, CT (ASCP) CPT CODES: ??[id number], [id number] 05/03/2023 2:55 PM EDT [facility] ThinPrep Vial Cervix uteri structure / Unknown Collection / Unknown 05/02/2023 8:43 AM EDT 05/02/2023 8:43 AM EDT us Estelita Medeiros [facility] PATHOLOGY/CYTOLOGY ORDERA BLES Final Result [facility]
[address] [place] [address], * SCANNED - PAP SMEAR (11/24/2021) Guanakito Strodu MD CHART REVIEW TABS Final Result * SCANNED - COLONOSCOPY (07/14/2020) Toni Knight MD CHART REVIEW TABS F inal Result from Last 3 Months or Most Recently Relevant to Health Maintenance Insurance [place] [id number] [facility] PPO Care Teams Metal Forger'S Assistant Relationship Specialty Start Date End Date Toni Knight MD [address] [facility] [address] [place] [address] PCP - General Family Medicine 09/16/16
--- OUTSIDE RECORDS SUMMARY | 2024-08-20 08:48 | XMS_ITS | Encounter Summary ---
Author Organization [facility] Address [address] [place] [address] Care Team Providers Care Electronic Publishing Specialist Name Role Phone Toni Knight MD Primary Care Provider Reason for Referral * Diagnostic Imaging (Routine) - Closed Specialty Diagnoses / Procedures Referred By Contac t Referred To Contact Radiology Diagnoses Breast cancer screening by mammogram Procedures Mammo Screening Digital Tomosynthesis Bilateral With CAD Estelita Medeiros APRN [address] [place] [address] Phone: tel: fax: [facility] [address] [place] [address] Phone: tel: Referral ID Status Reason Start Date Expiration Date Visits Re quested Visits Authorized [id number] Closed 02/13/2024 02/12/2025 1 1 Reason for Visit * Diagnostic Imaging (Routine) - Closed Specialty Diagnoses / Procedures Referred By Contac t Referred To Contact Radiology Diagnoses Breast cancer screening by mammogram Procedures Mammo Screening Digital Tomosynthesis Bilateral With CAD Estelita Medeiros APRN [address] [address] Phone: tel: fax: [facility] [address] [place] [address] Phone: tel: Referral ID Status Reason Start Date Expiration Date Visits Re quested Visits Authorized [id number] Closed 02/13/2024 02/12/2025 1 1 Encounter Details Date Type Department Care Team (Willie jacome Contact Info) Description 06/11/2024 11:14 AM EDT - 06/11/2024 11:59 PM EDT Hospital Encounter [facility] [address] [place] [address] Estelita Medeiros, HOT TAR ROOFER [address] [facility] [address] [place] [address] Breast cancer screening by mammogram Discharge Disposition: Home or Self Care Social History Tobacco Use Types Packs/Day Years Used Date Smoking Tobacco: Former Cigarettes 1 2014 Smokeless Tobacco: Never Alcohol Use Standard Drinks/Week Comments Yes 0 (1 standard drink = 0.6 oz pur e alcohol) occasional/no abuse [facility] of Occupat ional Health - Occupational Stress [...] Time of Discharge omeprazole (priLOSEC) 40 MG capsuleIndications :Gastroesophageal reflux disease, unspecified whether esophagitis present Take 1 capsule by mouth Daily. 30 capsule 3 07/21/2020 Probiotic Product (ALIGN PO) Take by mouth. documented as of this encounter Plan of Treatment Not on file documented as of this encounter Procedures Procedure Name Priority Date/Time Associated Diagnosis Comments MAMMO SCREENING DIGITAL TOMOSYNTHESIS BILATERAL W CAD Routine 06/11/2024 11:41 AM EDT Breast cancer screening by mammogram documented in this encounter Results * (ABNORMAL) Mammo Screening Digital Tomosynthesis Bilateral [...] focal asymmetry medial middle depth left breast. us Estelita Medeiros APRN IMG MAMMOGRAPHY ORDERABLE S Final Result documented in this encounter Visit Diagnoses Diagnosis Breast cancer screening by mammogram documented in this encounter Care Teams Electronic Publishing Specialist Relationship Specialty Start Date End Date Toni Knight MD [address] [place] [address] PCP - General Family Medicine 09/16/16 documented as of this encounter
--- OUTSIDE RECORDS SUMMARY | 2024-08-20 08:48 | XMS_ITS | Encounter Summary ---
Author Organization [facility] Address [address] [place] [address] Care Team Providers Care Regional Merchandising Manager Name Role Phone Toni Knight MD Primary Care Provider Reason for Referral * Diagnostic Imaging (Routine) - Closed Specialty Diagnoses / Procedures Referred By Og castorena Referred To Contact Radiology Diagnoses Abnormal mammogram Procedures Mammo Diagnostic Digital Tomosynthesis Left With CAD Estelita Medeiros APRN [address] [place] [address] Phone: tel: fax: Referral ID Status Reason Start Date Expiration Date Visits Re quested Visits Authorized [id number] Closed 06/14/2024 06/14/2025 1 1 Reason for Visit * Diagnostic Imaging (Routine) - Closed Specialty Diagnoses / Procedures Referred By Og castorena Referred To Contact Radiology Diagnoses Abnormal mammogram Procedures Mammo Diagnostic Digital Tomosynthesis Left With CAD Estelita Medeiros APRN [address] [place] [address] Phone: tel: fax: Referral ID Status Reason Start Date Expiration Date Visits Re quested Visits Authorized [id number] Closed 06/14/2024 06/14/2025 1 1 Encounter Details Date Type Department Care Team (Late st Contact Info) Description 06/19/2024 8:43 AM EDT - 06/19/2024 11:59 PM EDT Hospital Encounter [facility] [address] [facility] [address] [place] [address] Estelita Medeiros, MEDIA MARKETING COORDINATOR [address] [place] [address] Abnormal mammogram Discharge Disposition: Home or Self Care Social History Tobacco Use Types Packs/Day Years Used Date Smoking Tobacco: Former Cigarettes 2014 Smokeless Tobacco: Never Alcohol Use Standard Drinks/Week Comments Yes 0 (1 standard drink = 0.6 oz pur e alcohol) occasional/no abuse [facility] of Occupat ional Health - Occupational Stress [...] Routine 06/19/2024 9:25 AM EDT Abnormal mammogram documented in this encounter Results * Mammo Diagnostic Digital Tomosynthesis Left [...] of concern indicated by the patient. A [place] marker is placed over a visible skin [...] which appear to reflect milk of calcium. us Estelita Medeiros MEDIA MARKETING COORDINATOR IMG MAMMOGRAPHY ORDERABLE S Final Result documented in this encounter Visit Diagnoses Diagnosis Abnormal mammogram Abnormal mammogram, unspecified documented in this encounter Care Teams Regional Merchandising Manager Relationship Specialty Start Date End Date Toni Knight MD [address] [facility] [address] [place] [address] PCP - General Family Medicine 09/16/16 documented as of this encounter
--- OUTSIDE RECORDS SUMMARY | 2024-08-20 08:48 | XMS_ITS | Encounter Summary ---
Author Organization [facility] Address [address] [place] [address] Care Team Providers Care Sustainable Agriculture Specialist Name Role Phone Toni Knight MD Primary Care Provider Reason for Visit * Diagnostic Imaging (Routine) - Closed Specialty Diagnoses / Procedures Referred By Og castorena Referred To Contact Radiology Diagnoses Visit for screening mammogram Procedures Mammo Screening Digital Tomosynthesis Bilateral With CAD Mammo Screening Digital Tomosynthesis Bilateral With CAD Estelita Medeiros, AUTOMOTIVE WARRANTY ADMINISTRATOR [address] [facility] [address] [place] [address] Phone: tel: fax: [facility] [address] [place] [address] Phone: tel: Referral ID Status Reason Start Date Expiration Date Visits Re quested Visits Authorized [id number] Closed 11/08/2022 11/08/2023 1 1 Encounter Details Date Type Department Care Team (Late st Contact Info) Description 05/02/2023 10:46 AM EDT - 05/02/2023 11:59 PM EDT Hospital Encounter [facility] [address] [place] [address] Estelita Medeiros, AUTOMOTIVE WARRANTY ADMINISTRATOR [address] [facility] [address] [place] [address] Visit for screening mammogram Discharge Disposition: Home or Self Care Social History Tobacco Use Types Packs/Day Years Used Date Smoking Tobacco: Former Cigarettes 2014 Smokeless Tobacco: Never Alcohol Use Standard Drinks/Week Comments Yes 0 (1 standard drink = 0.6 oz pur e alcohol) occasional/no abuse [facility] of Occupat ional Health - Occupational Stress [...] SCREENING DIGITAL TOMOSYNTHESIS BILATERAL W CAD Routine 05/02/2023 11:21 AM EDT Visit for screening mammogram documented in this encounter Results * Mammo Screening Digital Tomosynthesis Bilateral With CAD (05/02/2023 11:21 AM EDT) Anatomical Region Laterality Modality Breast N/A Mammography 05/06/2023 2:39 PM EDT Impressions 05/06/2023 2:39 PM EDT Benign screening mammogram. ??No findings [...] of concern indicated by the patient. A [place] marker is placed over a visible skin lesion. A linear marker indicates a scar. If there is a palpable area of concern, biopsy should be considered regardless of imaging findings. This report was finalized on 05/06/2023 2:[address] Ilda Bryant MD. Narrative 05/06/2023 2:39 PM EDT DIGITAL SCREENING MAMMOGRAM WITH TOMOSYNTHESIS HISTORY: Routine screening. IMAGE COMPARISON: 11/24/2021, 10/30/2020, 11/20/2019. TECHNIQUE: Low dose full field digital breast tomosynthesis imaging was performed with 2D and 3D acquisitions consisting of bilateral CC and MLO views. FINDINGS: There are scattered areas of fibroglandular density. There are fluctuating areas of nodularity consistent with fibrocystic changes. There is no mass, worrisome microcalcifications, or architectural distortion to suggest development of malignancy. us Estelita Medeiros APRN IMG MAMMOGRAPHY ORDERABLE S Final Result documented in this encounter Visit Diagnoses Diagnosis Visit for screening mammogram documented in this encounter Care Teams Sustainable Agriculture Specialist Relationship Specialty Start Date End Date Toni Knight MD [facility] [address] [place] [address] PCP - General Family Medicine 09/16/16 documented as of this encounter
--- OUTSIDE RECORDS SUMMARY | 2024-08-20 08:48 | XMS_ITS | Encounter Summary ---
Author Organization [facility] Address [address] [place] [address] Care Team Providers Care Media Relations Coordinator Name Role Phone Toni Knight MD Primary Care Provider Reason for Visit * Reason Onset Date Comments DR. CARRILLO- ENRIQUE REQUEST 06/16/2022 Encounter Details Date Type Department Care Team (Late st Contact Info) Description 06/16/[address] [facility] [address] [place] [address] Maulik Carrillo MD [address] [place] [address] DR. CARRILLO- ENRIQUE REQUEST Social History Tobacco Use Types Packs/Day Years Used Date Smoking Tobacco: Former Cigarettes 2014 Smokeless Tobacco: Never Alcohol Use Standard Drinks/Week Comments Yes 0 (1 standard drink = 0.6 oz pur e alcohol) occasional/no abuse [facility] of Occupat ional Health - Occupational Stress [...] on file documented as of this encounter Miscellaneous Notes * Telephone Encounter - Sage Alejandro RegSched Rep - 06/16/2022 3:20 PM EDT Called to schedule F/U with Dr Carrillo. Possible cortisone Inj. Bilat knees * Telephone Encounter - Katiuska Valladares RegSched Rep - 06/16/2022 2:45 PM EDT Caller: PATIENT Relationship to patient: SELF Best call back number: [phone] Chief complaint: BILATERAL KNEE PAIN Type of visit: INJECTION Requested date: NEXT AVAILABLE APPT ON A , WED, OR TH IN THE LATE AFTERNOON Additional notes: PATIENT WAS CALLING TO SCHEDULE AN INJECTION WITH DR. CARRILLO FOR BOTH KNEES. PATIENT'S LAST INJECTION WAS ON 03.24.22. PATIENT IS REQUESTING TO SCHEDULE THIS INJECTION ON A , TUES, OR IN THE LATE AFTERNOON. THANK YOU! documented in this encounter Plan of Treatment Not on file documented as of this encounter Visit Diagnoses Not on filedocumented in this encounter Care Teams Media Relations Coordinator Relationship Specialty Start Date End Date Toni Knight MD [address] [facility] [address] [facility] [address] [place] [address] PCP - General Family Medicine 09/16/16 documented as of this encounter
--- OUTSIDE RECORDS SUMMARY | 2024-08-20 08:48 | XMS_ITS | Encounter Summary ---
Author Organization [facility] Address [address] [place] [address] Care Team Providers Care Claim Processing Specialist Name Role Phone Toni Knight MD Primary Care Provider Reason for Visit * Reason Comments Follow-up 4 months- primary os teoarthritis of bilateral knees Encounter Details Date Type Department Care Team (Late st Contact Info) Description 03/24/2022 2:50 PM EDT Office Visit [facility] [address] [place] [address] Maulik Carrillo MD [address] [place] [address] Primary osteoarthritis of right knee (Primary Dx); Primary osteoarthritis of left knee Social History Tobacco Use Types Packs/Day Years Used Date Smoking Tobacco: Former Cigarettes 2014 Smokeless Tobacco: Never Alcohol Use Standard Drinks/Week Comments Yes 0 (1 standard drink = 0.6 oz pur e alcohol) occasional/no abuse [facility] [place] of Occupat ional Health - Occupational Stress [...] Sign Reading Time Taken Comments Blood Pressure 126/87 03/24/2022 2:33 PM EDT Pulse - - Temperature - - Respiratory Rate - - Oxygen Saturation - - Inhaled Oxygen Concentration - - Weight 108 kg (237 lb) 03/24/2022 2:33 PM EDT Height 167.6 cm (5' 5.98 ) 03/24/2022 2:33 PM ED T Body Mass Index 38.27 03/24/2022 2:33 PM EDT documented in this encounter Progress Notes * Maulik Carrillo MD - 03/24/2022 2:50 PM EDT Images from the original note were not included. [facility] [place] [facility] Note Subjective Chief Complaint Patient presents with ??? Follow-up 4 months- primary osteoarthritis of bilateral knees HPI It has been 4 month(s) since Ms. Peralta's last visit. She returns to clinic today for follow-up ofbilateral knee arthritis. The issue has been ongoing for 13 month(s). She rates her pain a 6/10 on the pain scale. Previous/current treatments: NSAIDS. Current symptoms: same as prior visit. The painis worse with walking, climbing stairs and sleeping; resting and sitting improve the pain. Overall,she is doing better. She would like injections today. I have reviewed the following portions of the patient's history and agree with: History of Present Illness and Review of Systems Patient Active Problem List Diagnosis ??? Menopausal symptoms ??? Atypical squamous cells of undetermined significance on cytologic smear of cervix (ASC-US) Past 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: Diagnosis Date ??? Acid reflux ??? Cervical high risk human papillomavirus (HPV) DNA test positive Pt , has had same partner for 2 years, no prior h/o abn paps ??? Depression ??? Diverticulosis ??? Hypercholesterolemia ??? Irregular menses ??? Papanicolaou smear of cervix with atypical squamous cells of undetermined significance (ASC-US) Pap 07/23/09. j colpo performed 08/20/09..no lesions seen..Nabothian cyst at os biopsied ??? Plantar fasciitis ??? Screening breast examination self denies Past Surgical History: Procedure Laterality Date ??? BREAST CYST ASPIRATION 2003? PT UNSURE WHICH BREAST ??? BREAST CYST ASPIRATION 2009? PT UNSURE WHICH BREAST ??? CARDIAC ABLATION tachycardia ??? COLONOSCOPY ??? ENDOSCOPY EGD ??? TONSILLECTOMY ??? TUBAL ABDOMINAL LIGATION Family History Problem Relation Age of Onset ??? Breast cancer Mother 60'S ??? Cancer Mother ??? Hypertension Mother ??? Hypothyroidism Mother ??? Arthritis Mother ??? Hyperlipidemia Mother ??? Osteoporosis Mother ??? Breast cancer Cousin 30's...cousin on maternal side ??? Other Father cardiovascular disease ??? Hypothyroidism Sister ??? Thyroid disease Sister ??? Thyroid disease Other ??? Ovarian cancer Neg Hx ??? Endometrial cancer Neg Hx Social History Socioeconomic History ??? Marital status: Single ??? Number of children: 1 Tobacco Use ??? Smoking status: Former Smoker Packs/day: 1.00 Years: 20.00 Pack years: 20.00 Types: Cigarettes Quit date: 2014 Years since quittin.5 ??? Smokeless tobacco: Never Used Vaping Use ??? Vaping Use: Never used Substance and Sexual Activity ??? Alcohol use: Yes Comment: occasional/no abuse ??? Drug use: Never ??? Sexual activity: Not Currently control/protection: Post-menopausal Comment: Per Rafael, yes Current Outpatient Medications on File Prior to Visit Medication Sig Dispense Refill ??? melatonin 1 MG tablet Take by mouth As Needed for Sleep. ??? omeprazole (priLOSEC) 40 MG capsule Take 1 capsule by mouth Daily. 30 capsule 3 ??? ondansetron (Zofran) 4 MG tablet Take 1 tablet by mouth Every 6 (Six) Hours As Needed (FOR COLONOSCOPY PREP). 6 tablet 0 ??? pantoprazole (PROTONIX) 40 MG EC tablet Take 40 mg by mouth Daily. ??? Probiotic Product (ALIGN PO) Take by mouth. ??? efzybu-eeybrhifn-mudxrdxnn sulfates (Suprep Bowel Prep Kit) 17.5-3.13-1.6 GM/177ML solution oral solution Take 1 bottle by mouth Take As Directed. Follow instructions that were mailed to your home. If you didn't receive these call [phone]. 2 bottle 0 No current facility-administered medications on file prior to visit. Allergies Allergen Reactions ??? Bactrim [Sulfamethoxazole-Trimethoprim] Other (See Comments) Drug fever ??? Keflex [Cephalexin] Other (See Comments) Drug fever Review of Systems Constitutional: Negative for activity change, appetite change, chills, diaphoresis, fatigue, fever and unexpected weight change. HENT: Negative for congestion, dental problem, drooling, ear discharge, ear pain, facial swelling, hearing loss, mouth sores, nosebleeds, postnasal drip, rhinorrhea, sinus pressure, sneezing, sore throat, tinnitus, trouble swallowing and voice change. Eyes: Negative for photophobia, pain, discharge, redness, itching and visual disturbance. Respiratory: Negative for apnea, cough, choking, chest tightness, shortness of breath, wheezing andstridor. Cardiovascular: Negative for chest pain, palpitations and leg swelling. Gastrointestinal: Negative for abdominal distention, abdominal pain, anal bleeding, blood in stool,constipation, diarrhea, nausea, rectal pain and vomiting. Endocrine: Negative for cold intolerance, heat intolerance, polydipsia, polyphagia and polyuria. Genitourinary: Negative for decreased urine volume, difficulty urinating, dysuria, enuresis, flank pain, frequency, genital sores, hematuria and urgency. Musculoskeletal: Positive for arthralgias. Negative for back pain, gait problem, joint swelling, myalgias, neck pain and neck stiffness. Skin: Negative for color change, pallor, rash and wound. Allergic/Immunologic: Negative for environmental allergies, food allergies and immunocompromised state. Neurological: Negative for dizziness, tremors, seizures, syncope, facial asymmetry, speech difficulty, weakness, light-headedness, numbness and headaches. Hematological: Negative for adenopathy. Does not bruise/bleed easily. Psychiatric/Behavioral: Negative for agitation, behavioral problems, confusion, decreased concentration, dysphoric mood, hallucinations, self-injury, sleep disturbance and suicidal ideas. The patientis not nervous/anxious and is not hyperactive. Objective Physical Exam BP 126/87 Ht 167.6 cm (65.98 ) Wt 108 kg (237 lb) BMI 38.27 kg/m?? Body mass index is 38.27 kg/m??. General: Mental Status: Alert Appearance: Cooperative, in no acute distress Build and Nutrition: Obese by BMI female Orientation: Alert and oriented to person, place and time Posture: Normal Gait: Nonantalgic Integument: ?Right knee: no skin lesions, no rash, no ecchymosis ?Left knee: no skin lesions, no rash, no ecchymosis ?? Lower Extremities: ?Right Knee: ?Tenderness:?Medial joint line tenderness ?Effusion: ?Trace ?Swelling: ?None ?Crepitus: ?Positive ?Atrophy: ?None ?Range of motion: ?Extension:?0?Flexion:?120?? Instability: ?No varus laxity, no valgus laxity, negative anterior drawer Deformities:?Mild varus ?Left Knee: ?Tenderness: ?Medial joint line tenderness ?Effusion: ?None ?Swelling: ?None ?Crepitus:?Pos itive ?Atrophy: ?None ?Range of motion: ?Extension:?0?Flexion:?120?? Instability: ?No varus laxity, no valgus laxity, negative anterior drawer Deformities:?Mild varus Imaging/Studies Imaging Results (Last 24 Hours) No results found for the last 24 hours. No previous imaging. Assessment and Plan Diagnoses and all orders for this visit: 1. Primary osteoarthritis of right knee (Primary) - - Large Joint Arthrocentesis: bilateral knee 2. Primary osteoarthritis of left knee - - Large Joint Arthrocentesis: bilateral knee 1. Primary osteoarthritis of right knee 2. Primary osteoarthritis of left knee I reviewed my findings with the patient. She would like injections for her knees today, and these were provided. I will see her back in 4 months, but sooner for any problems. Procedure Note: The potential benefits of performing a therapeutic bilateral knee joint injections, as well as potential risks (including, but not limited to infection, swelling, pain, bleeding, bruising, nerve/blood vessel damage, skin color changes, transient elevation in blood glucose levels, and fat atrophy) were discussed with the patient. After informed consent, timeout procedure was performed, and the skin on the right and left knees was prepped with chlorhexidine soap and alcohol, after which ethyl chloride was applied to the skin at the injection site. Via the anterolateral approach, 1ml of Kenalog 4 0mg/ml mixed with 4ml 0.5% ropivacaine plain was injected into the knee joints. The patient tolerated the procedures well, experiencing 75% improvement in the right knee and 75% improvement in the left knee a few minutes following the injections. There were no complications. Band-Aids were applied to the injection sites. Post-procedural instructions were given to the patient and/or their caregiver. Return in about 4 months (around 07/25/2022). Maulik Carrillo MD 03/24/22 15:03 EDT * Joi Rucker MA - 03/24/2022 2:50 PM EDTAssociated Order(s): - Large Joint Arthrocentesis: bilateral knee Procedure - Large Joint Arthrocentesis: bilateral knee on 03/24/2022 2:55 PM Indications: pain Details: 22 G needle, anterolateral approach Medications (Right): 4 mL ropivacaine 0.5 %; 40 mg triamcinolone acetonide 40 MG/ML Aspirate (Right): sent for lab analysis Medications (Left): 4 mL ropivacaine 0.5 %; 40 mg triamcinolone acetonide 40 MG/ML Outcome: tolerated well, no immediate complications Procedure, treatment alternatives, risks and benefits explained, specific risks discussed. Consent was given by the patient. Immediately prior to procedure a time out was called to verify the correctpatient, procedure, equipment, peer support specialist and site/side marked as required. Patient was prepped and draped in the usual sterile fashion. documented in this encounter Plan of Treatment Not on file documented as of this encounter Procedures Procedure Name Priority Date/Time Associated Diagnosis Comments VT ARTHROCENTESIS ASPIR&/INJ MAJOR JT/BURSA W/O US Routine 03/24/2022 2:55 PM EDT Primary osteoarthritis of right knee Primary osteoarthritis of left knee documented in this encounter Results * VT ARTHROCENTESIS ASPIR&/INJ MAJOR JT/BURSA W/O US (03/24/2022 2:55 PM EDT) Narrative Joi Rucker MA - 03/24/2022 2:55 PM EDT Joi Rucker MA ? 03/24/2022 ??3:03 PM - Large Joint Arthrocentesis: bilateral knee on 03/24/2022 2:55 PM Indications: pain Details: 22 G needle, anterolateral approach Medications (Right): 4 mL ropivacaine 0.5 %; 40 mg triamcinolone acetonide 40 MG/ML Aspirate (Right): sent for lab analysis Medications (Left): 4 mL ropivacaine 0.5 %; 40 mg triamcinolone acetonide 40 MG/ML Outcome: tolerated well, no immediate complications Procedure, treatment alternatives, risks and benefits explained, specific risks discussed. Consent was given by the patient. Immediately prior to procedure a time out was called to verify the correct patient, procedure, equipment, peer support specialist and site/side marked as required. Patient was prepped and draped in the usual sterile fashion. Maulik Carrillo MD PROCEDURE/MINOR SURGICAL ORDER ELIJAH Final Result documented in this encounter Visit Diagnoses Diagnosis Primary osteoarthritis of right knee- Primary Primary osteoarthritis of left knee documented in this encounter Administered Medications Inactive Administered Medications - up to 3 most recent administrations Medication Order MAR Action Action Date Dose Rate Site ropivacaine (NAROPIN) 0.5 % injection 4 mL 4 mL, One-Time Injection, Starting on Tue03/24/22 at 1455, For 1 doseIndications:Primary osteoarthritis of right knee,Primary osteoarthritis of left knee Given 03/24/2022 2:55 PM EDT 4 mL ropivacaine (NAROPIN) 0.5 % injection 4 mL 4 mL, One-Time Injection, Starting on Tue03/24/22 at 1455, For 1 doseIndications:Primary osteoarthritis of right knee,Primary osteoarthritis of left knee Given 03/24/2022 2:55 PM EDT 4 mL triamcinolone acetonide (KENALOG-40) injection 40 mg 40 mg, One-Time Injection, Starting on Tue03/24/22 at 1455, For 1 doseIndications:Primary osteoarthritis of right knee,Primary osteoarthritis of left knee Given 03/24/2022 2:55 PM EDT 40 mg triamcinolone acetonide (KENALOG-40) injection 40 mg 40 mg, One-Time Injection, Starting on Tue03/24/22 at 1455, For 1 doseIndications:Primary osteoarthritis of right knee,Primary osteoarthritis of left knee Given 03/24/2022 2:55 PM EDT 40 mg documented in this encounter Care Teams Claim Processing Specialist Relationship Specialty Start Date End Date Toni Knight MD [address] [facility] [address] [place] [address] PCP - General Family Medicine 09/16/16 documented as of this encounter
--- OUTSIDE RECORDS SUMMARY | 2024-08-20 08:48 | XMS_ITS | Encounter Summary ---
Author Organization [facility] Address [address] [place] [address] Care Team Providers Care Deputy Coroner Name Role Phone Toni Knight MD Primary Care Provider Reason for Visit * Reason Onset Date Comments DR CARRILLO RIGHT KNEE INJECTION 02/18/2022 Encounter Details Date Type Department Care Team (Late st Contact Info) Description 02/18/2022 Telephone [facility] ORTHOPEDICS & SPORTS MEDICINE [address] [place] [address] Maulik Carrillo MD [address] [place] [address] DR CARRILLO RIGHT KNEE INJECTION Social History Tobacco Use Types Packs/Day Years Used Date Smoking Tobacco: Former Cigarettes 2014 Smokeless Tobacco: Never Alcohol Use Standard Drinks/Week Comments Yes 0 (1 standard drink = 0.6 oz pur e alcohol) occasional/no abuse [facility] [place] of Occupat ional Health - Occupational Stress [...] encounter Miscellaneous Notes * Telephone Encounter - Puja Justin - 02/19/2022 8:46 AM EDT LVM TO SCHEDULE. * Telephone Encounter - Brenton Ramires RegSched Rep - 02/18/2022 2:30 PM EDT Caller: Zaida Peralta Relationship to patient: Self Best call back number: [phone] Chief complaint: RIGHT KNEE Type of visit: FUP INJECTION LATER AFTERNOON APPT. Tuesday MAY BE TOUGH FOR HER TO ANSWER SHE WORKS AT [employer] documented in this encounter Plan of Treatment Not on file documented as of this encounter Visit Diagnoses Not on filedocumented in this encounter Care Teams Deputy Coroner Relationship Specialty Start Date End Date Toni Knight MD [address] [place] [address] PCP - General Family Medicine 09/16/16 documented as of this encounter
--- OUTSIDE RECORDS SUMMARY | 2024-08-20 08:48 | XMS_ITS | Encounter Summary ---
Author Organization [facility] Address [address] [place] [address] Care Team Providers Care Supervisor Hand Workers Name Role Phone Toni Knight MD Primary Care Provider Encounter Details Date Type Department Care Team (Late st Contact Info) Description 03/29/2022 Telephone [facility] ORTHOPEDICS & SPORTS MEDICINE [address] [place] [address] Maulik Carrillo MD [address] [place] [address] Social History Tobacco Use Types Packs/Day Years Used Date Smoking Tobacco: Former Cigarettes 2014 Smokeless Tobacco: Never Alcohol Use Standard Drinks/Week Comments Yes 0 (1 standard drink = 0.6 oz pur e alcohol) occasional/no abuse [facility] [place] of Occupat ional [facility] - Occupational Stress Questionnaire Answer Date [...] encounter Miscellaneous Notes * Telephone Encounter - Payal Lafleur R.T.(Clifford) - 03/29/2022 8:41 AM EDT Patient says she typically has a mild headache after one steroid injection. She received bilateral at the last visit and the headache has been severe. I advised her to call her primary care. I did recommend benadryl or another allergy medication. She says it is not an allergy just a headache. I reiterated with a severe headache she will need to call her primary care to ensure there is not anotherissue going on. Mando Lafleur RT(R) * Telephone Encounter - Lisa Becerra RegSched Rep - 03/29/2022 8:18 AM EDT Patient states she had an injection on 03/24/22 and every since she had that injection, she has had a serve headache. Patient has taken Tylenol, and Excedrin. The Tylenol did not help and the Excedrinonly took the edge off. Patient uses [facility] pharmacy in [place], she can be reached at [phone], she is currently at work but she said if she does not answer, to please [facility] and she wouold call rite back. documented in this encounter Plan of Treatment Not on file documented as of this encounter Visit Diagnoses Not on filedocumented in this encounter Care Teams Supervisor Hand Workers Relationship Specialty Start Date End Date Toni Knight MD [address] [facility] [address] [facility] [address] [place] [address] PCP - General Family Medicine 09/16/16 documented as of this encounter
--- OUTSIDE RECORDS SUMMARY | 2024-08-20 08:48 | XMS_ITS | Encounter Summary ---
[facility] Organization [facility] Address [address] [place] [address] Care Team Providers Care Analog Ic Design Engineer Name Role Phone Toni Knight MD Primary Care Provider Reason for Visit * Reason Comments Gynecologic Exam Encounter Details Date Type Department Care Team (Late st Contact Info) Description 11/24/2021 3:00 PM EDT Office Visit [facility] OBGYN [address] [place] [address] Guanakito Stroud MD [address] [place] [address] Menopausal symptoms (Primary Dx); Pap test, as part of routine gynecological examination Social History Tobacco Use Types Packs/Day Years Used Date Smoking Tobacco: Former Cigarettes 2014 Smokeless Tobacco: Never Alcohol Use Standard Drinks/Week Comments Yes 0 (1 standard drink = 0.6 oz pur e alcohol) occasional/no abuse [facility] [place] [facility] Occupat ional Health - Occupational Stress [...] Sign Reading Time Taken Comments Blood Pressure 118/80 11/24/2021 2:46 PM EDT Pulse - - Temperature - - Respiratory Rate - - Oxygen Saturation - - Inhaled Oxygen Concentration - - Weight 108 kg (239 lb) 11/24/2021 2:46 PM EDT Height - - Body Mass Index 38.59 11/16/2021 3:17 PM EST documented in this encounter Progress Notes * Nan Welch MA - 11/24/2021 3:00 PM EDTAddended by: NAN WELCH on: 11/24/2021 04:30 PM Modules accepted: Orders * Guanakito Stroud MD - 11/24/2021 3:00 PM EDT 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 HPI Zaida Peralta is a 56 y.o. female, , who presents for annual well woman exam. She ispostmenopausal. Patient denies vaginal bleeding. .. Patient reports problems with: none. There wereno changes to her medical or surgical history since her last visit.. Partner Status: Marital Status: single. New Partners since last visit: no. Additional OFFICE RECEPTIONIST History Current contraception: contraceptive methods: None Desires to: do not start contraception On HRT? No Last Pap : 07/15/2020. Results: neg Last Completed Pap Smear PAP SMEAR (Every 3 Years) Next due on 07/15/2023 07/15/2020 Pap IG, Rfx HPV ASCU History of abnormal Pap smear: no Family history of uterine, colon, breast, or ovarian cancer: yes - mother breast Performs monthly Self-Breast Exam: no Last mammogram: 10/30/2020. Done at [facility] . Last Completed Mammogram Scheduled - MAMMOGRAM (Every 2 Years) Scheduled for 11/24/2021 10/30/2020 Mammo Screening Digital Tomosynthesis Bilateral With CAD 11/20/2019 Mammo Screening Digital Tomosynthesis Bilateral With CAD 11/21/2018 Mammo Screening Digital Tomosynthesis Bilateral With CAD 11/02/2017 Mammo Screening Digital Tomosynthesis Bilateral With CAD 06/30/2017 Mammo Diagnostic Digital Tomosynthesis Left With CAD Only the first 5 history entries have been loaded, but more history exists. Last colonoscopy: 07/14/2020 Last Completed Colonoscopy COLORECTAL CANCER SCREENING (COLONOSCOPY - Every 10 Years) Next due on 07/14/2030 07/14/2020 SCANNED - COLONOSCOPY Last DEXA: None Exercises Regularly: no Feelings of Anxiety or Depression: yes - self controlled Tobacco Usage?: No OB History 1 Para 1 Term 1 AB Living SAB IAB Ectopic Molar Multiple Live Births Health Maintenance Topic Date Due ??? COVID-19 Vaccine (1) Never done ??? TDAP/TD VACCINES (1 - Tdap) Never done ??? ZOSTER VACCINE (1 of 2) Never done ??? LUNG CANCER SCREENING Never done ??? HEPATITIS C SCREENING Never done ??? LIPID PANEL Never done ??? INFLUENZA VACCINE Never done ??? ANNUAL PHYSICAL 07/09/2021 ??? MAMMOGRAM 10/30/2022 ??? Annual Gynecologic Pelvic and Breast Exam 11/25/2022 ??? PAP SMEAR 07/15/2023 ??? COLORECTAL CANCER SCREENING 07/14/2030 ??? Pneumococcal Vaccine 0-64 Aged Out The additional following portions of the patient's history were reviewed and updated as appropriate: allergies, current medications, past family history, past medical history, past social history, past surgical history and problem list. Review of Systems I have reviewed and agree with the CYNDEE DOHERTY, and historical information as entered above. Guanakito Stroud MD Objective BP 118/80 Wt 108 kg (239 lb) BMI 38.59 kg/m?? Physical Exam Breast: Without masses ,nontender, no skin changes or retractions Axilla: Normal, no lymphadenopathy Heart: Regular rate no murmurs rubs or gallops Lungs: Clear to auscultation, normal breath sounds bilaterally Abdomen: Soft nontender, no hepatosplenomegaly, no guarding or rebound, no masses Pelvic exam External genitalia: Normal introitus and vulva Vagina: Normal mucosa no bleeding inflammation or discharge Bladder: Normal position nontender Urethral meatus and urethra: Normal nontender Cervix: No lesions, no discharge, bleeding or inflammation Bimanual: Nontender adnexa clear, no sign of uterine or ovarian enlargement Anal: No external lesions or hemorrhoids Rectovaginal:negative, Hemoccult negative Assessment and Plan Problem List Items Addressed This Visit Genitourinary and Reproductive Menopausal symptoms - Primary 1. 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 2. Reviewed monthly self breast exams. Instructed to call with lumps, pain, or breast discharge. Yearly mammograms ordered. 3. Other: Paps yearly 4. Return in about 1 year (around 11/24/2022) for Annual physical. Guanakito Stroud MD 11/24/2021 documented in this encounter Plan of Treatment Scheduled Orders Name Type Priority Associated Diagnoses Orde r Schedule Pap IG, Rfx HPV ASCU Pathology and Cytology Routine Pap test, as part of routine gynecological examination Expected: 11/24/2021 (Approximate), Expires: 11/24/2022 documented as of this encounter Procedures Procedure Name Priority Date/Time Associated Diagnosis Comments SCANNED - PAP SMEAR 11/24/2021 documented in this encounter Results * SCANNED - PAP SMEAR (11/24/2021) Guanakito Stroud MD CHART REVIEW TABS Final Result documented in this encounter Visit Diagnoses Diagnosis Menopausal symptoms- Primary Symptomatic menopausal or female climacteric states Pap test, as part of routine gynecological examination Screening for malignant neoplasm of the cervix documented in this encounter Care Teams Analog Ic Design Engineer Relationship Specialty Start Date End Date Toni Knight MD [address] [facility] [address] [facility] [address] [place] [id number] PCP - General Family Medicine 09/16/16 documented as of this encounter
--- OUTSIDE RECORDS SUMMARY | 2024-08-20 08:48 | XMS_ITS | Encounter Summary ---
[facility] Address [address] [place] [address] Care Team Providers Care Home Health Administrator Name Role Phone Toni Knight MD Primary Care Provider Reason for Visit * Reason Comments Gynecologic Exam Encounter Details Date Type Department Care Team (Late st Contact Info) Description 06/21/2024 10:15 AM EDT Office Visit [facility] OBGYN [address] [place] [address] Estelita Medeiros, HAT BRUSHER MACHINE [address] [facility] [address] [place] [address] Women's annual routine gynecological examination (Primary Dx); At high risk for breast cancer Social History Tobacco Use Types Packs/Day Years Used Date Smoking Tobacco: Former Cigarettes 1 - 2014 Smokeless Tobacco: Never Alcohol Use Standard Drinks/Week Comments Yes 0 (1 standard drink = 0.6 oz pur e alcohol) occasional/no abuse [facility] [place] of Occupat ional Health - Occupational Stress [...] Pressure 126/82 06/21/2024 9:58 AM EDT Pulse - - Temperature - - Respiratory Rate - - Oxygen Saturation - - Inhaled Oxygen Concentration - - Weight 106 kg (233 lb 12.8 oz) 06/21/2024 9:58 A M EDT Height 167.6 cm (5' 5.98 ) 06/21/2024 9:58 AM ED T Body Mass Index 37.75 06/21/2024 9:58 AM EDT documented in this encounter Progress Notes * Estelita Medeiros, HAT BRUSHER MACHINE - 06/21/2024 10:15 AM EDT Images from the original note were not included. Gynecologic Annual Exam Note HEEL CURVER Annual Exam CC - Here for annual exam. HPI Zaida Peralta is a 59 y.o. female, , who presents for annual well woman exam as a established patient. She is postmenopausal.. Denies vaginal bleeding. There were no changes to her medical or surgical history since her last visit. Marital Status: engaged. She is not currently sexually active. STD testing recommendations have been explained to the patient and she declines STD testing. The patient would like to discuss the following complaints today: None Additional COTTON STRIPPER History On HRT? No Last Pap : 05/02/2023. Results: negative. HPV: negative. Last Completed Pap Smear PAP SMEAR (Every 3 Years) Next due on 05/02/2026 05/02/2023 LIQUID-BASED PAP SMEAR WITH HPV GENOTYPING REGARDLESS OF INTERPRETATION (CHANTELL,COR,MAD) 11/24/2021 SCANNED - PAP SMEAR 07/15/2020 Pap IG, Rfx HPV ASCU History of abnormal Pap smear: yes - years ago per patient 13-14 years ago or longer Family history of uterine, colon, breast, or ovarian cancer: yes - Breast Cancer-mother and cousin Performs monthly Self-Breast Exam: no Last mammogram: 06/19/2024. Done at . There is a copy in the chart. Last Completed Mammogram MAMMOGRAM (Every 2 Years) Next due on 06/19/2026 06/19/2024 Mammo Diagnostic Digital Tomosynthesis Left With CAD 06/11/2024 Mammo Screening Digital Tomosynthesis Bilateral With CAD 05/02/2023 Mammo Screening Digital Tomosynthesis Bilateral With CAD 11/24/2021 Mammo Screening Digital Tomosynthesis Bilateral With CAD 10/30/2020 Mammo Screening Digital Tomosynthesis Bilateral With CAD Only the first 5 history entries have been loaded, but more history exists. Last colonoscopy: has had a colonoscopy 4 years ago Polyps removed and Diverticulosis Last Completed Colonoscopy COLORECTAL CANCER SCREENING (COLONOSCOPY - Every 10 Years) Next due on 07/14/2030 07/14/2020 SCANNED - COLONOSCOPY She has never had a bone density scan Exercises Regularly: no Feelings of Anxiety or Depression: no Tobacco Usage?: No Current Outpatient Medications: omeprazole (priLOSEC) 40 MG capsule, Take 1 capsule by mouth Daily., Disp: 30 capsule, Rfl: 3 Probiotic Product (ALIGN PO), Take by mouth. (Patient not taking: Reported on 06/21/2024), Disp: , Rfl: Patient denies the need for medication refills today. OB History 1 Para 1 Term 1 AB Living SAB IAB Ectopic Molar Multiple Live Births 1 Past 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: Diagnosis Date Acid reflux [...] ABDOMINAL LIGATION Health Maintenance Topic Date Due LIPID PANEL Never done BMI FOLLOWUP Never done TDAP/TD VACCINES (1 - Tdap) Never done ZOSTER VACCINE (1 of 2) Never done LUNG CANCER SCREENING Never done HEPATITIS C SCREENING Never done ANNUAL PHYSICAL 07/08/2021 INFLUENZA VACCINE 04/12/2024 Annual Gynecologic Pelvic and Breast Exam 05/03/2024 COVID-19 Vaccine ( - 2022- season) Never done PAP SMEAR 05/02/2026 MAMMOGRAM 06/19/2026 COLORECTAL CANCER SCREENING 07/14/2030 Pneumococcal Vaccine 0-64 Aged Out The additional following portions of the patient's history were reviewed and updated as appropriate: allergies, current medications, past family history, past medical history, past social history, past surgical history, and problem list. Review of Systems Constitutional: Negative. Respiratory: Negative. Cardiovascular: Negative. Gastrointestinal: Negative. Genitourinary: Negative. Psychiatric/Behavioral: Negative. All other systems reviewed and are negative. I have reviewed and agree with the HPI, ROS, and historical information as entered above. Estelita Conrad APRN Objective BP 126/82 Ht 167.6 cm (65.98 ) Wt 106 kg (233 lb 12.8 oz) BMI 37.75 kg/m?? Physical Exam Constitutional: Appearance: Normal appearance. [...] Items Addressed This Visit Genitourinary and Reproductive At high risk for breast cancer Overview Qualifies for yearly breast MRI. Considering. Will call if desired Other Visit Diagnoses Women's annual routine gynecological examination - Primary Considering BDS. Will notify if desired. 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 Reviewed monthly self breast exams. Instructed to call with lumps, pain, or breast discharge. Yearly mammograms ordered. Reviewed [facility] ovarian cancer screening program. Return in about 1 year (around 06/21/2025) for Annual physical. Estelita Medeiros APRN 06/21/2024 documented in this encounter Plan of Treatment Not on file documented as of this encounter Visit Diagnoses Diagnosis Women's annual routine gynecological examination- Primary At high risk for breast cancer documented in this encounter Care Teams Home Health Administrator Relationship Specialty Start Date End Date Toni Knight MD [address] [place] [facility] [address] [place] [address] PCP - General Family Medicine 09/16/16 documented as of this encounter
--- OUTSIDE RECORDS SUMMARY | 2024-08-20 08:48 | XMS_ITS | Encounter Summary ---
Author Organization [facility] Address [address] [place] [address] Care Team Providers Care Medical Billing Supervisor Name Role Phone Toni Knight MD Primary Care Provider Reason for Visit * Reason Comments Follow-up 4 month follow up; P rimary osteoarthritis of both knees-last cortisone injections given at last visit on 03/24/22 Encounter Details Date Type Department Care Team (Late st Contact Info) Description 07/28/2022 3:30 PM EST Office Visit [facility] [address] [place] [address] Maulik Carrillo MD [address] [place] [address] Primary osteoarthritis of left knee (Primary Dx); Primary osteoarthritis of right knee Social History Tobacco Use Types Packs/Day Years Used Date Smoking Tobacco: Former Cigarettes 2014 Smokeless Tobacco: Never Alcohol Use Standard Drinks/Week Comments Yes 0 (1 standard drink = 0.6 oz pur e alcohol) occasional/no abuse [facility] [place] of Occupat ional Health - Occupational Stress [...] Sign Reading Time Taken Comments Blood Pressure 130/90 07/28/2022 3:19 PM EST Pulse - - Temperature - - Respiratory Rate - - Oxygen Saturation - - Inhaled Oxygen Concentration - - Weight 110 kg (242 lb) 07/28/2022 3:19 PM EST Height 167.6 cm (5' 5.98 ) 07/28/2022 3:19 PM ES T Body Mass Index 39.08 07/28/2022 3:19 PM EST documented in this encounter Progress Notes * Maulik Carrillo MD - 07/28/2022 3:30 PM EST Images from the original note were not included. [facility] Note Subjective Chief Complaint Patient presents with ??? Follow-up 4 month follow up; Primary osteoarthritis of both knees-last cortisone injections given at last visit on 03/24/22 HPI It has been 4 month(s) since Ms. Peralta's last visit. She returns to clinic today for follow-up ofright knee pain. The issue has been ongoing for 4 year(s). She rates her pain a 3/10 on the pain scale. Previous/current treatments: steroid injection (last injection 03/2022). Current symptoms: same as prior visit. The pain is worse with walking, climbing stairs and sleeping; sitting improve the pain. Overall, she is doing better. She would like an injection for her right knee today. Left knee isnot really bothering her that much. I have reviewed the following portions of [...] 1 Tobacco Use ??? Smoking status: Former Packs/day: 1.00 Years: 20.00 Pack years: 20.00 Types: Cigarettes Quit date: 2014 Years since quittin.8 ??? Smokeless tobacco: Never Vaping Use ??? Vaping Use: Never used Substance and Sexual Activity ??? Alcohol use: Yes Comment: occasional/no abuse ??? Drug use: Never ??? Sexual activity: Not Currently control/protection: Post-menopausal Comment: Per Rafael, yes Current Outpatient Medications on File Prior to Visit Medication Sig Dispense Refill ??? cyclobenzaprine (FLEXERIL) 5 MG tablet ??? melatonin 1 MG tablet Take by mouth As Needed for Sleep. ??? omeprazole (priLOSEC) 40 MG capsule Take 1 capsule by mouth Daily. 30 capsule 3 ??? Probiotic Product (ALIGN PO) Take by mouth. ??? ondansetron (Zofran) 4 MG tablet Take 1 tablet by mouth Every 6 (Six) Hours As Needed (FOR COLONOSCOPY PREP). 6 tablet 0 ??? pantoprazole (PROTONIX) 40 MG EC tablet Take 40 mg by mouth Daily. ??? ykkafr-ehquwajuw-vavwkninb sulfates (Suprep Bowel Prep Kit) 17.5-3.13-1.6 GM/177ML solution oral solution Take 1 bottle by mouth Take As Directed. Follow instructions that were mailed to your home. If you didn't receive these call [phone]. 2 bottle 0 No current facility-administered medications on file prior to visit. Allergies Allergen Reactions ??? Bactrim [Sulfamethoxazole-Trimethoprim] Other (See Comments) Drug fever ??? Keflex [Cephalexin] Other (See Comments) Drug fever Review of Systems Musculoskeletal: Positive for arthralgias. All other systems reviewed and are negative. Objective Physical Exam BP 130/90 Ht 167.6 cm (65.98 ) Wt 110 kg (242 lb) BMI 39.08 kg/m?? Body mass index is 39.08 kg/m??. General: Mental Status: Alert Appearance: Cooperative, in no acute distress Build and Nutrition: Obese by BMI female Orientation: Alert and oriented to person, place and time Posture: Normal Gait: Nonantalgic Integument: ?Right knee: no skin lesions, no rash, no ecchymosis ?Left knee: no skin lesions, no rash, no ecchymosis ?? Lower Extremities: ?Right Knee: ?Tenderness:?Mild medial joint line tenderness ?Effusion:?Tra ce ?Swelling: ?None ?Crepitus: ?Positive ?Atrophy: ?None ?Range of motion: ?Extension:?0?Flexion:?120?? Instability: ?No varus laxity, no valgus laxity, negative anterior drawer Deformities:?Mild varus ?Left Knee: ?Tenderness: ?Mild medial joint line tenderness ?Effusion: ?None ?Swelling: ?None ?Crepitus:?Pos itive ?Atrophy: ?None ?Range of motion: ?Extension:?0?Flexion:?120?? Instability: ?No varus laxity, no valgus laxity, negative anterior drawer Deformities:?Mild varus Imaging/Studies Imaging Results (Last 24 Hours) No results found for the last 24 hours. No new imaging today. Assessment and Plan Diagnoses and all orders for this visit: 1. Primary osteoarthritis of left knee (Primary) - Large Joint Arthrocentesis: R knee 2. Primary osteoarthritis of right knee 1. Primary osteoarthritis of left knee 2. Primary osteoarthritis of right knee I reviewed my findings with the patient. Her right knee pain has gotten to the point where she would like to have another injection, but left knee is doing well. Injection was provided for the right knee today, and I will see her back in 4 months, but sooner for any problems. Procedure Note: The potential benefits of performing a therapeutic right knee joint injection, as well as potentialrisks (including, but not limited to infection, swelling, pain, bleeding, bruising, nerve/blood vessel damage, skin color changes, transient elevation in blood glucose levels, and fat atrophy) were discussed with the patient. After informed consent, timeout procedure was performed, and the skin on the right knee was prepped with chlorhexidine soap and alcohol, after which ethyl chloride was applied to the skin at the injection site. Via the anterolateral approach, 1ml of Kenalog 40mg/ml mixed with 4ml 0.5% ropivacaine plain was injected into the knee joint. The patient tolerated the procedurewell, experiencing 90% improvement a few minutes following the injection. There were no complications. Band-Aid was applied to the injection site. Post-procedural instructions were given to the patient and/or their caregiver. Return in about 4 months (around 11/25/2022). Maulik Carrillo MD 07/28/22 15:48 EST * Adilson Villela MA - 07/28/2022 3:30 PM ESTAssociated Order(s): Large Joint Arthrocentesis: R knee Procedure Large Joint Arthrocentesis: R knee Date/Time: 07/28/2022 3:39 PM Consent given by: patient Site marked: site marked Timeout: Immediately prior to procedure a time out was called to verify the correct patient, procedure, equipment, customer support technician and site/side marked as required Supporting Documentation Indications: pain Procedure Details Location: knee - R knee Needle size: 22 G Approach: anterolateral Medications administered: 4 mL ropivacaine 0.5 %; 40 mg triamcinolone acetonide 40 MG/ML Patient tolerance: patient tolerated the procedure well with no immediate complications documented in this encounter Plan of Treatment Not on file documented as of this encounter Procedures Procedure Name Priority Date/Time Associated Diagnosis Comments DE ARTHROCENTESIS ASPIR&/INJ MAJOR JT/BURSA W/O US Routine 07/28/2022 3:39 PM EST Primary osteoarthritis of left knee documented in this encounter Results * DE ARTHROCENTESIS ASPIR&/INJ MAJOR JT/BURSA W/O US (07/28/2022 3:39 PM EST) Narrative Adilson Villela MA - 07/28/2022 3:39 PM EST Adilson Villela MA ? 07/28/2022 ??3:48 PM Large Joint Arthrocentesis: R knee Date/Time: 07/28/2022 3:39 PM Consent given by: patient Site marked: site marked Timeout: Immediately prior to procedure a time out was called to verify the correct patient, procedure, equipment, customer support technician and site/side marked as required Supporting Documentation Indications: pain Procedure Details Location: knee - R knee Needle size: 22 G Approach: anterolateral Medications administered: 4 mL ropivacaine 0.5 %; 40 mg triamcinolone acetonide 40 MG/ML Patient tolerance: patient tolerated the procedure well with no immediate complications Maulik Carrillo MD PROCEDURE/MINOR SURGICAL ORDER ELIJAH Final Result documented in this encounter Visit Diagnoses Diagnosis Primary osteoarthritis of left knee- Primary Primary osteoarthritis of right knee documented in this encounter Administered Medications Inactive Administered Medications - up to 3 most recent administrations Medication Order MAR Action Action Date Dose Rate Site ropivacaine (NAROPIN) 0.5 % injection 4 mL 4 mL, One-Time Injection, Starting on Tue07/28/22 at 1539, For 1 doseIndications:Primary osteoarthritis of left knee Given 07/28/2022 3:39 PM EST 4 mL triamcinolone acetonide (KENALOG-40) injection 40 mg 40 mg, One-Time Injection, Starting on Tue07/28/22 at 1539, For 1 doseIndications:Primary osteoarthritis of left knee Given 07/28/2022 3:39 PM EST 40 mg documented in this encounter Care Teams Medical Billing Supervisor Relationship Specialty Start Date End Date Toni Knight MD [address] [facility] [address] [place] [address] PCP - General Family Medicine 09/16/16 documented as of this encounter
--- OUTSIDE RECORDS SUMMARY | 2024-08-20 08:48 | XMS_ITS | Encounter Summary ---
Author Organization [facility] Address [address] [place] [address] Care Team Providers Care Clinical Trials Data Coordinator Name Role Phone Toni Knight MD Primary Care Provider Reason for Visit * Reason Onset Date Comments RESCHEDULING- DR LAI 04/12/2024 Encounter Details Date Type Department Care Team (Late st Contact Info) Description 04/12/2024 Telephone [facility] GASTROENTEROLOGY [address] [phone] Charles Lai MD [address] [place] [id number] RESCHEDULING- DR LAI Social History Tobacco Use Types Packs/Day Years Used Date Smoking Tobacco: Former Cigarettes 2014 Smokeless Tobacco: Never Alcohol Use Standard Drinks/Week Comments Yes 0 (1 standard drink = 0.6 oz pur e alcohol) occasional/no abuse [facility] of Occupat ional Health - Occupational Stress [...] encounter Miscellaneous Notes * Telephone Encounter - Jus He RegSched Rep - 04/12/2024 8:46 AM EDT Lvm for pt to return call * Telephone Encounter - Estelita Ortiz RegSched Rep - 04/12/2024 8:33 AM EDT Hub staff attempted to follow warm transfer process and was unsuccessful Caller: Zaida Peralta Relationship to patient: Self Best call back number: [phone] Patient is needing: PATIENT HAD AN APPT ON 06/[address] LAI THAT WAS CANCELED AND THEY RETURNED CALL TO RESCHEDULE. PATIENT IS AT WORK AND MAY NOT BE ABLE TO ANSWER. PLEASE CALL PATIENT. documented in this encounter Plan of Treatment Not on file documented as of this encounter Visit Diagnoses Not on filedocumented in this encounter Care Teams Clinical Trials Data Coordinator Relationship Specialty Start Date End Date Toni Knight MD [facility] [address] [place] [address] PCP - General Family Medicine 09/16/16 documented as of this encounter
[2024-08-20] MEDS: LACTATED RINGERS 1000ML 1,000 ML 25 ML IV (08:49)
--- OUTSIDE RECORDS SUMMARY | 2024-08-20 08:49 | XMS_ITS | Encounter Summary ---
Author Organization [facility] Address [address] [place] [address] Care Team Providers Care Kiss Mixer Name Role Phone Toni Knight MD Primary Care Provider Reason for Visit * Reason Onset Date Comments Med Refill 07/21/2020 Encounter Details Date Type Department Care Team (Late st Contact Info) Description 07/21/[address] [facility] GASTROENTEROLOGY [address] [phone] Charles Lai MD [address] [address] Gastroesophageal reflux disease, unspecified whether esophagitis present (Primary Dx) Social History Tobacco Use Types Packs/Day Years Used Date Smoking Tobacco: Former Cigarettes 2014 Smokeless Tobacco: Never Alcohol Use Standard Drinks/Week Comments Yes 0 (1 standard drink = 0.6 oz pur e alcohol) occasional/no abuse [facility] of Occupat ional Health - Occupational Stress [...] encounter Miscellaneous Notes * Telephone Encounter - Tammy Walters RMA - 07/21/2020 12:53 PM EST Patient called waiting on Omeprzole 40 mg prescription to be signed and sent to preferred pharmacy. documented in this encounter Plan of Treatment Not on file documented as of this encounter Visit Diagnoses Diagnosis Gastroesophageal reflux disease, unspecified whether esophagitis present- Primary documented in this encounter Care Teams Kiss Mixer Relationship Specialty Start Date End Date Toni Knight MD [facility]0 [facility] [address] [facility] [address] [place] [address] PCP - General Family Medicine 09/16/16 documented as of this encounter
--- OUTSIDE RECORDS SUMMARY | 2024-08-20 08:49 | XMS_ITS | Encounter Summary ---
Author Organization [facility] Address [address] [place] [id number] Care Team Providers Care Assistant Superintendent Name Role Phone Toni Knight MD Primary Care Provider Reason for Visit * Reason Comments Follow-up 3 month follow up - Primary osteoarthritis of left knee - injection given 03/05/2020 Encounter Details Date Type Department Care Team (Late st Contact Info) Description 06/09/2020 3:30 PM EDT Office Visit [facility] [address] [place] [address] Maulik Carrillo MD [address] [place] [address] Primary osteoarthritis of left knee (Primary Dx) Social History Tobacco Use Types Packs/Day Years Used Date Smoking Tobacco: Former Cigarettes 2014 Smokeless Tobacco: Never Comments No Sex and Gender Information Value Date Recorded Sex Assigned at Not on file Legal Sex Female 10:33 AM EDT Gender Identity Not on file Sexual Orientation Not on file documented as of this encounter Last Filed Vital Signs Vital Sign Reading Time Taken Comments Blood Pressure - - Pulse 83 06/09/2020 3:25 PM EDT Temperature - - Respiratory Rate - - Oxygen Saturation 96% 06/09/2020 3:25 PM EDT Inhaled Oxygen Concentration - - Weight 103 kg (227 lb) 06/09/2020 3:25 PM EDT Height 167.6 cm (5' 5.98 ) 06/09/2020 3:25 PM ED T Body Mass Index 36.66 06/09/2020 3:25 PM EDT documented in this encounter Progress Notes * Maulik Carrillo MD - 06/09/2020 3:30 PM EDT Images from the original note were not included. [facility] [place] Orthopaedic Surgery Clinic Note Subjective Chief Complaint Patient presents with ??? Follow-up 3 month follow up - Primary osteoarthritis of left knee - injection given 03/05/2020 HPI It has been 3 month(s) since Ms. Peralta's last visit. She returns to clinic today for follow-up ofleft knee arthritis. She rates her pain a 2/10 on the pain scale. Previous/current treatments: bracing and NSAIDS. Current symptoms: pain, grinding, stiffness and giving way/buckling. The pain is worse with sleeping; resting improve the pain. Overall, she is doing better. She would like to have another injection today. Injection provided relief on her last visit. I have reviewed the following portions of the patient's history and agree with: History of Present Illness and Review of Systems There is no problem list on file for this patient. Past 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: Diagnosis Date ??? Acid reflux Past Surgical History: Procedure Laterality Date ??? BREAST CYST ASPIRATION 2003? PT UNSURE WHICH BREAST ??? BREAST CYST ASPIRATION 2009? PT UNSURE WHICH BREAST ??? CARDIAC ABLATION ??? TONSILLECTOMY ??? TUBAL ABDOMINAL LIGATION Family History Problem Relation Age of Onset ??? Breast cancer Mother 60'S ??? Cancer Mother ??? Hypertension Mother ??? Breast cancer Cousin 30's ??? No Known Problems Father ??? Ovarian cancer Neg Hx ??? Endometrial cancer Neg Hx Social History Socioeconomic History ??? Marital status: Spouse name: Not on file ??? Number of children: Not on file ??? Years of education: Not on file ??? Highest education level: Not on file Tobacco Use ??? Smoking status: Former Smoker Packs/day: 1.00 Years: 20.00 Pack years: 20.00 Types: Cigarettes Quit date: 2014 Years since quittin.7 ??? Smokeless tobacco: Never Used Substance and Sexual Activity ??? Drug use: Never ??? Sexual activity: Defer Current Outpatient Medications on File Prior to Visit Medication Sig Dispense Refill ??? melatonin 1 MG tablet Take by mouth As Needed for Sleep. ??? pantoprazole (PROTONIX) 40 MG EC tablet Take 40 mg by mouth Daily. ??? Probiotic Product (ALIGN PO) Take by mouth. No current facility-administered medications on file prior [...] sores, hematuria and urgency. Musculoskeletal: Positive for arthralgias and joint swelling. Negative for back pain, gait problem,myalgias, neck pain and neck stiffness. Skin: Negative [...] and is not hyperactive. Objective Physical Exam Pulse 83 Ht 167.6 cm (65.98 ) Wt 103 kg (227 lb) SpO2 96% BMI 36.66 kg/m?? Body mass index is 36.66 kg/m??. General: Mental Status: Alert Appearance: Cooperative, in no acute distress Build and Nutrition: Overweight female Orientation: Alert and oriented to person, place and time Posture: Normal Gait: Slight limp on the left Lower Extremities: Left Knee: Tenderness: Mild medial and lateral joint line tenderness Effusion: None Swelling: None Crepitus: Positive Atrophy: None Range of motion: Extension: 0?? Flexion: 130?? Instability: No varus laxity, no valgus laxity, negative anterior drawer Deformities: None Assessment and Plan Zaida was seen today for follow-up. Diagnoses and all orders for this visit: Primary osteoarthritis of left knee - Large Joint Arthrocentesis: L knee 1. Primary osteoarthritis of left knee I reviewed my findings with the patient today. She would like to have an injection for her left knee, and this was provided today. I will see her back in 4 months, but sooner for any problems. She may be a candidate for Visco supplementation injections in the future. Procedure Note: The potential benefits of performing a therapeutic left knee joint injection, as well as potential risks (including, but not limited to infection, swelling, pain, bleeding, bruising, nerve/blood vessel damage, skin color changes, transient elevation in blood glucose levels, and fat atrophy) were discussed with the patient. After informed consent, timeout procedure was performed, and the skin on the left knee was prepped with chlorhexidine soap and alcohol, after which ethyl chloride was appliedto the skin at the injection site. Via the anterolateral approach, 1ml of Kenalog 40mg/ml mixed with 4ml 0.5% ropivacaine plain was injected into the knee joint. The patient tolerated the procedure we ll, experiencing 50% improvement a few minutes following the injection. There were no complications. Band-Aid was applied to the injection site. Post- procedural instructions were given to the patientand/or their caregiver. Return in about 4 months (around 10/09/2020). Medical Decision Making Management Options : prescription/IM medicine Maulik Carrillo MD 06/09/20 16:19 EDT Parminder disclaimer: Much of this encounter note is an electronic motel keeper/translation of spoken language to printed text. The electronic translation of spoken language may permit erroneous, or at times, nonsensicalwords or phrases to be inadvertently transcribed; Although I have reviewed the note for such errors, some may still exist. * Joi Sutton CMA - 06/09/2020 3:30 PM EDTAssociated Order(s): Large Joint Arthrocentesis: L knee Post-Procedure Diagnose(s): Primary osteoarthritis of left knee Procedure Large Joint Arthrocentesis: L knee Date/Time: 06/09/2020 4:01 PM Consent given by: patient Site marked: site marked Timeout: Immediately prior to procedure a time out was called to verify the correct patient, procedure, equipment, direct support staff member and site/side marked as required Supporting Documentation Indications: pain Procedure Details Location: knee - L knee Preparation: Patient was prepped and draped in the usual sterile fashion Needle size: 22 G Approach: anterolateral Medications administered: 4 mL ropivacaine 0.5 %; 40 mg triamcinolone acetonide 40 MG/ML Patient tolerance: patient tolerated the procedure well with no immediate complications documented in this encounter Plan of Treatment Not on file documented as of this encounter Procedures Procedure Name Priority Date/Time Associated Diagnosis Comments GA ARTHROCENTESIS ASPIR&/INJ MAJOR JT/BURSA W/O US Routine 06/09/2020 3:30 PM EDT Primary osteoarthritis of left knee documented in this encounter Results * GA ARTHROCENTESIS ASPIR&/INJ MAJOR JT/BURSA W/O US (06/09/2020 3:30 PM EDT) Narrative Joi Sutton CMA - 06/09/2020 3:30 PM EDT Joi Sutton CMA ? 06/09/2020 ??4:20 PM Large Joint Arthrocentesis: L knee Date/Time: 06/09/2020 4:01 PM Consent given by: patient Site marked: site marked Timeout: Immediately prior to procedure a time out was called to verify the correct patient, procedure, equipment, direct support staff member and site/side marked as required Supporting Documentation Indications: pain Procedure Details Location: knee - L knee Preparation: Patient was prepped and draped in the usual sterile fashion Needle size: 22 G Approach: anterolateral Medications administered: 4 mL ropivacaine 0.5 %; 40 mg triamcinolone acetonide 40 MG/ML Patient tolerance: patient tolerated the procedure well with no immediate complications Maulik Carrillo MD PROCEDURE/MINOR SURGICAL ORDER ELIJAH Final Result documented in this encounter Visit Diagnoses Diagnosis Primary osteoarthritis of left knee- Primary documented in this encounter Administered Medications Inactive Administered Medications - up to 3 most recent administrations Medication Order MAR Action Action Date Dose Rate Site ropivacaine (NAROPIN) 0.5 % injection 4 mL 4 mL, One-Time Injection, Starting on Tue06/09/20 at 1601, For 1 doseIndications:Primary osteoarthritis of left knee Given 06/09/2020 4:01 PM EDT 4 mL triamcinolone acetonide (KENALOG-40) injection 40 mg 40 mg, One-Time Injection, Starting on Tue06/09/20 at 1601, For 1 doseIndications:Primary osteoarthritis of left knee Given 06/09/2020 4:01 PM EDT 40 mg documented in this encounter Care Teams Assistant Superintendent Relationship Specialty Start Date End Date Toni Knight MD [address] [place] [facility] [address] [facility] [address] [place] [address] PCP - General Family Medicine 09/16/16 documented as of this encounter
--- OUTSIDE RECORDS SUMMARY | 2024-08-20 08:49 | XMS_ITS | Encounter Summary ---
Author Organization [facility] Address [address] [place] [address] Care Team Providers Care Technician Anatomic Pathology Name Role Phone Toni Knight MD Primary Care Provider Reason for Referral * Diagnostic Imaging (Routine) - Closed Specialty Diagnoses / Procedures Referred By Contac t Referred To Contact Radiology Diagnoses Breast pain, left Procedures Mammo Diagnostic Digital Tomosynthesis Left With CAD Guanakito Stroud MD [address] [place] [address] Phone: tel: fax: [place] [address] Phone: tel: Referral ID Status Reason Start Date Expiration Date Visits Re quested Visits Authorized [id number] Closed 06/10/2017 06/10/2018 1 1 Reason for Visit * Diagnostic Imaging (Routine) - Closed Specialty Diagnoses / Procedures Referred By Contac t Referred To Contact Radiology Diagnoses Breast pain, left Procedures Mammo Diagnostic Digital Tomosynthesis Left With CAD Guanakito Stroud MD [address] [place] [address] Phone: tel: fax: [facility] [address] [place] [address] Phone: tel: Referral ID Status Reason Start Date Expiration Date Visits Re quested Visits Authorized [id number] Closed 06/10/2017 06/10/2018 1 1 Encounter Details Date Type Department Care Team (Late st Contact Info) Description 06/30/2017 8:01 AM EDT - 06/30/2017 11:59 PM EDT Hospital Encounter [facility] BREAST [place] [address] [facility] [address] [place] [address] Guanakito Stroud MD [address] [facility] [address] [place] [address] Breast pain, left Discharge Disposition: Home or Self Care Social History Tobacco Use Types Packs/Day Years Used Date Smoking Tobacco: Never Assessed Comments No Sex and Gender Information Value Date Recorded Sex Assigned at Not on file Legal Sex Female 10:33 AM EDT Gender Identity Not on file Sexual Orientation Not on file documented as of this encounter Plan of Treatment Not on file documented as of this encounter Procedures Procedure Name Priority Date/Time Associated Diagnosis Comments MAMMO DIAGNOSTIC DIGITAL TOMOSYNTHESIS LEFT W CAD Routine 06/30/2017 8:28 AM EDT Breast pain, left documented in this encounter Results * Mammo Diagnostic Digital Tomosynthesis Left With CAD (06/30/2017 8:28 AM EDT) Anatomical Region Laterality Modality Breast Left Mammography 06/30/2017 9:27 AM EDT Impressions 06/30/2017 9:29 AM EDT Stable left mammogram BI-RADS CATEGORY: ??2, BENIGN RECOMMENDATION: ??Return to screening mammography. Clinical follow-up of the patient's breast pain. CAD was utilized. The standard false-negative rate of mammography is between 10% and 25%. Complex patterns or increased breast density will markedly elevate the false-negative rate of mammography. ?? A letter, in lay terminology, with the results of this exam was given to the patient at the time of the visit. This report was finalized on 06/30/2017 9:[address] Vanna Proctor MD. Narrative 06/30/2017 9:29 AM EDT LEFT DIAGNOSTIC MAMMOGRAM CLINICAL INDICATION: ??52-year-old female with intermittent diffuse medial left breast pain TECHNIQUE: Unilateral full field digital mammography was performed in both 2 and 3-dimensional acquisitions. Additional spot compression 2-D/3-D MLO and CC views were performed. COMPARISON: Prior exams, dating back to 2010 FINDINGS: There are scattered areas of fibroglandular density. Asymmetries and nodularity in the right breast are stable. Calcifications in the anterolateral left breast are stable. There is no new mass, group of calcifications, or distortion to suggest to suggest malignancy. Guanakito Stroud MD IMG MAMMOGRAPHY ORDERABLES Final Result documented in this encounter Visit Diagnoses Diagnosis Breast pain, left documented in this encounter Care Teams Technician Anatomic Pathology Relationship Specialty Start Date End Date Toni Knight MD [address] [facility] [address] [facility] [address] [place] [address] PCP - General Family Medicine 09/16/16 documented as of this encounter
--- OUTSIDE RECORDS SUMMARY | 2024-08-20 08:49 | XMS_ITS | Encounter Summary ---
Author Organization [facility] Address [address] [place] [address] Care Team Providers Care Flight Crew Time Clerk Name Role Phone Toni Knight MD Primary Care Provider Reason for Visit * Reason Onset Date Comments DR. CARRILLO- ENRIQUE REQUEST 10/20/2021 Encounter Details Date Type Department Care Team (Late st Contact Info) Description 10/20/2021 Telephone [facility] ORTHOPEDICS & SP[facility]TS MEDICINE [address] [place] [address] Maulik Carrillo MD [address] [place] [address] DR. CARRILLO- ENRIQUE REQUEST Social History Tobacco Use Types Packs/Day Years Used Date Smoking Tobacco: Former Cigarettes 2014 Smokeless Tobacco: Never Alcohol Use Standard Drinks/Week Comments Yes 0 (1 standard drink = 0.6 oz pur e alcohol) occasional/no abuse [facility] of Occupat ional Health - Occupational Stress [...] Telephone Encounter - Payal Lafleur R.T.(Clifford) - 10/20/2021 2:43 PM EST LVM to let patient know there is not a particular brand we recommend. She can ride an upright or recumbent based on her comfort. * Telephone Encounter - Payal Lafleur R.T.(Clifford) - 10/20/2021 8:52 AM EST Radha, Please see below and advise. Mando Tamayo * Telephone Encounter - Katiuska Valladares RegSched Rep - 10/20/2021 8:31 AM EST Caller: PATIENT Relationship to patient: SELF Best call back number: [phone] Patient is needing: PATIENT WAS CALLING TO SCHEDULE HER NEXT INJECTION FOR HER RIGHT KNEE. PATIENT'S LAST INJECTION WITH DR. CARRILLO WAS ON 08.03.21. PATIENT STATED DR. CARRILLO HAD PREVIOUSLY MENTIONED TO HER THAT RIDING A BIKE WOULD HELP BUT PATIENT WANTED TO FIND OUT WHAT TYPE OF BIKE HE RECOMMENDS BEFORE BUYING ONE. PATIENT IS AT WORK AND MAY NOT BE ABLE TO ANSWER THE PHONE BUT SAID YOU CAN LEAVE A MESSAGE. THANK YOU! documented in this encounter Plan of Treatment Not on file documented as of this encounter Visit Diagnoses Not on filedocumented in this encounter Care Teams Flight Crew Time Clerk Relationship Specialty Start Date End Date Toni Knight MD [facility] [address] [facility] [address] [place] [address] PCP - General Family Medicine 09/16/16 documented as of this encounter
--- OUTSIDE RECORDS SUMMARY | 2024-08-20 08:49 | XMS_ITS | Encounter Summary ---
Author Organization [facility] Address [address] [place] [address] Care Team Providers Care Laundry Room Attendant Name Role Phone Toni Knight MD Primary Care Provider Reason for Visit * Reason Onset Date Comments VOICEMAIL 07/17/2020 Encounter Details Date Type Department Care Team (Late st Contact Info) Description 07/17/2020 Telephone [facility] GASTROENTEROLOGY [address] [place] [phone] Romina Griffith RegSched Rep VOICEMAIL Social History Tobacco Use Types Packs/Day Years Used Date Smoking Tobacco: Former Cigarettes 2014 Smokeless Tobacco: Never Alcohol Use Standard Drinks/Week Comments Yes 0 (1 standard drink = 0.6 oz pur e alcohol) occasional/no abuse [facility] of Occupat ional Health - Occupational Stress [...] encounter Miscellaneous Notes * Telephone Encounter - Isi Sauer MA - 07/21/2020 12:39 PM EST PATIENT CALLED BACK TO CLARIFY SENNA AND MIRALAX. SHE WAS NOT SURE WHETHER TO TAKE EVERYDAY OR NOT.I TOLD HER PER [facility] NOTES SHE IS TO TAKE EVERY DAY. * Telephone Encounter - Romina Griffith - 07/18/2020 4:31 PM EST CALLED TO INFORM PT OF DR. LAI RESPONSE. NO ANSWER. LVM WITH DETAILS. * Telephone Encounter - Charles Lai MD - 07/18/2020 12:55 PM EST Senna and miralax are bid every day. Sounds good for omeprazole, i'll sign the order. ty * Telephone Encounter - Romina Griffith - 07/17/2020 3:[address] Lai Ms. Peralta called in re: to a couple different things. First, she would like a Rx for her omeprazole per your suggestion on her EGD 40mg BID). Secondly, she feels as she is getting more constipated and states she had samples of Linzess a while back and was working but insurance did not cover and did not get a RX since it was so expensive. I have advised her the Linzess Patient Assistance can be offered to her, but you would need to sign a form if Linzess is a medication you would be comfortable prescribing. For the time being, the Senna and Miralax, is this BID every day or just PRN? Please advise Thank you Romina * Telephone Encounter - Romina Griffith - 07/17/2020 10:58 AM EST PT CALLED LVM REQUESTING RETURN CALL, RETURN PT CALL. NO ANSWER. LVM documented in this encounter Plan of Treatment Not on file documented as of this encounter Visit Diagnoses Not on filedocumented in this encounter Care Teams Laundry Room Attendant Relationship Specialty Start Date End Date Toni Knight MD [address] [facility] [address] [facility] [address] [place] [address] PCP - General Family Medicine 09/16/16 documented as of this encounter
--- OUTSIDE RECORDS SUMMARY | 2024-08-20 08:49 | XMS_ITS | Encounter Summary ---
[facility] [address] [place] [address] Care Team Providers Care Plasterer Maintenance Name Role Phone Toni Knight MD Primary Care Provider Reason for Visit * Reason Comments Pain Encounter Details Date Type Department Care Team (Late st Contact Info) Description 03/05/2020 1:40 PM EDT Office Visit [facility] [address] [place] [address] Maulik Carrillo MD [address] [facility] [address] [place] [address] Primary osteoarthritis of left knee (Primary Dx) [...] Taken Comments Blood Pressure - - Pulse 92 03/05/2020 1:52 PM EDT Temperature - - Respiratory Rate - - Oxygen Saturation 98% 03/05/2020 1:52 PM EDT Inhaled Oxygen Concentration - - Weight 101 kg (222 lb 12.8 oz) 03/05/2020 1:52 P M EDT Height 167.6 cm (5' 6 ) 03/05/2020 1:52 PM EDT Body Mass Index 35.96 03/05/2020 1:52 PM EDT documented in this encounter Progress Notes * Maulik Carrillo MD - 03/05/2020 1:40 PM EDT Images from the original note were not included. [facility] Note Subjective Chief Complaint Patient presents with ??? Left Knee - Pain HPI Zaida Peralta is a 54 y.o. female who presents with left knee pain. Onset: twisting injury.The issue has been ongoing for 3 month(s). Pain is a 4/10 on the pain scale. Pain is described as dull, aching and throbbing. Associated symptoms include pain, swelling, popping, grinding, stiffness and giving way/buckling. The pain is worse with walking, sitting, climbing stairs, sleeping, workingand leisure; resting improve the pain. Previous treatments have included: bracing and NSAIDS. She notes the pain back in November when she was walking unevenly. She has had an MRI performed. I have reviewed the following portions of the patient's history:History of Present Illness There is no problem list on file [...] Years: 20.00 Pack years: 20.00 Types: Cigarettes Last attempt to quit: 2015 Years since quittin.4 ??? Smokeless tobacco: Never Used Substance and [...] is not hyperactive. Objective Physical Exam Pulse 92 Ht 167.6 cm (66 ) Wt 101 kg (222 lb 12.8 oz) SpO2 98% BMI 35.96 kg/m?? Body mass index is 35.96 kg/m??. General: Mental Status: Alert Appearance: Cooperative, in no acute distress Build and Nutrition: Overweight female Orientation: Alert and oriented to person, place and time Posture: Normal Gait: Normal Integument: Left knee: No skin lesions, no rash, no ecchymosis Neurologic: Sensation: Left foot: Intact to light touch on the dorsal and plantar aspect Motor: Left lower extremity: 5/5 quadriceps, hamstrings, ankle dorsiflexors, and ankle plantar flexors Vascular: Left lower extremity: 2+ dorsalis pedis pulse, prompt capillary refill Lower Extremities: Left Knee: Tenderness: Mild medial and lateral joint line tenderness Effusion: None Swelling: None Crepitus: Positive Atrophy: None Range of motion: Extension: 0?? Flexion: 130?? Instability: No varus laxity, no valgus laxity, negative anterior drawer Deformities: None Imaging/Studies Imaging Results (Last 24 Hours) Procedure Component Value Units Date/Time XR Knee 4+ View Left [[id number]] Resulted: 03/05/201420 Updated: 03/05/201421 Narrative: Left Knee Radiographs Indication: left knee pain Views: Standing AP's and skiers of both knees, with lateral and sunrise views of the left knee Comparison: no prior studies available Findings: Medial joint space narrowing, patellofemoral spurring, medial osteophytes, with no acute bony abnormalities. No unusual bony features. MRI from [facility] from 02/19/2020 of the left knee was reviewed, which showed degeneration of the knee, with no acute meniscal or ligamentous pathology. Assessment and Plan Zaida was seen today for pain. Diagnoses and all orders for this visit: Primary osteoarthritis of left knee - XR Knee 4+ View Left - Large Joint Arthrocentesis 1. Primary osteoarthritis of left knee I reviewed my findings with the patient today. She has degeneration in the left knee, and I offeredher an intra-articular injection. She may also be a good candidate for Visco supplementation injections in the future. I will see her back in 3 months, but sooner for any problems. I do not believe that surgical intervention be particularly helpful at this time. Of note, she had 100% relief just a few minutes following the injection today. Return in about 3 months (around 06/05/2020). Medical Decision Making Management Options : prescription/IM medicine Data/Risk: radiology tests and independent visualization of imaging, lab tests, or EMG/NCV Maulik Carrillo MD 03/05/20 14:49 Dragon disclaimer: Much of this encounter note is an electronic global program manager/translation of spoken language to printed text. The electronic translation of spoken language may permit erroneous, or at times, nonsensicalwords or phrases to be inadvertently transcribed; Although I have reviewed the note for such errors, some may still exist. * Milad Gandara R.T.(R) - 03/05/2020 1:40 PM EDTAssociated Order(s): Large Joint Arthrocentesis Procedure Large Joint Arthrocentesis Date/Time: 03/05/2020 2:38 PM Consent given by: patient Site marked: site marked Timeout: Immediately prior to procedure a time out was called to verify the correct patient, procedure, equipment, client support manager and site/side marked as required Supporting Documentation Indications: pain Procedure Details Location: knee - Preparation: Patient was prepped and draped in [...] Procedure Name Priority Date/Time Associated Diagnosis Comments XR KNEE 4+ VW LEFT Routine 03/05/2020 2: 17 PM EDT Primary osteoarthritis of left knee WA ARTHROCENTESIS ASPIR&/INJ MAJOR JT/BURSA W/O US Routine 03/05/2020 1:40 PM EDT Primary osteoarthritis of left knee documented in this encounter Results * XR Knee 4+ View Left (03/05/2020 2:17 PM EDT) Anatomical Region Laterality Modality Lower Extremities, Knee Left Xray Narrative 03/05/2020 2:22 PM EDT Left Knee Radiographs Indication: left knee pain Views: Standing AP's and skiers of both knees, with lateral and sunrise views of the left knee Comparison: no prior studies available Findings: Medial joint space narrowing, patellofemoral spurring, medial osteophytes, with no acute bony abnormalities. ??No unusual bony features. Maulik Carrillo MD IMG DIAGNOSTIC IMAGING ORDERAB LES Final Result * WA ARTHROCENTESIS ASPIR&/INJ MAJOR JT/BURSA W/O US (03/05/2020 1:40 PM EDT) Narrative Milad Gandara R.T.(R) - 03/05/2020 1:40 PM EDT Milad Gandara R.T.(R) ? 03/05/2020 ??2:49 PM Large Joint Arthrocentesis Date/Time: 03/05/2020 2:38 PM Consent given by: patient Site marked: site marked Timeout: Immediately prior to procedure a time out was called to verify the correct patient, procedure, equipment, client support manager and site/side marked as required Supporting Documentation Indications: pain Procedure Details Location: knee - Preparation: Patient was prepped and draped in the usual sterile fashion Needle size: 22 G Approach: anterolateral Medications administered: 4 mL ropivacaine 0.5 %; 40 mg triamcinolone acetonide 40 MG/ML Patient tolerance: patient tolerated the procedure well with no immediate complications Result [facility] Maulik Carrillo MD PROCEDURE/MINOR SURGICAL ORDER ELIJAH Final Result documented in this encounter Visit Diagnoses Diagnosis Primary osteoarthritis of left knee- Primary documented in this encounter Administered Medications Inactive Administered Medications - up to 3 most recent administrations Medication Order MAR Action Action Date Dose Rate Site ropivacaine (NAROPIN) 0.5 % injection 4 mL 4 mL, One-Time Injection, Starting on Tue03/05/20 at 1438, For 1 doseIndications:Primary osteoarthritis of left knee Given 03/05/2020 2:38 PM EDT 4 mL triamcinolone acetonide (KENALOG-40) injection 40 mg 40 mg, One-Time Injection, Starting on Tue03/05/20 at 1438, For 1 doseIndications:Primary osteoarthritis of left knee Given 03/05/2020 2:38 PM EDT 40 mg documented in this encounter Care Teams Plasterer Maintenance Relationship Specialty Start Date End Date Toni Knight MD [address] [place] [facility] [address] [facility] [address] [place] [address] PCP - General Family Medicine 09/16/16 documented as of this encounter
--- OUTSIDE RECORDS SUMMARY | 2024-08-20 08:49 | XMS_ITS | Encounter Summary ---
Author Organization [facility] ystem Address [address] [place] [address] Care Team Providers Care Pipe Fitter Welding Name Role Phone Unavailable Primary Care Provider Unavailabl e Encounter Details Date Type Department Care Team (Late st Contact Info) Description 09/27/2011 Historical Mammograp hy Encounter [facility] HISTORICAL [facility]V [address] [place] [address] Interface, See Report Social History Tobacco Use Types Packs/Day Years Used Date Smoking Tobacco: Never Assessed Comments Unknown Sex and Gender Information Value Date Recorded Sex Assigned at Not on file Legal Sex Female 10:33 AM EDT Gender Identity Not on file Sexual Orientation Not on file documented as of this encounter Plan of Treatment Not on file documented as of this encounter Procedures Procedure Name Priority Date/Time Associated Diagnosis Comments MAMMO HISTORICAL RESULT Routine 09/27/2011 11:21 AM EST documented in this encounter Results * MAMMO HISTORICAL RESULT (09/27/2011 11:21 AM EST) Anatomical Region Laterality Modality Breast Mammography 09/27/2011 11:2 1 AM EST Narrative 09/27/2011 4:23 PM EST ?[facility] ? [address] ??[place], [place] [address] ? NAME: LYRIC PERALTA ? : ??65 ??MR#: [id number] ? LOC: ?? CO ? AGE: 46Y ?? Pt type: CO ?Exam Date: 09/27/11 1122 ? SEX: F ?? AN#:[id number] ?Ck-in#: [id number] ? HILDA,PIPPA W ? [address] ? [address] ? [place] ?[place] ?[address] ? Chk-in # ?? Order ?Exam ?[id number] ?? 0001 ? [id number] ??BC MAMM SCREEN BILAT DIG PNL ? Ord Diag: RTN MMG ? BILATERAL SCREENING DIGITAL MAMMOGRAM: ? HISTORY: Routine screening. ? IMAGE COMPARISON: ??09/28/2010, 03/24/2010, 08/20/2009, 07/23/2009, 01/23/2008 TECHNIQUE: Routine bilateral CC and MLO digital mammographic images were obtained and supplemented with bilateral laterally exaggerated CC views. ?? FINDINGS: ??The breast tissue is heterogeneously dense. ??This may lower the sensitivity of mammography. The fibroglandular pattern appears unchanged. There are areas of obscured nodularity bilaterally which are stable. There is also bilateral scattered punctate and amorphous calcifications which appear unchanged. There is no mass, worrisome microcalcifications, or architectural distortion to suggest development of malignancy. ?? IMPRESSION: No findings suspicious for malignancy. ? ACR BI-RADS CATEGORY: ??II, BENIGN ?? RECOMMENDATION: Yearly mammogram, yearly physical exam, and monthly self breast exam. ?? iCAD was used. ?? The standard false negative rate of mammography is between 10 and 25%. Complex patterns or increased breast density will markedly elevate the ? FINAL ?CONTINUED ?Page ??1 ? RADIOLOGY REPORT ?[facility] ? [address] ??[place], [place] [address] ? NAME: LYRIC PERALTA ? : ??[birth year] ??MR#: [id number] ? LOC: ?? CO ? AGE: 46Y ?? Pt type: CO ?Exam Date: 09/27/11 1122 ? SEX: F ?? AN#:[id number] ?Ck-in#: [id number] ? HILDA,PIPPA W ? [address] ? [address] ? [place] ?[place] ?[address] ? Checkin-Exam Code Summary ? [phone] false negative rate of mammography. ?? A letter, in lay terminology, with the results of this exam will be mailed to the patient. ? If there is a palpable area of concern, biopsy should be considered regardless of imaging findings. ?/READ BY/ ALVAREZ LINN ?/Released By/ ALVAREZ LINN ?Released By Date/Time: ??09/27/111611 ?Room Attendant: ??DME ? FINAL ? Page ??2 ? RADIOLOGY REPORT us See Report Interface IMG MAMMOGRAPHY ORDERABLES Final Result documented in this encounter Visit Diagnoses Not on filedocumented in this encounter
--- OUTSIDE RECORDS SUMMARY | 2024-08-20 08:49 | XMS_ITS | Encounter Summary ---
[facility] Address [address] [place] [address] Care Team Providers Care Feed Research Aide Name Role Phone Unavailable Primary Care Provider Unavailabl e Encounter Details Date Type Department Care Team (Late st Contact Info) Description 03/13/2015 11:27 AM EDT - 03/13/2015 11:59 PM EDT Hospital Encounter [facility]3] CONVERSION DEPARTMENT [address] [place], [place] [address] [place] [address] [place] [address] [place] [address] Social History Tobacco Use Types Packs/Day Years [...] Procedure Name Priority Date/Time Associated Diagnosis Comments CONVERTED (HISTORICAL) SURGICAL PATHOLOGY Routine 03/13/2015 11:27 AM EDT documented in this encounter Results * Converted Surgical Pathology (03/13/2015 11:27 AM EDT) 03/13/2015 11:2 7 AM EDT Narrative [facility] - 03/17/2015 9:58 AM EDT [facility] [address] [place] [address] SURGICAL PATHOLOGY REPORT Patient Name: LYRIC VALENCIA MR#: [id number] : 1965 Gender: F Ordering Physician: MONTRELL GRUBER Copy To: [facility] Endoscopy Location: [address] [place] [address] Collected: 03/13/2015 Received: 03/13/2015 Reported: 03/17/2015 Clinical Diagnosis and History The working history is (1) to detect H. pylori. Final Diagnosis 1. GASTRIC BIOPSIES: ? Minimal reactive gastritis. CFV stain negative for Helicobacter. 2. TRANSVERSE COLON POLYPS: ? Hyperplastic polyps. MHB/rw ? Amendments: Electronically Signed Out By LEONA RAPHAEL Specimen(s) Received: 1: Gastric Biopsy 2: Colon, polyp Gross Description Specimen 1 received in formalin labeled gastric biopsies x2 are two reynolds soft tissue fragments aggregating 0.4 x 0.4 x 0.2 cm submitted in toto in cassette 1. Specimen 2 received in formalin labeled 1 cm transverse colon polyp and 3 mm transverse colon polyp are multiple pieces of red/pink soft tissue aggregating 1.2 x 1.2 x 0.4 cm submitted in toto in cassette 2. HBM/sm Microscopic Description The gastric biopsies show minimal reactive and regenerative changes. No significant inflammatory change or deep ulceration is seen and with adequate controls, CFV stain shows no Helicobacter-like organisms. Sections of specimen 2 show mucosal hyperplasia with serrations of glands. MHB/rw Procedures/Addenda us See Report Interface PATHOLOGY/CYTOLOGY [place] [address], documented in this encounter Visit Diagnoses Not on filedocumented in this encounter
--- OUTSIDE RECORDS SUMMARY | 2024-08-20 08:49 | XMS_ITS | Encounter Summary ---
[facility] Address [address] [place] [address] Care Team Providers Care Personnel Consultant Name Role Phone Provider, No Known Primary Care Provider Unavail able Encounter Details Date Type Department Care Team (Late st Contact Info) Description 11/03/2015 1:32 PM EST - 11/03/2015 11:59 PM EST Hospital Encounter [facility] [address] [facility] [address] [place] [address] Guanakito Stroud MD [address] [facility] [address] [place] [address] Discharge Disposition: Home or Self Care Social [...] Priority Date/Time Associated Diagnosis Comments MAMMO DIAGNOSTIC RIGHT W CAD Routine 11/03/2015 1:24 PM EST documented in this encounter Results * Mammo diagnostic right w CAD (11/03/2015 1:24 PM EST) Anatomical Region Laterality Modality Breast Right Mammography 11/03/2015 1:24 PM EST Narrative 11/03/2015 2:50 PM EST RIGHT DIAGNOSTIC MAMMOGRAM WITH TOMOSYNTHESIS CLINICAL INDICATION- ??50-year-old patient recalled from recent screening exam for further evaluation of the right breast. TECHNIQUE- Right MLO and CC focal compression views, a right ML view, and right ML focal compression view were obtained all using both 2-D and 3-D imaging. ?? COMPARISON- 09/29/2015, 11/05/2014, 09/30/2014, 10/01/2013, 10/30/2012, 10/02/2012, 09/27/2011, 09/28/2010 FINDINGS- The asymmetry in the right upper outer quadrant concerning for an area of distortion improved in appearance with additional mammographic imaging. No convincing distortion is noted on the additional views obtained today. ?? IMPRESSION- Benign right mammographic findings. BIRADS CATEGORY- ??II, BENIGN RECOMMENDATION- ??Recommend the patient resume routine annual screening mammography. CAD was utilized. The standard false-negative rate of mammography is between 10% and 25%. Complex patterns or increased breast density will markedly elevate the false-negative rate of mammography. ?? A letter, in lay terminology, with the results of this exam was given to the patient at the time of the visit. ? Reading Radiologist- LIANET ZEPEDA ? Releasing RadiologistSommer ZEPEDA ? Released Date Time- 11/03/15 1450 ? Sock Knitting Machine Operator- F.M. Procedure Note MastersLianet MD - 11/03/2015 RIGHT DIAGNOSTIC MAMMOGRAM WITH TOMOSYNTHESIS CLINICAL INDICATION- 50-year-old patient recalled from recent screening exam for further evaluation of the right breast. TECHNIQUE- Right MLO and CC focal compression views, a right ML view, and right ML focal compression view were obtained all using both 2-D and 3-D imaging. COMPARISON- 09/29/2015, 11/05/2014, 09/30/2014, 10/01/2013, 10/30/2012, 10/02/2012, 09/27/2011, 09/28/2010 FINDINGS- The asymmetry in the right upper outer quadrant concerning for an area of distortion improved in appearance with additional mammographic imaging. No convincing distortion is noted on the additional views obtained today. IMPRESSION- Benign right mammographic findings. BIRADS CATEGORY- II, BENIGN RECOMMENDATION- Recommend the patient resume routine annual screening mammography. CAD was utilized. The standard false-negative rate of mammography is between 10% and 25%. Complex patterns or increased breast density will markedly elevate the false-negative rate of mammography. A letter, in lay terminology, with the results of this exam was given to the patient at the time of the visit. Reading Radiologist- LIANET MASTERS Releasing Radiologist- LIANET MASTERS Released Date Time- 11/03/15 1450 Sock Knitting Machine Operator- Yonathan us Guanakito Stroud MD [facility] MAMMO[facility]APHY ORDERABLES Final Result documented in this encounter Visit Diagnoses Not on filedocumented in this encounter Care Teams Personnel Consultant Relationship Specialty Start Date End Date Provider, [place] [address] PCP - General 09/26/15 09/15/16 documented as of this encounter
--- OUTSIDE RECORDS SUMMARY | 2024-08-20 08:49 | XMS_ITS | Encounter Summary ---
Author Organization [facility] ystem Address [address] [place] [address] Care Team Providers Care Jigger Crown Pouncing Machine Operator Name Role Phone Unavailable Primary Care Provider Unavailabl e Encounter Details Date Type Department Care Team (Late st Contact Info) Description 08/20/2009 Historical Mammograp hy Encounter [facility]ISTOR[facility] CONV [address] [place] [address] Interface, See Report Social History [...] Associated Diagnosis Comments MAMMO HISTORICAL RESULT Routine 08/20/2009 1:51 PM EST documented in this encounter Results * MAMMO HISTORICAL RESULT (08/20/2009 1:51 PM EST) Anatomical Region Laterality Modality Breast Mammography 08/20/2009 1:51 PM EST Narrative 08/22/2009 11:41 AM EST ?[facility] ? [address] ??[place], [place] [address] ? NAME: LYRIC VALENCIA ? : ??[birth year] ??MR#: [id number] ? LOC: ?? DIS ? AGE: 44Y ?? Pt type: CO ?Exam Date: 08/20/09 1353 ? SEX: F ?? AN#:[id number] ?Ck-in#: [id number] ? HILDA,PIPPA W ? [address] ? [address] ? [place] ?[place] ?[address] ? Chk-in # ?? Order ?Exam ?[id number] ?? 0001 ? [id number] ??BC MAMM DIAG BILAT DIG PNL ? Ord Diag: ABN MMG ? BILATERAL DIAGNOSTIC DIGITAL MAMMOGRAM: ?? CLINICAL INDICATION: ??44 year old patient returns for additional mammographic imaging of both breasts recommended from recent screening exam dated 07/23/2009. ?? TECHNIQUE: Bilateral ML views, right CC and MLO focal compression views, right CC and ML magnification views. ?? COMPARISON: 07/23/2009, 01/23/2008, 03/07/2006. ? FINDINGS: ? LEFT BREAST: ML imaging of the left breast demonstrates several oval isodense masses as was noted on the recent screening exam. The largest mass is located in the superior aspect of the left breast posteriorly and measures approximately 2.2 cm in size. Also redemonstrated are some probable milk of calcium type calcifications in the anterior aspect of the left breast. No spiculated mass or architectural distortion is seen. The left breast will be further evaluated with ultrasound. ?? RIGHT BREAST: Additional mammographic imaging of the right breast also demonstrates several oval obscured masses. ??The largest is located centrally on the MLO view and measures 2.3 cm in size. The questionable areas of increased density present in the right subareolar region on the MLO view as well as the right lateral breast do improve in appearance with focal compression and ML imaging. On the full ML view a questionable area of architectural distortion was noted inferiorly but ? FINAL ?CONTINUED ?Page ??1 ? RADIOLOGY REPORT ?[facility] ? [address] ??[place], [place] [address] ? NAME: ANNIEAHMETLYRIC ? : ??[birth year] ??MR#: [id number] ? LOC: ?? DIS ? AGE: 44Y ?? Pt type: CO ?Exam Date: 08/20/09 1353 ? SEX: F ?? AN#:[id number] ?Ck-in#: [id number] ? HILDA,PIPPA W ? [address] ? [address] ? [place] ?[place] ?[address] ? Checkin-Exam Code Summary ? [id number] this essentially resolved with focal compression. ?? Magnification imaging was performed of the right upper outer quadrant. This reveals scattered amorphous and milk of calcium type calcifications as well as some more rounded calcifications. The calcifications have increased from the prior exams but they have a benign morphology. Would recommend a six-month followup of the calcifications. Also, the patient will undergo a right breast ultrasound today. ?? IMPRESSION: ?? 1. Bilateral oval obscured masses as described above. Ultrasound evaluation of both breasts will be performed today. No suspicious mammographic mass is identified. ?? 2. Magnification imaging of calcifications in the upper outer quadrant of the right breast reveal scattered probably benign calcifications. A majority of the calcifications appear to represent milk of calcium based on ML magnification imaging. Would recommend a six month mammographic followup of the calcifications. ?? BI-RADS CATEGORY 0, INCOMPLETE. ??Needs additional imaging evaluation. Please accept this as sufficient as an order for additional imaging. ? Please accept this as sufficient order for the ultrasound evaluation. ?? Needs ultrasound evaluation lateral breast. ?? RECOMMENDATION: ??Please see separately dictated report for the ultrasound findings and final patient assessment. ? FINAL ?CONTINUED ?Page ??2 ? RADIOLOGY REPORT ?[facility] ? [address] ??[place] [address] ? NAME: ANNIELYRIC ? : ??[birth year] ??MR#: [id number] ? LOC: ?? DIS ? AGE: 44Y ?? Pt type: CO ?Exam Date: 08/20/091352 ? SEX: F ?? AN#:[id number] ?Ck-in#: [id number] ? [facility] ? [address] ? [address] ? [place] ?[place] ?[address] ? Checkin-Exam Code Summary ? [phone] ?? iCAD was utilized. ?? The standard false-negative rate of mammography is between 10 and 25%. Complex patterns or increased breast density will markedly elevate the false-negative rate of mammography. ? The results, in lay terminology, were given to the patient at the conclusion of her exam. ?/READ BY/ ALVAREZ SCHULTZ ?/Released By/ ALVAREZ SCHULTZ ?Released By Date/Time: ??08/22/091137 ?Tankage Supervisor: ??DME ? FINAL ? Page ??3 ? RADIOLOGY REPORT us See Report Interface IMG MAMMOGRAPHY ORDERABLES Final Result documented in this encounter Visit Diagnoses Not on filedocumented in this encounter
--- OUTSIDE RECORDS SUMMARY | 2024-08-20 08:49 | XMS_ITS | Encounter Summary ---
Author Organization [facility] Address [address] [place] [address] Care Team Providers Care Machinist Brake Name Role Phone Toni Knight MD Primary Care Provider Reason for Visit * Reason Onset Date Comments Med Refill 07/08/2020 Encounter Details Date Type Department Care Team (Late st Contact Info) Description 07/08/2020 Refill [facility] GASTROENTEROLOGY [address] [address] Charles Lai MD [address] [address] Screening for colon cancer (Primary Dx); Nausea and vomiting, intractability of vomiting not specified, unspecified vomiting type Social History Tobacco Use Types Packs/Day Years Used Date Smoking Tobacco: Former Cigarettes 2014 Smokeless Tobacco: Never Alcohol Use Standard Drinks/Week Comments Yes 0 (1 standard drink = 0.6 oz pur e alcohol) occasional/no abuse [facility] of Occupat ional Health - Occupational Stress [...] as of this encounter Visit Diagnoses Diagnosis Screening for colon cancer- Primary Special screening for malignant neoplasms, colon Nausea and vomiting, intractability of vomiting not specified, unspecified vomiting type documented in this encounter Care Teams Machinist Brake Relationship Specialty Start Date End Date Toni Knight MD [facility] [place] [facility] [address] [facility] [address] [place] [address] PCP - General Family Medicine 09/16/16 documented as of this encounter
--- OUTSIDE RECORDS SUMMARY | 2024-08-20 08:49 | XMS_ITS | Encounter Summary ---
Author Organization [facility] Address [address] [place] [address] Care Team Providers Care Manager Electronic Name Role Phone Provider, No Known Primary Care Provider Unavail able Encounter Details Date Type Department Care Team (Late st Contact Info) Description 09/29/2015 1:56 PM EST - 09/29/2015 11:59 PM EST Hospital Encounter [facility] DEPARTMENT [address] [phone] Guanakito Stroud MD 1700 [facility] [address] [id number] Discharge Disposition: Home or Self Care Social [...] Priority Date/Time Associated Diagnosis Comments MAMMO SCREENING BILATERAL W CAD Routine 09/29/2015 1:57 PM EST documented in this encounter Results * Mammo screening bilateral (09/29/2015 1:57 PM EST) Anatomical Region Laterality Modality Breast Bilateral Mammography 09/29/2015 1:57 PM EST Narrative 10/06/2015 6:25 PM EST BILATERAL SCREENING MAMMOGRAM WITH TOMOSYNTHESIS- HISTORY- 50-year-old patient with no personal history of breast cancer and no current breast complaints. Her mother was diagnosed with breast cancer in her late 60s. TECHNIQUE- ??Low dose full field digital breast tomosynthesis imaging was performed with 2D and 3D acquisitions. COMPARISON- 11/05/2014, 09/30/2014, 10/01/2013, 10/30/2012, 10/02/2012, and 09/27/2011. FINDINGS- There are scattered areas of fibroglandular density. There is a possible area of architectural distortion in the right upper outer quadrant. Additional mammographic imaging is recommended. The remaining bilateral fibroglandular pattern and bilateral nodularity appears stable. IMPRESSION- Possible area of architectural distortion in the right upper outer quadrant. RECOMMENDATION- 2-D/3-D right CC and MLO focal compression views and an anterior 2-D/3-D right ML view with the nipple in profile. BI-RADS CATEGORY 0, INCOMPLETE- ??NEED ADDITIONAL IMAGING EVALUATION. ?? She will be contacted by our office to schedule an appointment for the additional studies. ?? CAD was utilized. The standard false-negative rate of mammography is between 10% and 25%. Complex patterns or increased breast density will markedly elevate the false-negative rate of mammography. ?? A letter, in lay terminology, with the results of this exam will be mailed to the patient. Physician Order Diagnostic Mammogram and/or Ultrasound. Diagnosis- Abnormal Screening Mammogram ? Reading Radiologist- JENNIFER PEREZ ? Releasing Radiologist- JENNIFER PEREZ ? Released Date Time- 10/06/15 1825 ? Arts Administrator- Juan Carlos Procedure Note Jennifer Alvarez MD - 10/06/2015 BILATERAL SCREENING MAMMOGRAM WITH TOMOSYNTHESIS- HISTORY- 50-year-old patient with no personal history of breast cancer and no current breast complaints. Her mother was diagnosed with breast cancer in her late 60s. TECHNIQUE- Low dose full field digital breast tomosynthesis imaging was performed with 2D and 3D acquisitions. COMPARISON- 11/05/2014, 09/30/2014, 10/01/2013, 10/30/2012, 10/02/2012, and 09/27/2011. FINDINGS- There are scattered areas of fibroglandular density. There is a possible area of architectural distortion in the right upper outer quadrant. Additional mammographic imaging is recommended. The remaining bilateral fibroglandular pattern and bilateral nodularity appears stable. IMPRESSION- Possible area of architectural distortion in the right upper outer quadrant. RECOMMENDATION- 2-D/3-D right CC and MLO focal compression views and an anterior 2-D/3-D right ML view with the nipple in profile. BI-RADS CATEGORY 0, INCOMPLETE- NEED ADDITIONAL IMAGING EVALUATION. She will be contacted by our office to schedule an appointment for the additional studies. CAD was utilized. The standard false-negative rate of mammography is between 10% and 25%. Complex patterns or increased breast density will markedly elevate the false-negative rate of mammography. A letter, in lay terminology, with the results of this exam will be mailed to the patient. Physician Order Diagnostic Mammogram and/or Ultrasound. Diagnosis- Abnormal Screening Mammogram Reading Radiologist- JENNIFER PEREZ Releasing Radiologist- JENNIFER PEREZ Released Date Time- 10/06/15 1825 Arts Administrator- Juan Carlos Guanakito Stroud MD [facility] [place] ORDER[place] Final Result documented in this encounter Visit Diagnoses Not on filedocumented in this encounter Care Teams Manager Electronic Relationship Specialty Start Date End Date Provider, [place] [address] PCP - General 09/26/15 09/15/16 documented as of this encounter
--- OUTSIDE RECORDS SUMMARY | 2024-08-20 08:49 | XMS_ITS | Encounter Summary ---
Author Organization [facility] Address [address] [place] [address] Care Team Providers Care Bereavement Counselor Name Role Phone Toni Knight MD Primary Care Provider Reason for Visit * Reason Comments Gynecologic Exam Encounter Details Date Type Department Care Team (Late st Contact Info) Description 07/08/2020 4:00 PM EDT Office Visit [facility] OBGYN [address] [place] [address] Guanakito Stroud MD 1700 [facility] [address] [place] [address] Annual physical exam (Primary Dx); Menopausal symptoms; Atypical squamous cells of undetermined significance on cytologic smear of cervix (ASC-US) Social History Tobacco Use Types Packs/Day Years Used Date Smoking Tobacco: Former Cigarettes 2014 Smokeless Tobacco: Never Alcohol Use Standard Drinks/Week Comments Yes 0 (1 standard drink = 0.6 oz pur e alcohol) occasional/no abuse [facility] [place] of Occupat ional Health - Occupational Stress [...] Sign Reading Time Taken Comments Blood Pressure 120/70 07/08/2020 4:58 PM EDT Pulse - - Temperature 36.5 ??C (97.7 ??F) 07/08/2020 4:58 PM ED T Respiratory Rate - - Oxygen Saturation - - Inhaled Oxygen Concentration - - Weight 106 kg (234 lb) 07/08/2020 4:58 PM EDT Height 167.6 cm (5' 6 ) 07/08/2020 4:58 PM EDT Body Mass Index 37.77 07/08/2020 4:58 PM EDT documented in this encounter Progress Notes * Guanakito Stroud MD - 07/08/2020 4:00 PM EDT Images from the original note were not included. GLOVE SEWER Annual Exam CC - Here for annual exam. Subjective HPI Zaida Peralta is a 55 y.o. female, , who presents for annual well woman exam. She ispostmenopausal. The patient had an annual exam one year ago and has had no changes to her medical history. Her last pap smear was 1 year ago and negative. She had a mammogram in 10/2019 and was calledback for additional views on the left that were negative. She is scheduled for her routine colonosco py on Tuesday07/14/2020. Additional CHISELER HEAD History Current contraception: post menopausal Last Pap :07/17/2019 negaitve Last Completed Pap Smear Status Date PAP SMEAR No completions recorded History of abnormal Pap smear: no Family history of uterine, colon, breast, or ovarian cancer: no Last mammogram: 10/2019 negative Last Completed Mammogram Status Date MAMMOGRAM Done 11/20/2019 MAMMO SCREENING DIGITAL TOMOSYNTHESIS BILATERAL W CAD Patient has more history with this topic... Last colonoscopy: 07/14/2020 Last Completed Colonoscopy Status Date COLONOSCOPY No completions recorded Exercises Regularly: no Feelings of Anxiety or Depression: no Tobacco Usage?: no Health Maintenance Topic Date Due ??? Annual Gynecologic Pelvic and Breast Exam 1965 ??? COLONOSCOPY 1965 ??? ANNUAL PHYSICAL 1968 ??? TDAP/TD VACCINES (1 - Tdap) 1984 ??? ZOSTER VACCINE (1 of 2) 2015 ??? HEPATITIS C SCREENING 03/05/2020 ??? PAP SMEAR 03/05/2020 ??? INFLUENZA VACCINE 04/12/2020 ??? LIPID PANEL 06/27/2020 ??? MAMMOGRAM 11/19/2021 ??? Pneumococcal Vaccine 0-64 Aged Out Current Outpatient Medications Medication Sig Dispense Refill ??? melatonin 1 MG tablet Take by mouth As Needed for Sleep. ??? pantoprazole (PROTONIX) 40 MG EC tablet Take 40 mg by mouth Daily. ??? Probiotic Product (ALIGN PO) Take by mouth. ??? wgjqew-zbsmjattq-erwlvgcln sulfates (Suprep Bowel Prep Kit) 17.5-3.13-1.6 GM/177ML solution oral solution Take 1 bottle by mouth Take As Directed. Follow instructions that were mailed to your home. If you didn't receive these call [phone]. 2 bottle 0 ??? ondansetron (Zofran) 4 MG tablet Take 1 tablet by mouth Every 6 (Six) Hours As Needed (FOR COLONOSCOPY PREP). 6 tablet 0 No current facility-administered medications for this visit. The additional following portions of the patient's history were reviewed and updated as appropriate: allergies, current medications, past family history, past medical history, past social history, past surgical history and problem list. Review of Systems All other systems reviewed and are negative. I have reviewed and agree with the HPI, ROS, and historical information as entered above. Guanakito Stroud MD Objective BP 120/70 Temp 97.7 ??F (36.5 ??C) Ht 167.6 cm (66 ) Wt 106 kg (234 lb) BMI 37.77 kg/m?? PE Breast: Without masses, nontender, no skin changes or retractions Axilla normal, no lymphadenopathy Heart-regular rate no murmurs rubs or gallops Lungs-clear to auscultation, normal breath sounds bilateral Abd-soft nontender, no hepatosplenomegaly, no guarding or rebound, no masses Pelvic exam- External genitalia normal introitus, no lesions of inflammation or bleeding Vagina normal mucosa no bleeding inflammation or discharge, no rectocele Bladder normal position, nontender, no cystocele Cervix without lesions no bleeding discharge or inflammation Bimanual bimanual normal, adnexa clear, no sign of uterine or ovarian enlargement RV digital rectal exam deferred, patient getting a colonoscopy next week, no external hemorrhoids or lesions seen Assessment/Plan Assessment Problem List Items Addressed This Visit Genitourinary Menopausal symptoms Atypical squamous cells of undetermined significance on cytologic smear of cervix (ASC-US) Other Visit Diagnoses Annual physical exam - Primary Relevant Orders Pap IG, Rfx HPV ASCU 1. GLOVE SEWER annual well woman exam. 2. Normal postmenopausal exam, history of abnormal Paps and surgery, keep doing yearly Paps for now Plan 1. Reviewed HPV guidelines and she would like to continue yearly paps regardless. 2. Colonoscopy recommended. 3. Anticipatory menopausal guidance given. 3 lifestyles including diet and exercise reviewed Guanakito Stroud MD 07/08/2020 documented in this encounter Plan of Treatment Not on file documented as of this encounter Results * Pap IG, Rfx HPV ASCU (07/15/2020 12:22 PM EST) ThinPrep Vial Specimen from cervix or vagina / Unknown us Guanakito Stroud MD PATHOLOGY/CYTOLOGY ORDERAB LES Final Result [facility]
[address] [place] [id number], [place] [phone] documented in this encounter Visit Diagnoses Diagnosis Annual physical exam- Primary Routine general medical examination at a health care facility Menopausal symptoms Symptomatic menopausal or female climacteric states Atypical squamous cells of undetermined significance on cytologic smear of cervix (ASC-US) documented in this encounter Care Teams Bereavement Counselor Relationship Specialty Start Date End Date Toni Knight MD [facility] [address] [facility] 2 [facility] [place] [address] PCP - General Family Medicine 09/16/16 documented as of this encounter
--- OUTSIDE RECORDS SUMMARY | 2024-08-20 08:49 | XMS_ITS | Encounter Summary ---
Author Organization [facility] Address [address] [place] [address] Care Team Providers Care Loss Prevention Research Engineer Name Role Phone Toni Knight MD Primary Care Provider Reason for Referral * Diagnostic Imaging (Routine) - Closed Specialty Diagnoses / Procedures Referred By Contac t Referred To Contact Radiology Diagnoses Visit for screening mammogram Procedures Mammo Screening Digital Tomosynthesis Bilateral With CAD [facility]anakito Stroud [facility] [place] [address] Phone: tel: fax: [facility] [address] [place] [address] Phone: tel: Referral ID Status Reason Start Date Expiration Date Visits Re quested Visits Authorized [id number] Closed 09/15/2017 09/15/2018 1 1 Reason for Visit * Diagnostic Imaging (Routine) - Closed Specialty Diagnoses / Procedures Referred By Contac t Referred To Contact Radiology Diagnoses Visit for screening mammogram Procedures Mammo Screening Digital Tomosynthesis Bilateral With CAD [facility]anakito Stroud [facility] [place] [address] Phone: tel: fax: [facility] [address] [place] [address] Phone: tel: Referral ID Status Reason Start Date Expiration Date Visits Re quested Visits Authorized [id number] Closed 09/15/2017 09/15/2018 1 1 Encounter Details Date Type Department Care Team (Late st Contact Info) Description 11/02/2017 2:30 PM EST - 11/02/2017 11:59 PM EST Hospital Encounter [facility] [address] [place] [address] Guanakito Stroud MD 1700 [facility] [address] [place] [address] Visit for screening mammogram Discharge Disposition: Home [...] SCREENING DIGITAL TOMOSYNTHESIS BILATERAL W CAD Routine 11/02/2017 3:03 PM EST Visit for screening mammogram documented in this encounter Results * Mammo Screening Digital Tomosynthesis Bilateral With CAD (11/02/2017 3:03 PM EST) Anatomical Region Laterality Modality Breast N/A Mammography 11/05/2017 2:50 PM EST Impressions 11/05/2017 2:51 PM EST Benign screening mammogram. ??No findings suspicious for [...] will be mailed to the patient. ?? If there is a palpable area of concern, biopsy should be considered regardless of imaging findings. ?? This report was finalized on 11/05/2017 2:[address] Ilda Bryant MD. Narrative 11/05/2017 2:51 PM EST ROUTINE DIGITAL SCREENING MAMMOGRAM WITH TOMOSYNTHESIS HISTORY: Routine screening. ? IMAGE COMPARISON: ??06/30/2017, 09/27/2016, 09/29/2015. TECHNIQUE: Low dose full field digital breast tomosynthesis examination was performed ? with 2D and 3D acquisitions. FINDINGS: There are scattered areas of fibroglandular density. The fibroglandular pattern is stable. There are stable bilateral obscured nodularity. There are also stable bilateral benign-appearing calcifications. There is no mass, worrisome microcalcifications, or architectural distortion to suggest development of malignancy. ? us Guanakito Stroud MD IMG MAMMOGRAPHY ORDERABLES Final Result documented in this encounter Visit Diagnoses Diagnosis Visit for screening mammogram documented in this encounter Care Teams Loss Prevention Research Engineer Relationship Specialty Start Date End Date Toni Knight MD [facility] [address] [facility] [address] [place] [address] PCP - General Family Medicine 09/16/16 documented as of this encounter
--- OUTSIDE RECORDS SUMMARY | 2024-08-20 08:49 | XMS_ITS | Encounter Summary ---
Author Organization [facility] Address [address] [place] [address] Care Team Providers Care Summer Child Caregiver Name Role Phone Unavailable Primary Care Provider Unavailabl e Encounter Details Date Type Department Care Team (Late st Contact Info) Description 09/28/2010 Historical Mammograp hy Encounter [facility] [address] [place] [address] Interface, See Report Social History [...] Associated Diagnosis Comments MAMMO HISTORICAL RESULT Routine 09/28/2010 2:16 PM EST documented in this encounter Results * MAMMO HISTORICAL RESULT (09/28/2010 2:16 PM EST) Anatomical Region Laterality Modality Breast Mammography 09/28/2010 2:16 PM EST Narrative 09/28/2010 4:10 PM EST ?[facility] ? [address] ??[place], [place] [address] ? NAME: LYNNELYRIC BURGOS ? : ??65 ??MR#: [id number] ? LOC: ?? CO ? AGE: 45Y ?? Pt type: CO ?Exam Date: 09/28/10 1417 ? SEX: F ?? AN#:[id number] ?Ck-in#: [id number] ? HILDA,PIPPA W ? [address] ? [address] ? [place] ?[place] ?[address] ? Chk-in # ?? Order ?Exam ?[id number] ?? 0001 ? [address] ??BC MAMM SCREEN BILAT DIG PNL ? Ord Diag: SCREENING ? BILATERAL SCREENING DIGITAL MAMMOGRAM: ? HISTORY: Routine screening. ? IMAGE COMPARISON: ??03/24/2010, 08/20/2009, 07/23/2009, 01/23/2008. ?? TECHNIQUE: Routine digital bilateral MLO and CC views were obtained. ??In addition, an exaggerated lateral right CC view was performed. ?? FINDINGS: ??The breast tissue is heterogeneously dense. ??This may lower the sensitivity of mammography. There are fluctuating bilateral oval isodense masses with partially obscured borders. This is consistent with fluctuating fibrocystic changes. There are stable bilateral scattered faint punctate and amorphous calcifications. There is no mass, worrisome microcalcifications, or architectural distortion to suggest development of malignancy. ?? IMPRESSION: No findings suspicious for malignancy. ?? Bilateral fibrocystic changes as described above. ?? ACR BI-RADS CATEGORY: ??II, BENIGN ?? RECOMMENDATION: Yearly mammogram, yearly physical exam, and monthly self breast exam. ?? iCAD was used. ? FINAL ?CONTINUED ?Page ??1 ? RADIOLOGY REPORT ?[facility] ? [address] ??[place], [place] [address] ? NAME: LYRIC VALENCIA ? : ??65 ??MR#: [id number] ? LOC: ?? CO ? AGE: 45Y ?? Pt type: CO ?Exam Date: 09/28/101416 ? SEX: F ?? AN#:[id number] ?Ck-in#: [id number] ? HILDA,PIPPA W ? [address] ? [address] ? [place] ?[place] ?[address] ? Checkin-Exam Code Summary ? [id number] The standard false negative rate of mammography is between 10 and 25%. Complex patterns or increased breast density will markedly elevate the false negative rate of mammography. ?? A letter, in lay terminology, with the results of this exam will be mailed to the patient. ? If there is a palpable area of concern, biopsy should be considered regardless of imaging findings. ?/READ BY/ ALVAREZ LINN ?/Released By/ ALVAREZ LINN ?Released By Date/Time: ??09/28/10 1604 ?[employer] Exchange Administrator: ??DME ? FINAL ? Page ??2 ? RADIOLOGY REPORT us See Report Interface IMG MAMMOGRAPHY ORDERABLES Final Result documented in this encounter Visit Diagnoses Not on filedocumented in this encounter
--- OUTSIDE RECORDS SUMMARY | 2024-08-20 08:49 | XMS_ITS | Encounter Summary ---
Author Organization [facility] Address [address] [place] [address] Care Team Providers Care Svp Operations Name Role Phone Toni Knight MD Primary Care Provider Reason for Referral * (Routine) - Closed Specialty Diagnoses / Procedures Referred By Og castorena Referred To Contact Radiology Diagnoses Visit for screening mammogram Procedures Mammo Screening Digital Tomosynthesis Bilateral With CAD Guanakito Stroud MD [facility] [place] [address] Phone: tel: fax: Referral ID Status Reason Start Date Expiration Date Visits Re quested Visits Authorized [id number] Closed 09/16/2016 09/16/2017 1 1 Reason for Visit * (Routine) - Closed Specialty Diagnoses / Procedures Referred By Og castorena Referred To Contact Radiology Diagnoses Visit for screening mammogram Procedures Mammo Screening Digital Tomosynthesis Bilateral With CAD Guanakito Stroud MD [facility] [place] [address] Phone: tel: fax: Referral ID Status Reason Start Date Expiration Date Visits Re quested Visits Authorized [id number] Closed 09/16/2016 09/16/2017 1 1 Encounter Details Date Type Department Care Team (Late st Contact Info) Description 09/27/2016 10:00 AM EST - 09/27/2016 11:59 PM EST Hospital Encounter [facility] [address] [place] [address] Guanakito Stroud MD 1700 [facility] [address] [place] [address] Visit for screening mammogram Discharge Disposition: Home [...] SCREENING DIGITAL TOMOSYNTHESIS BILATERAL W CAD Routine 09/27/2016 10:46 AM EST Visit for screening mammogram documented in this encounter Results * Mammo Screening Digital Tomosynthesis Bilateral With CAD (09/27/2016 10:46 AM EST) Anatomical Region Laterality Modality Breast N/A Mammography 09/27/2016 3:07 PM EST Impressions 09/27/2016 5:36 PM EST Benign screening mammogram. RECOMMENDATION: ?? 1. Continue annual screening mammography. 2. The patient is a candidate for annual intermediate risk screening breast MRI imaging based on the Jennifer risk assessment model performed at the time of screening mammography. BI-RADS CATEGORY II, BENIGN. CAD was utilized. The standard false-negative rate of mammography is between 10% and 25%. Complex patterns or increased breast density will markedly elevate the false-negative rate of mammography. ?? A letter, in lay terminology, with the results of this exam will be mailed to the patient. This report was finalized on 09/27/2016 5:[address] Jennifer Alvarez MD. Narrative 09/27/2016 5:36 PM EST BILATERAL SCREENING MAMMOGRAM WITH TOMOSYNTHESIS-09/27/2016: HISTORY: 51-year-old patient with no personal history of breast cancer and no current breast complaints. Her mother was diagnosed with breast cancer in her 60s. The Jennifer risk assessment model was performed at the time of screening mammography and revealed a 15.2% lifetime risk for developing breast cancer. The patient is considered intermediate risk. The patient has lost 10 pounds since her last mammogram. TECHNIQUE: ??Low dose full field digital breast tomosynthesis imaging was performed with 2D and 3D acquisitions. COMPARISON: ??11/03/2015, 09/29/2015, 11/05/2014, 09/30/2014, 10/01/2013, 10/30/2012, 10/02/2012, and 09/27/2011. FINDINGS: ??There are scattered areas of fibroglandular density. ?? The bilateral fibroglandular pattern and bilateral nodularity are stable. Bilateral calcifications are also stable. No new or suspicious findings are identified. Guanakito Stroud MD IMG MAMMOGRAPHY ORDERABLES Final Result documented in this encounter Visit Diagnoses Diagnosis Visit for screening mammogram documented in this encounter Care Teams Svp Operations Relationship Specialty Start Date End Date Toni Knight MD [facility] [address] [facility] [address] [place] [address] PCP - General Family Medicine 09/16/16 documented as of this encounter
--- OUTSIDE RECORDS SUMMARY | 2024-08-20 08:49 | XMS_ITS | Encounter Summary ---
Author Organization [facility] Address [address] [place] [address] Care Team Providers Care Supervisor Cytology Name Role Phone Toni Knight MD Primary Care Provider Encounter Details Date Type Department Care Team (Late st Contact Info) Description 07/14/2020 10:00 AM EST Outside Facility Service [facility] GASTROENTEROLOGY [address] [address] Charles Lai MD [address] [address] Social History Tobacco Use Types Packs/Day Years Used Date Smoking Tobacco: Former Cigarettes 2014 Smokeless Tobacco: Never Alcohol Use Standard Drinks/Week Comments Yes 0 (1 standard drink = 0.6 oz pur e alcohol) occasional/no abuse [facility] of Occupat ional [facility] - Occupational Stress Questionnaire Answer [...] Procedure Name Priority Date/Time Associated Diagnosis Comments ENDOSCOPY, INT 07/14/2020 SCANNED - COLONOSCOPY 07/14/2020 documented in this encounter Results * SCANNED - COLONOSCOPY (07/14/2020) Toni Knight MD CHART REVIEW TABS F inal Result * ENDOSCOPY, INT (07/14/2020) Toni Knight MD INTERFACE NEEDS Final Result documented in this encounter Visit Diagnoses Not on filedocumented in this encounter Care Teams Supervisor Cytology Relationship Specialty Start Date End Date Toni Knight MD [address] [facility] [address] [place] [address] PCP - General Family Medicine 09/16/16 documented as of this encounter
--- OUTSIDE RECORDS SUMMARY | 2024-08-20 08:49 | XMS_ITS | Encounter Summary ---
Author Organization [facility] Address [address] [place] [address] Care Team Providers Care District Plant Supervisor Name Role Phone Toni Knight MD Primary Care Provider Reason for Visit * Reason Onset Date Comments mamm results 11/11/2020 Encounter Details Date Type Department Care Team (Late st Contact Info) Description 11/11/2020 Telephone [facility] [address] [address] Guanakito Stroud MD [address] [facility] [address] [place] [address] mamm results Social History Tobacco Use Types Packs/Day Years Used Date Smoking Tobacco: Former Cigarettes 1 - 2014 Smokeless Tobacco: Never Alcohol Use Standard Drinks/Week Comments Yes 0 (1 standard drink = 0.6 oz pur e alcohol) occasional/no abuse [facility] [place] of Occupat ional Health - Occupational Stress [...] encounter Miscellaneous Notes * Telephone Encounter - Jazmyn Hogan RN - 11/11/2020 5:39 PM EST Informed patient of mammogram results; verbalized understanding. * Telephone Encounter - Marlene Stone RegSched Rep - 11/11/2020 12:47 PM EST Pt lvm stating she had her mamm 2 weeks ago at [place], she was wanting the results. She has notheard anything documented in this encounter Plan of Treatment Not on file documented as of this encounter Visit Diagnoses Not on filedocumented in this encounter Care Teams District Plant Supervisor Relationship Specialty Start Date End Date Toni Knight MD [address] [facility] [address] [place] [address] PCP - General Family Medicine 09/16/16 documented as of this encounter
--- OUTSIDE RECORDS SUMMARY | 2024-08-20 08:49 | XMS_ITS | Encounter Summary ---
Author Organization [facility] Address [address] [place] [address] Care Team Providers Care Cloth Mender Name Role Phone Unavailable Primary Care Provider Unavailabl e Encounter Details Date Type Department Care Team (Late st Contact Info) Description 10/30/2012 Historical Mammograp hy Encounter [facility]ISTORICAL CONV [address] [place] [address] Interface, See Report Social History [...] Associated Diagnosis Comments MAMMO HISTORICAL RESULT Routine 10/30/2012 9:28 AM EST documented in this encounter Results * MAMMO HISTORICAL RESULT (10/30/2012 9:28 AM EST) Anatomical Region Laterality Modality Breast Mammography 10/30/2012 9:28 AM EST Narrative 10/30/2012 11:40 AM EST ?[facility] ? [address] ??[place], [place] [address] ? NAME: LYNNELYRIC BURGOS ? : ??65 ??MR#: [id number] ? LOC: ?? CO ? AGE: 47Y ?? Pt type: CO ?Exam Date: 10/30/12928 ? SEX: F ?? AN#:[id number] ?Ck-in#: [id number] ? HILDA,PIPPA W ? [address] ? [address] ? [place] ?[place] ?[address] ? Chk-in # ?? Order ?Exam ?[id number] ?? 0001 ? [id number] ??BC MAMM DIAG BILAT DIG PNL ? Ord Diag: ABN MMG ?[id number] ?? 0002 ? [id number] ??BU US BREAST BILATERAL ? Ord Diag: ABN ? DIAGNOSTIC BILATERAL MAMMOGRAPHY AND TARGETED BILATERAL BREAST ULTRASOUND ?? HISTORY: Recall from screening examination dated 10/02/2012 for asymmetries in both breasts. ?? TECHNIQUE: ??Spot compression views and 90 degree lateral views. ?? FINDINGS: On spot compression views, ??a round mass persists at 12:00 in the left breast. Focus compression effaced the area of concern on the right breast. ?? Targeted bilateral breast ultrasound demonstrates a simple cyst in the left breast at 12:00 measuring 1.2 cm accounting for the round mass on mammography. Ultrasound was performed of the right upper inner quadrant in the area of the previous asymmetry due to the patient's breast tissue. Only small simple cysts are identified. ?? IMPRESSION: BI-RADS CATEGORY II, BENIGN ?? RECOMMENDATION: Annual screening mammography in one year less than indicated sooner. ?? iCAD was utilized. ?? The standard false-negative rate of mammography is between 10 and 25%. ? FINAL ?CONTINUED ?Page ??1 ? RADIOLOGY REPORT ?[facility] ? [address] ??[place], [place] [address] ? NAME: LYRIC VALENCIA ? : ??65 ??MR#: [id number] ? LOC: ?? CO ? AGE: 47Y ?? Pt type: CO ?Exam Date: 02/18/13 0929 ? SEX: F ?? AN#:[id number] ?Ck-in#: [id number] ? HILDA,PIPPA W ? [address] ? [address] ? [place] ?[place] ?[address] ? Checkin-Exam Code Summary ? [id number],[phone] Complex patterns or increased breast density will markedly elevate the false-negative rate of mammography. ? A results letter, in lay terminology, will be given to the patient at the conclusion of the exam. ?/READ BY/ MORAIMA NAILS ?/Released By/ MORAIMA NAILS ?Released By Date/Time: ??10/30/121133 ?License Issuer: ??JBW ? FINAL ? Page ??2 ? RADIOLOGY REPORT us See Report Interface IMG MAMMOGRAPHY ORDERABLES Final Result documented in this encounter Visit Diagnoses Not on filedocumented in this encounter
--- OUTSIDE RECORDS SUMMARY | 2024-08-20 08:49 | XMS_ITS | Encounter Summary ---
Author Organization [facility] Address [address] [place] [address] Care Team Providers Care Travel Journalist Name Role Phone Unavailable Primary Care Provider Unavailabl e Encounter Details Date Type Department Care Team (Late st Contact Info) Description 03/24/2010 Historical Mammograp hy Encounter [facility] [address] [place] [address] Interface, See Report Social History [...] Associated Diagnosis Comments MAMMO HISTORICAL RESULT Routine 03/24/2010 9:02 AM EDT documented in this encounter Results * MAMMO HISTORICAL RESULT (03/24/2010 9:02 AM EDT) Anatomical Region Laterality Modality Breast Mammography 03/24/2010 9:02 AM EDT Narrative 03/24/2010 5:02 PM EDT ?[facility] ? [address] ??[place], [place] [address] ? NAME: LYRIC PERALTA ? : ??65 ??MR#: [id number] ? LOC: ?? CO ? AGE: 44Y ?? Pt type: CO ?Exam Date: 03/24/10902 ? SEX: F ?? AN#:[id number] ?Ck-in#: [id number] ? HILDA,PIPPA W ? [address] ? [address] ? [place] ?[place] ?[address] ? Chk-in # ?? Order ?Exam ?[id number] ?? 0001 ? [id number] ??BC MAMM DIAG BILAT DIG PNL ? Ord Diag: ABN MMG ? HISTORY: ??Six month follow up bilateral ?? BILATERAL DIGITAL DIAGNOSTIC MAMMOGRAM: ?? TECHNIQUE: ??Magnification ML and CC views were performed as recommended from the exam 08/2009. ?? FINDINGS: ?? Calcifications in both upper outer quadrants are scattered, and stable, consistent with fibrocystic changes. ??No focally worrisome clustered calcifications are seen and the calcifications appear to layer, consistent with rjqv-ur-pivpizl. ?? BIRADS CATEGORY II, BENIGN. ?? RECOMMENDATIONS: Yearly mammography due 08/2010 bilaterally with full bilateral mammogram due at that time. ??Yearly physical exam and monthly self-breast exam also recommended. ?? ICAD was utilized. ?? The results, in lay terminology, were given to the patient at the conclusion of her exam. ?/READ BY/ IWONA FREEMAN ?/Released By/ IWONA FREEMAN ?Released By Date/Time: ??03/24/101655 ?Stator Plate Washer: ??DME ? FINAL ? Page ??1 ? RADIOLOGY REPORT us See Report Interface IMG MAMMOGRAPHY ORDERABLES Final Result documented in this encounter Visit Diagnoses Not on filedocumented in this encounter
--- OUTSIDE RECORDS SUMMARY | 2024-08-20 08:49 | XMS_ITS | Encounter Summary ---
Author Organization [facility] Address [address] [place] [address] Care Team Providers Care Automobile Or Truck Rental Dispatcher Name Role Phone Toni Knight MD Primary Care Provider Reason for Visit * Reason Onset Date Comments voicemail 07/29/2020 Returned Call 07/29/2020 pt returned call 08/15/2020 Encounter Details Date Type Department Care Team (Late st Contact Info) Description 07/29/2020 Telephone [facility] GASTROENTEROLOGY [address] [place] [phone] Romina Griffith RegSched Rep voicemail; Returned Call; pt returned call Social History Tobacco Use Types Packs/Day Years Used Date Smoking Tobacco: Former Cigarettes 2014 Smokeless Tobacco: Never Alcohol Use Standard Drinks/Week Comments Yes 0 (1 standard drink = 0.6 oz pur e alcohol) occasional/no abuse [facility] - Occupational Stress Questionnaire Answer Date Recorded [...] Telephone Encounter - Tammy Walters RMA - 09/09/2020 9:03 AM EST I called Ms Fabian nelson. Informed her that we haven't received her medication from [facility] yet. I advised her to call Patient assistance to have them to call us to confirm delivery to [place]residence. Patient voiced understanding. * Telephone Encounter - Romina Griffith - 08/15/2020 2:27 PM EST Returned pt call, advised she needs to s/w PAP and advised phone # and pt ID # so she can get her medication delivered. Understanding was voiced with no further questions or concerns * Telephone Encounter - Tammy Walters RMA - 08/13/2020 2:27 PM EST Romina, I called Ms Fabian nelson. Patient stated she will call you back after she gets off at 3:15pm. Thanks * Telephone Encounter - Romina Griffith - 07/29/2020 8:50 AM EST Pt called lvm requesting return call; returned pt call. No answer. lvm documented in this encounter Plan of Treatment Not on file documented as of this encounter Visit Diagnoses Not on filedocumented in this encounter Care Teams Automobile Or Truck Rental Dispatcher Relationship Specialty Start Date End Date Toni Knight MD [address] [place] [address] [facility] [place] [address] PCP - General Family Medicine 09/16/16 documented as of this encounter
--- OUTSIDE RECORDS SUMMARY | 2024-08-20 08:49 | XMS_ITS | Encounter Summary ---
Author Organization [facility] Address [address] [place] [address] Care Team Providers Care Hydraulic Plumber Helper Name Role Phone Toni Knight MD Primary Care Provider Reason for Visit * Reason Onset Date Comments bowel prep instructions 07/09/2020 Encounter Details Date Type Department Care Team (Late st Contact Info) Description 07/09/2020 Telephone [facility] GASTR[facility]OLOGY [address] [place] [phone] Tammy Walters RMA bowel prep instructions Social History Tobacco Use Types Packs/Day Years Used Date Smoking Tobacco: Former Cigarettes 2014 Smokeless Tobacco: Never Alcohol Use Standard Drinks/Week Comments Yes 0 (1 standard drink = 0.6 oz pur e alcohol) occasional/no abuse [facility] of Occupat ional Health - Occupational [...] Telephone Encounter - Tammy Walters RMA - 07/09/2020 2:47 PM EDT I spoke with Ms Peralta. Bowel prep instructions explained to patient. documented in this encounter Plan of Treatment Not on file documented as of this encounter Visit Diagnoses Not on filedocumented in this encounter Care Teams Hydraulic Plumber Helper Relationship Specialty Start Date End Date Toni Knight MD [address] [facility] [address] [place] [address] PCP - General Family Medicine 09/16/16 documented as of this encounter
--- OUTSIDE RECORDS SUMMARY | 2024-08-20 08:49 | XMS_ITS | Encounter Summary ---
Author Organization [facility] Address [address] [place] [address] Care Team Providers Care Delivery Motorcycle Driver Name Role Phone Toni Knight MD Primary Care Provider Reason for Referral * Diagnostic Imaging (Routine) - Closed Specialty Diagnoses / Procedures Referred By Contac t Referred To Contact Radiology Diagnoses Visit for screening mammogram Procedures Mammo Screening Digital Tomosynthesis Bilateral With CAD Guanakito Stroud [facility] [place] [address] Phone: tel: fax: [facility] [address] [place] [address] Phone: tel: Referral ID Status Reason Start Date Expiration Date Visits Re quested Visits Authorized [id number] Closed 09/19/2018 09/19/2019 1 1 Reason for Visit * Diagnostic Imaging (Routine) - Closed Specialty Diagnoses / Procedures Referred By Contac t Referred To Contact Radiology Diagnoses Visit for screening mammogram Procedures Mammo Screening Digital Tomosynthesis Bilateral With CAD [facility] [address] [place] [id number] Phone: tel: fax: [facility] [address] [place] [address] Phone: tel: Referral ID Status Reason Start Date Expiration Date Visits Re quested Visits Authorized [id number] Closed 09/19/2018 09/19/2019 1 1 Encounter Details Date Type Department Care Team (Late st Contact Info) Description 11/21/2018 3:20 PM EDT - 11/21/2018 11:59 PM EDT Hospital Encounter [facility] [address] [place] [address] Guanakito Stroud MD [address] [facility] [address] [place] [address] Visit for screening mammogram Discharge Disposition: Home [...] SCREENING DIGITAL TOMOSYNTHESIS BILATERAL W CAD Routine 11/21/2018 4:07 PM EDT Visit for screening mammogram documented in this encounter Results * Mammo Screening Digital Tomosynthesis Bilateral With CAD (11/21/2018 4:07 PM EDT) Anatomical Region Laterality Modality Breast N/A Mammography 11/22/2018 2:39 PM EDT Impressions 11/22/2018 2:39 PM EDT Negative bilateral mammogram. RECOMMENDATION: ??Continue annual screening mammography. BI-RADS CATEGORY 1, NEGATIVE. CAD was utilized. The standard false-negative rate of mammography is between 10% and 25%. Complex patterns or increased breast density will markedly elevate the false-negative rate of mammography. ?? A letter, in lay terminology, with the results of this exam will be mailed to the patient. ?? This report was finalized on 11/22/2018 2:[address] Ann Elam MD. Narrative 11/22/2018 2:39 PM EDT HISTORY: Screening Mammography. Low dose full field digital breast tomosynthesis imaging was performed with 2D and 3D acquisitions consisting of bilateral CC and MLO views. ?? Examination is compared to prior examination dating back to 10/01/2013. Examination is read in conjunction with computer aided detection. FINDINGS: ?? The breasts are heterogeneously dense, which may obscure small masses. No suspicious masses, microcalcifications or ??areas of architectural distortion are present. us Guanakito Stroud MD IMG MAMMOGRAPHY ORDERABLES Final Result documented in this encounter Visit Diagnoses Diagnosis Visit for screening mammogram documented in this encounter Care Teams Delivery Motorcycle Driver Relationship Specialty Start Date End Date Toni Knight MD [address] [facility] [address] [facility] 2 [place] [address] PCP - General Family Medicine 09/16/16 documented as of this encounter
--- OUTSIDE RECORDS SUMMARY | 2024-08-20 08:49 | XMS_ITS | Encounter Summary ---
Author Organization [facility] Address [address] [place] [address] Care Team Providers Care Physician Practice Manager Name Role Phone Toni Knight MD Primary Care Provider Reason for Referral * Diagnostic Imaging (Routine) - Closed Specialty Diagnoses / Procedures Referred By Og castorena Referred To Contact Radiology Diagnoses Visit for screening mammogram Procedures Mammo Screening Digital Tomosynthesis Bilateral With CAD Guanakito Stroud MD [address] [place] [address] Phone: tel: fax: Referral ID Status Reason Start Date Expiration Date Visits Re quested Visits Authorized [id number] Closed 10/02/2020 10/02/2021 1 1 Reason for Visit * Diagnostic Imaging (Routine) - Closed Specialty Diagnoses / Procedures Referred By Og castorena Referred To Contact Radiology Diagnoses Visit for screening mammogram Procedures Mammo Screening Digital Tomosynthesis Bilateral With CAD Guanakito Stroud MD [address] [place] [address] Phone: tel: fax: Referral ID Status Reason Start Date Expiration Date Visits Re quested Visits Authorized [id number] Closed 10/02/2020 10/02/2021 1 1 Encounter Details Date Type Department Care Team (Late st Contact Info) Description 10/30/2020 3:00 PM EST - 10/30/2020 11:59 PM EST Hospital Encounter [facility] [address] [place] [address] Guanakito Stroud MD [address] [facility] [address] [place] [address] Visit for screening mammogram Discharge Disposition: Home or Self Care Social History Tobacco Use Types Packs/Day Years Used Date Smoking Tobacco: Former Cigarettes 2014 Smokeless Tobacco: Never Alcohol Use Standard Drinks/Week Comments Yes 0 (1 standard drink = 0.6 oz pur e alcohol) occasional/no abuse [facility] [place] [facility] Questionnaire Answer Date [...] by mouth As Needed for Sleep. 05/02/20 ondansetron (Zofran) 4 MG tabletIndications:N ausea and vomiting, intractability of vomiting not specified, unspecified vomiting type Take 1 tablet by mouth Every 6 (Six) Hours As Needed (FOR COLONOSCOPY PREP). 6 tablet 0 05/02/20 23 pantoprazole (PROTONIX) 40 MG EC tablet Take 40 mg by mouth Daily. 05/02/20 cswyhe-hefwkakzz-xj gnesium sulfates (Suprep Bowel Prep Kit) 17.5-3.13-1.6 GM/177ML solution oral solutionIndications :Screening for colon cancer Take 1 bottle by mouth Take As Directed. Follow instructions that were mailed to your home. If you didn't receive these call [phone]. 2 bottle 0 05/02/20 documented as of this encounter Plan of Treatment Not on file documented as of this encounter Procedures Procedure Name Priority Date/Time Associated Diagnosis Comments MAMMO SCREENING DIGITAL TOMOSYNTHESIS BILATERAL W CAD Routine 10/30/2020 3:33 PM EST Visit for screening mammogram documented in this encounter Results * Mammo Screening Digital Tomosynthesis Bilateral With CAD (10/30/2020 3:33 PM EST) Anatomical Region Laterality Modality Breast N/A Mammography 11/03/2020 4:26 PM EST Impressions 11/03/2020 4:30 PM EST No findings suspicious for malignancy. ACR BI-RADS CATEGORY: ??1, NEGATIVE RECOMMENDATION: Yearly mammogram, yearly clinical breast exam, [...] imaging findings. This report was finalized on 11/03/2020 4:30 PM by Lela Morales MD. Narrative 11/03/2020 4:30 PM EST ROUTINE DIGITAL SCREENING MAMMOGRAM WITH TOMOSYNTHESIS HISTORY: Routine screening. IMAGE COMPARISON: ??Extending to 2018. TECHNIQUE: ??Low dose full field digital breast tomosynthesis imaging was performed with 2D and 3D acquisitions consisting of bilateral CC and MLO views. FINDINGS: There are scattered fibroglandular tissues. The fibroglandular pattern appears stable. ??There is no mass, worrisome microcalcifications, or architectural distortion to suggest development of malignancy. us Guanakito Stroud MD IMG MAMMOGRAPHY ORDERABLES Final Result documented in this encounter Visit Diagnoses Diagnosis Visit for screening mammogram documented in this encounter Care Teams Physician Practice Manager Relationship Specialty Start Date End Date Toni Knight MD [facility] [address] [facility] [address] [place] [address] PCP - General Family Medicine 09/16/16 documented as of this encounter
--- OUTSIDE RECORDS SUMMARY | 2024-08-20 08:49 | XMS_ITS | Encounter Summary ---
Author Organization [facility] Address [address] [place] [address] Care Team Providers Care Vessel Engineer Name Role Phone Toni Knight MD Primary Care Provider Reason for Visit * Reason Comments Follow-up 3.5 months- primary osteoarthritis of bilateral knees Encounter Details Date Type Department Care Team (Late st Contact Info) Description 11/16/2021 3:30 PM EST Office Visit [facility] [address] [place] [address] Maulik Carrillo MD [address] [place] [address] Primary osteoarthritis of right knee (Primary Dx); Primary osteoarthritis of left knee Social History Tobacco Use Types Packs/Day Years Used Date Smoking Tobacco: Former Cigarettes 2014 Smokeless Tobacco: Never Alcohol Use Standard Drinks/Week Comments Yes 0 (1 standard drink = 0.6 oz pur e alcohol) occasional/no abuse [facility] of Occupat ional Health - Occupational Stress [...] Sign Reading Time Taken Comments Blood Pressure 122/82 11/16/2021 3:17 PM EST Pulse - - Temperature - - Respiratory Rate - - Oxygen Saturation - - Inhaled Oxygen Concentration - - Weight 107 kg (235 lb) 11/16/2021 3:17 PM EST Height 167.6 cm (5' 5.98 ) 11/16/2021 3:17 PM ES T Body Mass Index 37.95 11/16/2021 3:17 PM EST documented in this encounter Progress Notes * Maulik Carrillo MD - 11/16/2021 3:30 PM EST Images from the original note were not included. [facility] Orthopaedic Surgery Clinic Note Subjective Chief Complaint Patient presents with ??? Follow-up 3.5 months- primary osteoarthritis of bilateral knees HPI It has been 3 month(s) since Ms. Peralta's last visit. She returns to clinic today for follow-up ofright knee pain. The issue has been ongoing for 9 month(s). She rates her pain a 5/10 on the pain scale. Previous/current treatments: NSAIDS and steroid injection (last injection 07/2021). Current sym ptoms: pain, popping and grinding. The pain is worse with walking, sitting and sleeping; resting improve the pain. Overall, she is doing the same. Right knee bothers her more than the left. She wouldlike to have an injection in her right knee today. I have reviewed the following portions [...] Types: Cigarettes Quit date: 2014 Years since quittin.1 ??? Smokeless tobacco: Never Used Substance and Sexual Activity ??? Alcohol use: Yes Comment: occasional/no abuse ??? Drug use: Never ??? Sexual activity: Not Currently control/protection: Post-menopausal Comment: Per [place], yes Current Outpatient Medications on File Prior [...] Product (ALIGN PO) Take by mouth. ??? dgmrgp-xhbgzgjom-ybgvxkobt sulfates (Suprep Bowel Prep Kit) 17.5-3.13-1.6 GM/177ML solution oral solution Take 1 bottle by mouth Take As Directed. Follow instructions that were mailed to your home. If you didn't receive these call [phone]. 2 bottle 0 No current facility-administered medications [...] is not hyperactive. Objective Physical Exam BP 122/82 Ht 167.6 cm (65.98 ) Wt 107 kg (235 lb) BMI 37.95 kg/m?? Body mass index is 37.95 kg/m??. General: Mental Status: Alert Appearance: Cooperative, in no acute distress Build and Nutrition: Obese by BMI female Orientation: Alert and oriented to person, place and time Posture: Normal Gait: Nonantalgic Integument: Right knee: no skin lesions, no rash, no ecchymosis Left knee: no skin lesions, no rash, no ecchymosis ?? Lower Extremities: Right Knee: Tenderness: Medial and lateral joint line tenderness Effusion: Trace Swelling: None Crepitus: Positive Atrophy: None Range of motion: Extension: 0?? Flexion: 120?? Instability: No varus laxity, no valgus laxity, negative anterior drawer Deformities: Mild varus Left Knee: Tenderness: Mild medial and lateral joint line tenderness Effusion: None Swelling: None Crepitus: Positive Atrophy: None Range of motion: Extension: 0?? Flexion: 120?? Instability: No varus laxity, no valgus laxity, negative anterior drawer Deformities: Mild varus Imaging/Studies Imaging Results (Last 24 Hours) No results found for the last 24 hours. No new imaging today Assessment and Plan Diagnoses and all orders for this visit: 1. Primary osteoarthritis of right knee (Primary) - Large Joint Arthrocentesis: R knee 2. Primary osteoarthritis of left knee 1. Primary osteoarthritis of right knee 2. Primary osteoarthritis of left knee Reviewed my findings with the patient today. Right knee bothers her more than the left and she would like to have a right knee injection today. I will see her back in 4 months, but sooner for any problems. Ultimately she is a candidate for knee replacement surgery and her symptoms warrant. Procedure Note: The potential benefits of performing [...] joint. The patient tolerated the procedurewell, experiencing 95% improvement a few minutes following the injection. There were no complications. Band-Aid was applied to the injection site. Post-procedural instructions were given to the patient and/or their caregiver. Return in about 4 months (around 03/18/2022). Maulik Carrillo MD 11/16/21 16:15 EST * Joi Sutton CMA - 11/16/2021 3:30 PM ESTAssociated Order(s): Large Joint Arthrocentesis: R knee Procedure Large Joint Arthrocentesis: R knee Date/Time: 11/16/2021 3:55 PM Consent given by: patient Site marked: site marked Timeout: Immediately prior to procedure a time out was called to verify the correct patient, procedure, equipment, program support specialist and site/side marked as required Supporting Documentation Indications: pain Procedure Details Location: knee - R knee Preparation: Patient was prepped and draped [...] ARTHROCENTESIS ASPIR&/INJ MAJOR JT/BURSA W/O US Routine 11/16/2021 3:55 PM EST Primary osteoarthritis of right knee documented in this encounter Results * DE ARTHROCENTESIS ASPIR&/INJ MAJOR JT/BURSA W/O US (11/16/2021 3:55 PM EST) Narrative oJi Sutton CMA - 11/16/2021 3:55 PM EST Joi Sutton CMA ? 11/16/2021 ??4:15 PM Large Joint Arthrocentesis: R knee Date/Time: 11/16/2021 3:55 PM Consent given by: patient Site marked: site marked Timeout: Immediately prior to procedure a time out was called to verify the correct patient, procedure, equipment, program support specialist and site/side marked as required Supporting Documentation Indications: pain Procedure Details Location: knee - R knee Preparation: Patient was prepped and draped [...] mL 4 mL, One-Time Injection, Starting on Tue11/16/21 at 1555, For 1 doseIndications:Primary osteoarthritis of right knee Given 11/16/2021 3:55 PM EST 4 mL triamcinolone acetonide (KENALOG-40) injection 40 mg 40 mg, One-Time Injection, Starting on Tue11/16/21 at 1555, For 1 doseIndications:Primary osteoarthritis of right knee Given 11/16/2021 3:55 PM EST 40 mg documented in this encounter Care Teams Vessel Engineer Relationship Specialty Start Date End Date Toni Knight MD [address] [place] [address] [facility] [address] [place] [address] PCP - General Family Medicine 09/16/16 documented as of this encounter
--- OUTSIDE RECORDS SUMMARY | 2024-08-20 08:49 | XMS_ITS | Encounter Summary ---
Author Organization [facility] Address [address] [place] [address] Care Team Providers Care Hotel Front Desk Clerk Name Role Phone Unavailable Primary Care Provider Unavailabl e Encounter Details Date Type Department Care Team (Late st Contact Info) Description 10/01/2013 Historical Mammography Encounter [facility]IST[facility] [address] [place] [address] Guanakito Stroud MD [address] [facility] [address] [place] [address] Social History Tobacco Use Types Packs/Day Years [...] Comments MAMMO SCREENING BILATERAL W CAD Routine 10/01/2013 9:30 AM EST documented in this encounter Results * MAMMOGRAPHY SCREENING BILATERAL (10/01/2013 9:30 AM EST) Anatomical Region Laterality Modality Breast Bilateral Mammography 10/01/2013 9:30 AM EST Narrative 10/02/2013 11:25 AM EST ROUTINE DIGITAL SCREENING MAMMOGRAM HISTORY: Routine screening. ?? TECHNIQUE: Routine bilateral CC and MLO digital mammographic images were obtained and supplemented with bilateral laterally exaggerated CC views. IMAGE COMPARISON: ??10/30/12, 10/02/12, 09/27/11, 09/28/10, 03/24/10, 08/20/09, 07/23/09. FINDINGS: ??There are scattered fibroglandular densities which could obscure a lesion on mammography. The bilateral fibroglandular pattern is stable in appearance. There are stable bilateral scattered and clustered punctate amorphous calcifications. There is no mass, worrisome microcalcifications, or architectural distortion to suggest development of malignancy. IMPRESSION- No findings suspicious for malignancy. ?? BI-RADS CATEGORY: ??II, BENIGN RECOMMENDATION: Yearly mammogram, yearly physical exam, and monthly self breast exam. CAD was used. The standard false negative [...] should be considered regardless of imaging findings. ? Psych Assistant- JOLLY LANDRY ? Reading Beti [facility]CHISS ? Releasing [employer] ? Released Date Time- 10/04/13 1123 Guanakito Stroud MD [facility] MAMMOGRAPHY ORDERABLES Final Result documented in this encounter Visit Diagnoses Not on filedocumented in this encounter
--- OUTSIDE RECORDS SUMMARY | 2024-08-20 08:49 | XMS_ITS | Encounter Summary ---
[facility] Address [address] [place] [address] Care Team Providers Care Ropewalk Rope Maker Name Role Phone Toni Knight MD Primary Care Provider Reason for Visit * Reason Onset Date Comments DR. ELIF Novoa LT KNEE INJ 12/25/2020 Encounter Details Date Type Department Care Team (Late st Contact Info) Description 12/25/2020 Telephone [facility] ORTHOPED[facility] & SPORTS MEDICINE [address] [place] [address] Maulik Carrillo MD [address] [place] [address] DR. ELIF Novoa LT KNEE INJ Social History Tobacco Use Types Packs/Day Years Used Date Smoking Tobacco: Former Cigarettes 2014 Smokeless Tobacco: Never Alcohol Use Standard Drinks/Week Comments Yes 0 (1 standard drink = 0.6 oz pur e alcohol) occasional/no abuse [facility] [place] of Occupat ional Health - Occupational Stress [...] Telephone Encounter - Payal Lafleur R.T.(Clifford) - 12/25/2020 2:58 PM EDT I called patient and advised that the 3 mile walk is fine to do as long as she feels up to it. * Telephone Encounter - Liberty Goodson RegSched Rep - 12/25/2020 2:10 PM EDT Provider: DR. CARRILLO Caller: BEN VALENCIA Relationship to Patient: SELF Reason for Call: 3-MILE WALK When was the patient last seen: 06-09-2020 PATIENT WOULD LIKE A CALL BACK TO DISCUSS LT KNEE INJECTION SHE IS RECEIVING 12-31-20. SHE HAS A 3-MILE WALK ON 01-03-21 AND WANTS TO MAKE SURE THIS IS NOT GOING TO CAUSE AN ISSUE WITH INJECTION. documented in this encounter Plan of Treatment Not on file documented as of this encounter Visit Diagnoses Not on filedocumented in this encounter Care Teams Ropewalk Rope Maker Relationship Specialty Start Date End Date Toni Knight MD [address] [place] [facility] [address] [place] [address] PCP - General Family Medicine 09/16/16 documented as of this encounter
--- OUTSIDE RECORDS SUMMARY | 2024-08-20 08:49 | XMS_ITS | Encounter Summary ---
Author Organization [facility] Address [address] [place] [address] Care Team Providers Care Kennel Operator Name Role Phone Toni Knight MD Primary Care Provider Reason for Visit * Reason Comments Follow-up 6 months follow up P rimary osteoarthritis of left knee Encounter Details Date Type Department Care Team (Late st Contact Info) Description 12/31/2020 3:50 PM EDT Office Visit [facility]IC[facility] [address] [place] [address] [place] [address] [place] [address] Primary osteoarthritis of left knee (Primary Dx) Social History Tobacco Use Types Packs/Day Years Used Date Smoking Tobacco: Former Cigarettes 2014 Smokeless Tobacco: Never Alcohol Use Standard Drinks/Week Comments Yes 0 (1 standard drink = 0.6 oz pur e alcohol) occasional/no abuse [facility] of Occupat ional Health - Occupational Stress [...] Sign Reading Time Taken Comments Blood Pressure 136/85 12/31/2020 3:35 PM EDT Pulse 84 12/31/2020 3:35 PM EDT Temperature - - Respiratory Rate - - Oxygen Saturation - - Inhaled Oxygen Concentration - - Weight 104 kg (229 lb 9.6 oz) 12/31/2020 3:35 PM EDT Height 167.6 cm (5' 5.98 ) 12/31/2020 3:35 PM ED T Body Mass Index 37.08 12/31/2020 3:35 PM EDT documented in this encounter Progress Notes * Maulik Carrillo MD - 12/31/2020 3:50 PM EDT Images from the original note were not included. [facility] Orthopaedic Surgery Clinic Note Subjective Chief Complaint Patient presents with ??? Follow-up 6 months follow up Primary osteoarthritis of left knee HPI Zaida Peralta is a 55 y.o. female who follows up for left knee pain. She would like to havean injection today as she had a previous injection with good relief. She was last seen here in the office on 06/09/2020. She has had pain in her left knee for over 1 year with swelling, popping, grinding, stiffness, and giving way. It is worse with walking, climbing stairs, and sleeping. The injection provided relief until around 1 month ago. She reports intermittent pain in the medial aspect of both knees, her back, hands, and feet. She also endorses stiffness. The patient has not seen a architecture manager before. I have reviewed the following portions of [...] History Socioeconomic History ??? Marital status: Single Spouse name: Not on file ??? Number of children: 1 ??? Years of education: Not on file ??? Highest education level: Not on file Tobacco Use ??? Smoking status: Former Smoker Packs/day: 1.00 Years: 20.00 Pack years: 20.00 Types: Cigarettes Quit date: 2014 Years since quittin.3 ??? Smokeless tobacco: Never Used Vaping Use ??? Vaping Use: Never assessed Substance and Sexual Activity ??? Alcohol use: Yes Comment: occasional/no abuse ??? Drug use: Never ??? Sexual activity: Not Currently control/protection: Post-menopausal Comment: [place], yes Current Outpatient Medications on File Prior [...] Product (ALIGN PO) Take by mouth. ??? ywsqic-edslqillt-ieqoulijw sulfates (Suprep Bowel Prep Kit) 17.5-3.13-1.6 GM/177ML solution oral solution Take 1 bottle by mouth Take As Directed. Follow instructions that were mailed to your home. If you didn't receive these call [phone]. 2 bottle 0 No current facility-administered medications on file prior to visit. Allergies Allergen Reactions ??? Bactrim [Sulfamethoxazole-Trimethoprim] Other (See Comments) Drug fever ??? Keflex [Cephalexin] Other (See Comments) Drug fever Review of Systems Constitutional: Negative. HENT: Negative. Eyes: Negative. Respiratory: Negative. Cardiovascular: Negative. Gastrointestinal: Negative. Endocrine: Negative. Genitourinary: Negative. Musculoskeletal: Positive for arthralgias. Skin: Negative. Allergic/Immunologic: Negative. Neurological: Negative. Hematological: Negative. Psychiatric/Behavioral: Negative. Objective Physical Exam BP 136/85 Pulse 84 Ht 167.6 cm (65.98 ) Wt 104 kg (229 lb 9.6 oz) BMI 37.08 kg/m?? Body mass index is 37.08 kg/m??. General: Mental Status: Alert Appearance: Cooperative, in no acute distress Build and Nutrition: Overweight female Orientation: Alert and oriented to person, place and time Posture: Normal Gait: Mildly antalgic on the left Integument ??? Left knee: No skin lesions, rash, or ecchymosis. Lower Extremities ??? Left Knee: ??? Tenderness: Medial and lateral joint line tenderness. ??? Swelling: None ??? Effusion: Trace ??? Crepitus: Positive ??? Atrophy: None ??? Range of motion: ??? Extension: 0? Flexion: 120? Instability: No varus or valgus laxity. Negative anterior drawer. ??? Deformities: None Imaging/Studies No new radiographs. Assessment and Plan Diagnoses and all orders for this visit: 1. Primary osteoarthritis of left knee (Primary) - Large Joint Arthrocentesis: L knee 1. Primary osteoarthritis of left knee As she is still having left knee pain, she requested another injection today, which I was agreeableto. In terms of her other aches, I advised her to follow up with her primary care for potential testing of a systemic arthropathy and provide further treatment. Procedure Note: The potential benefits of performing a therapeutic left knee joint injection, as well as potential risks (including, but not limited to infection, swelling, pain, bleeding, bruising, nerve/blood vessel damage, skin color changes, transient elevation in blood glucose levels, and fat atrophy) were discussed with the patient. After informed consent was obtained, a timeout procedure was performed, and the skin on the left knee was prepped with chlorhexidine soap and alcohol, after which ethyl chloride was applied to the skin at the injection site. Via the anterolateral approach, 1 ml of Kenalog 40 mg/ml mixed with 4 ml 0.5% ropivacaine plain was injected into the knee joint. The patient tolerated the procedure well, experiencing 75% improvement a few minutes following the injection. There were no complications. A Band-Aid was applied to the injection site. Post-procedural instructions were given to the patient and/or their caregiver. Return in about 4 months (around 05/02/2021). Scribed for Maulik Carrillo MD by Loree Cat. 12/31/20 16:34 EDT I have personally performed the services described in this document as scribed by the above individual, and it is both accurate and complete. Maulik Carrillo MD 12/31/2020 16:55 EDT * Romana Blanco MA - 12/31/2020 3:50 PM EDTAssociated Order(s): Large Joint Arthrocentesis: L knee Procedure Large Joint Arthrocentesis: L knee Date/Time: 12/31/2020 4:19 PM Consent given by: patient Site marked: site marked Timeout: Immediately prior to procedure a time out was called to verify the correct patient, procedure, equipment, application support analyst and site/side marked as required Supporting Documentation Indications: pain Procedure Details Location: knee - L knee Preparation: Patient was prepped and draped in the usual sterile fashion Needle size: 23 G Approach: anterolateral Medications administered: 4 mL ropivacaine 0.5 %; 40 mg triamcinolone acetonide 40 MG/ML Patient tolerance: patient tolerated the procedure well with no immediate complications documented in this encounter Plan of Treatment Not on file documented as of this encounter Procedures Procedure Name Priority Date/Time Associated Diagnosis Comments SD ARTHROCENTESIS ASPIR&/INJ MAJOR JT/BURSA W/O US Routine 12/31/2020 4:19 PM EDT Primary osteoarthritis of left knee documented in this encounter Results * SD ARTHROCENTESIS ASPIR&/INJ MAJOR JT/BURSA W/O US (12/31/2020 4:19 PM EDT) Narrative Romana Blanco MA - 12/31/2020 4:19 PM EDT Romana Blanco MA ? 12/31/2020 ??4:55 PM Large Joint Arthrocentesis: L knee Date/Time: 12/31/2020 4:19 PM Consent given by: patient Site marked: site marked Timeout: Immediately prior to procedure a time out was called to verify the correct patient, procedure, equipment, application support analyst and site/side marked as required Supporting Documentation Indications: pain Procedure Details Location: knee - L knee Preparation: Patient was prepped and draped in the usual sterile fashion Needle size: 23 G Approach: anterolateral Medications administered: 4 mL [...] mL 4 mL, One-Time Injection, Starting on Tue12/31/20 at 1619, For 1 doseIndications:Primary osteoarthritis of left knee Given 12/31/2020 4:19 PM EDT 4 mL triamcinolone acetonide (KENALOG-40) injection 40 mg 40 mg, One-Time Injection, Starting on Tue12/31/20 at 1619, For 1 doseIndications:Primary osteoarthritis of left knee Given 12/31/2020 4:19 PM EDT 40 mg documented in this encounter Care Teams Kennel Operator Relationship Specialty Start Date End Date Toni Knight MD [facility] [address] [facility] [address] [facility] [place] [place] [address] PCP - General Family Medicine 09/16/16 documented as of this encounter
--- OUTSIDE RECORDS SUMMARY | 2024-08-20 08:49 | XMS_ITS | Encounter Summary ---
Author Organization [facility] Address [address] [place] [address] Care Team Providers Care Bag Repairer Name Role Phone Toni Knight MD Primary Care Provider Reason for Referral * (Routine) - Closed Specialty Diagnoses / Procedures Referred By Contac t Referred To Contact Radiology Diagnoses Breast pain, left Procedures US Breast Left Limited Guanakito Stroud MD [address] [facility] [address] [place] [address] Phone: tel: fax: Referral ID Status Reason Start Date Expiration Date Visits Re quested Visits Authorized [id number] Closed 06/30/2017 06/30/2018 1 1 Reason for Visit * (Routine) - Closed Specialty Diagnoses / Procedures Referred By Contac t Referred To Contact Radiology Diagnoses Breast pain, left Procedures US Breast Left Limited Guanakito Stroud MD [address] [facility] [address] [place] [address] Phone: tel: fax: Referral ID Status Reason Start Date Expiration Date Visits Re quested Visits Authorized [id number] Closed 06/30/2017 06/30/2018 1 1 Encounter Details Date Type Department Care Team (Latest Contact Info) Description 06/30/2017 9:14 AM EDT - 06/30/2017 11:59 PM EDT Hospital Encounter [facility] [address] [address] [facility] [address] [place] [address] Breast pain, left Discharge Disposition: Home or Self Care Social History Tobacco Use Types Packs/Day Years Used Date Smoking Tobacco: Never Assessed Comments No Sex and Gender Information Value Date Recorded Sex Assigned at Not on file Legal Sex Female 10:33 AM EDT Gender Identity Not on file Sexual Orientation Not on file documented as of this encounter Plan of Treatment Scheduled Orders Name Type Priority Associated Diagnoses Orde r Schedule US Breast Left Limited Imaging Routine Breast pain, left Once for 1 Occurrences starting 06/30/2017 until 06/30/2017 documented as of this encounter Visit Diagnoses Diagnosis Breast pain, left documented in this encounter Care Teams Bag Repairer Relationship Specialty Start Date End Date Toni Knight MD [address] [facility] [address] [place] [address] PCP - General Family Medicine 09/16/16 documented as of this encounter
--- OUTSIDE RECORDS SUMMARY | 2024-08-20 08:49 | XMS_ITS | Encounter Summary ---
Author Organization [facility] Address [address] [place] [address] Care Team Providers Care Sterile Products Processor Name Role Phone Unavailable Primary Care Provider Unavailabl e Encounter Details Date Type Department Care Team (Late st Contact Info) Description 09/30/2014 8:25 AM EST - 09/30/2014 11:59 PM EST Hospital Encounter [facility] [address] [phone] Guanakito Stroud MD [address] [facility] [address] [place] [address] Social History Tobacco Use Types Packs/Day Years [...] Comments MAMMO SCREENING BILATERAL W CAD Routine 09/30/2014 8:31 AM EST documented in this encounter Results * MAMMOGRAPHY SCREENING BILATERAL (09/30/2014 8:31 AM EST) Anatomical Region Laterality Modality Breast Bilateral Mammography 09/30/2014 8:31 AM EST Narrative 09/30/2014 4:51 PM EST BILATERAL SCREENING MAMMOGRAM WITH TOMOSYNTHESIS - 09/30/2014: HISTORY: 49-year-old patient with no personal history of breast cancer and no current breast complaints. Her mother was diagnosed with breast cancer in her 60s. TECHNIQUE: ??Low dose full field digital breast tomosynthesis imaging was performed with 2D and 3D acquisitions. COMPARISON: 10/01/2013, 10/30/2012, 10/02/2012, 09/27/2011, 09/28/2010, and 03/24/2010. FINDINGS: There are scattered areas of fibroglandular density. There is a possible area of architectural distortion in the right upper outer quadrant. Additional mammographic imaging is recommended. The remaining bilateral fibroglandular pattern and bilateral nodularity are stable in appearance. No significant change is identified in bilateral calcifications. IMPRESSION- Possible area of architectural distortion in the right upper outer quadrant. RECOMMENDATION: 2D/3D right CC and MLO focal compression views and a 2D/3D right ML view. BI-RADS CATEGORY 0, INCOMPLETE: ??NEEDS ADDITIONAL IMAGING EVALUATION. ?? She will be [...] patient. Physician Order Diagnostic Mammogram and/or Ultrasound. Diagnosis: Abnormal Screening Mammogram ? Reading Radiologist- ARCELIA PEREZ ? Releasing Radiologist- ARCELIA PEREZ ? Released Date Time- 10/01/141707 ? Registered Pharmacy Technician- Errlo Guanakito Stroud MD IMG MAMMOGRAPHY ORDERABLES Final Result documented in this encounter Visit Diagnoses Not on filedocumented in this encounter
--- OUTSIDE RECORDS SUMMARY | 2024-08-20 08:49 | XMS_ITS | Encounter Summary ---
Author Organization [facility] Address [address] [place] [address] Care Team Providers Care Cyanide Pot Hardener Name Role Phone Unavailable Primary Care Provider Unavailabl e Encounter Details Date Type Department Care Team (Late st Contact Info) Description 11/05/2014 1:47 PM EST - 11/05/2014 11:59 PM EST Hospital Encounter [facility] 1760 [facility] [address] [place] [address] Guanakito Stroud MD 1700 [facility] [address] [place] [address] Social History Tobacco Use Types Packs/Day Years [...] Priority Date/Time Associated Diagnosis Comments MAMMO DIAGNOSTIC UNILATERAL Routine 11/05/2014 1:47 PM EST documented in this encounter Results * MAMMOGRAPHY DIAGNOSTIC UNILATERAL (11/05/2014 1:47 PM EST) Anatomical Region Laterality Modality Breast N/A Mammography 11/05/2014 1:47 PM EST Narrative 11/05/2014 3:27 PM EST RIGHT DIAGNOSTIC MAMMOGRAM CLINICAL INDICATION: ??49-year-old patient recalled from recent screening exam for further evaluation of the right breast. TECHNIQUE: Right MLO and CC focal compression views and a right ML view and right ML focal compression view were obtained all utilizing both 2-D and 3-D imaging. ?? COMPARISON: 09/30/2014, 10/01/2013, 10/30/2012, 10/02/2012, 09/27/2011, 09/28/2010, 03/24/2010, 08/20/2009, 07/23/2009 FINDINGS: The asymmetry in the right breast concerning for a potential area of distortion improved in appearance with additional mammographic imaging with no underlying distortion noted on the additional views obtained today. ?? IMPRESSION- Stable mammographic appearance of the right breast with additional imaging. BIRADS CATEGORY: ??II, BENIGN RECOMMENDATION: ??Recommend the patient resume routine annual screening mammography. CAD was utilized. The standard false-negative rate of mammography is between 10 and 25%. Complex patterns or increased breast density will markedly elevate the false-negative rate of mammography. ?? A letter, in lay terminology, with the results of this exam was given to the patient at the time of the visit. ? Reading Radiologist- OLESYA MASTERS ? Releasing Radiologist- OLESYA MASTERS ? Released Date Time- 11/05/14 1530 ? Client Experience Consultant- Yonathan Guanakito Stroud MD [facility] MAMMOGRAPHY ORDERABLES Final Result documented in this encounter Visit Diagnoses Not on filedocumented in this encounter
--- OUTSIDE RECORDS SUMMARY | 2024-08-20 08:49 | XMS_ITS | Encounter Summary ---
Author Organization [facility] Address [address] [place] [address] Care Team Providers Care Vending Machine Servicer Name Role Phone Toni Knight MD Primary Care Provider Reason for Referral * (Routine) - Closed Specialty Diagnoses / Procedures Referred By Contac t Referred To Contact Radiology Diagnoses Abnormal mammogram Procedures US Breast Left Complete Guanakito Stroud MD 1700 [facility] [address] [place] [address] Phone: tel: fax: Referral ID Status Reason Start Date Expiration Date Visits Re quested Visits Authorized [id number] Closed 11/22/2019 11/21/2020 1 1 Reason for Visit * (Routine) - Closed Specialty Diagnoses / Procedures Referred By Contac t Referred To Contact Radiology Diagnoses Abnormal mammogram Procedures US Breast Left Complete Guanakito Stroud MD 1700 [facility] [address] [place], [place] [id number] Phone: tel: fax: Referral ID Status Reason Start Date Expiration Date Visits Re quested Visits Authorized [id number] Closed 11/22/2019 11/21/2020 1 1 Encounter Details Date Type Department Care Team (Late st Contact Info) Description 11/27/2019 12:39 PM EDT - 11/27/2019 11:59 PM EDT Hospital Encounter [facility] [address] [facility] [address] [phone] Ilda Bryant MD 1760 [facility] [address] [place] [address] Abnormal mammogram Discharge Disposition: Home or Self [...] Procedure Name Priority Date/Time Associated Diagnosis Comments US BREAST LEFT COMPLETE Routine 11/27/2019 1:21 PM EDT Abnormal mammogram documented in this encounter Results * US Breast Left Complete (11/27/2019 1:21 PM EDT) Anatomical Region Laterality Modality Breast Left Ultrasound 11/27/2019 1:09 PM EDT Impressions 11/27/2019 2:29 PM EDT Benign findings left breast. ACR BI-RADS CATEGORY: 2, BENIGN. RECOMMENDATION: Recommend the patient continue with routine annual screening mammography. She will be due after 11/19/2020 for her next screening exam. A letter, in lay terminology, with the results of this exam was given to the patient at the time of the visit. This report was finalized on 11/27/2019 2:[address] Ilda Bryant MD. Narrative 11/27/2019 2:29 PM EDT LEFT BREAST ULTRASOUND: CLINICAL INDICATION: ??54-year-old patient recalled from screening study done on 11/20/2019 for further evaluation of the left breast. TECHNIQUE: Multiple transverse and sagittal images of the left upper outer quadrant periareolar region were obtained. COMPARISON: Comparison is made to the patient's recent screening mammogram done on 11/20/2019. FINDINGS: ??In the 1:00 periareolar region there is a cyst measuring 1.5 cm in size. This is felt to correlate to the mass noted on the recent screening mammogram. No solid masses or abnormal areas of shadowing are seen in the imaged portions of the left breast. us Ilda Bryant MD IMG US ORDERABLES Final Resul t documented in this encounter Visit Diagnoses Diagnosis Abnormal mammogram Abnormal mammogram, unspecified documented in this encounter Care Teams Vending Machine Servicer Relationship Specialty Start Date End Date Toni Knight MD 1210 [facility] [address] [facility] [address] [facility] [place] [address] PCP - General Family Medicine 09/16/16 documented as of this encounter
--- OUTSIDE RECORDS SUMMARY | 2024-08-20 08:49 | XMS_ITS | Encounter Summary ---
Author Organization [facility] Address [address] [place] [address] Care Team Providers Care Kohinoor Operator Name Role Phone Unavailable Primary Care Provider Unavailabl e Encounter Details Date Type Department Care Team (Late st Contact Info) Description 07/23/2009 Historical Mammograp hy Encounter [facility] [address] [place] [address] Interface, See Report Social History [...] Associated Diagnosis Comments MAMMO HISTORICAL RESULT Routine 07/23/2009 10:37 AM EST documented in this encounter Results * MAMMO HISTORICAL RESULT (07/23/2009 10:37 AM EST) Anatomical Region Laterality Modality Breast Mammography 07/23/2009 10:3 7 AM EST Narrative 07/23/2009 1:42 PM EST ?[facility] ? [address] ??[place], [place] [address] ? NAME: LYRIC PERALTA ? : ??65 ??MR#: [id number] ? LOC: ?? CO ? AGE: 44Y ?? Pt type: CO ?Exam Date: 07/23/09 1038 ? SEX: F ?? AN#:[id number] ?Ck-in#: [id number] ? HILDA,PIPPA W ? [address] ? [address] ? [place] ?[place] ?[address] ? Chk-in # ?? Order ?Exam ?[id number] ?? 0001 ? [id number] ??BC MAMM SCREEN BILAT DIG PNL ? Ord Diag: SCREENING ? HISTORY: ?? 44 year old female for routine screening mammogram. Positive family history of breast cancer in her mother. ?? BILATERAL DIGITAL MAMMOGRAM: ?? FILM COMPARISON: ??The exam is compared to prior exams, most recently dated 01/23/2008. ?? FINDINGS: ??The breast parenchymal pattern is heterogeneously dense overall and quite nodular. ??Calcifications appear to have increased and bilateral true lateral views are recommended. Spot compression views are recommended for increased density and bilateral full breast ultrasound would be necessary. ??Findings all likely represent fibrocystic changes. ?? IMPRESSION: ??Increased nodularity both breasts. Also, increased calcifications and areas of increased density. ??Spot compression views are recommended as well as bilateral true lateral views and full bilateral breast ultrasound. ?? Bi-Rads 0, incomplete. ??Needs additional imaging. ?? The patient will be contacted by our office for the additional studies. Please accept this as sufficient as an order for additional imaging. ?? The standard false negative rate of mammography is between 10 and 25%. Complex patterns or increased breast density will markedly elevate the false negative rate of mammography. ?? ICAD was utilized. ? FINAL ?CONTINUED ?Page ??1 ? RADIOLOGY REPORT ?[facility] ? [address] ??[place], [place] [address] ? NAME: LYRIC PERALTA ? : ??[birth year] ??MR#: [id number] ? LOC: ?? CO ? AGE: 44Y ?? Pt type: CO ?Exam Date: 07/23/09 1038 ? SEX: F ?? AN#:[id number] ?Ck-in#: [id number] ? HILDA,PIPPA W ? [address] ? [address] ? [place] ?[place] ?[address] ? Checkin-Exam Code Summary ? [id number] A letter, in lay terminology, with the results of this exam will be mailed to the patient. ?/READ BY/ IWONA NICKERSON ?/Released By/ IWONA NICKERSON ?Released By Date/Time: ??11/11/09 1329 ?Title I Math Tutor: ??JBW ? FINAL ? Page ??2 ? RADIOLOGY REPORT us See Report Interface IMG MAMMOGRAPHY ORDERABLES Final Result documented in this encounter Visit Diagnoses Not on filedocumented in this encounter
--- OUTSIDE RECORDS SUMMARY | 2024-08-20 08:49 | XMS_ITS | Encounter Summary ---
[facility] Address [address] [place] [address] Care Team Providers Care Clinical Data Management Manager Name Role Phone Toni Knight MD Primary Care Provider Reason for Referral * Diagnostic Imaging (Routine) - Closed Specialty Diagnoses / Procedures Referred By Contac t Referred To Contact Radiology Diagnoses Visit for screening mammogram Procedures Mammo screening digital tomosynthesis bilateral w Guanakito Brumfield MD [address] [place] [address] Phone: tel: fax: [facility] [address] [place] [address] Phone: tel: Referral ID Status Reason Start Date Expiration Date Visits Re quested Visits Authorized [id number] Closed 10/24/2019 10/23/2020 1 1 Reason for Visit * Diagnostic Imaging (Routine) - Closed Specialty Diagnoses / Procedures Referred By Contac t Referred To Contact Radiology Diagnoses Visit for screening mammogram Procedures Mammo screening digital tomosynthesis bilateral w Guanakito Brumfield MD [address] [place] [address] Phone: tel: fax: [facility] [address] [place] [address] Phone: tel: Referral ID Status Reason Start Date Expiration Date Visits Re quested Visits Authorized [id number] Closed 10/24/2019 10/23/2020 1 1 Encounter Details Date Type Department Care Team (Late st Contact Info) Description 11/20/2019 1:00 PM EDT - 11/20/2019 11:59 PM EDT Hospital Encounter [facility] [address] [place] [address] Guanakito Stroud MD 1700 [facility] [address] [place] [address] Visit for screening mammogram Discharge Disposition: Home [...] SCREENING DIGITAL TOMOSYNTHESIS BILATERAL W CAD Routine 11/20/2019 1:22 PM EDT Visit for screening mammogram documented in this encounter Results * (ABNORMAL) Mammo Screening Digital Tomosynthesis Bilateral With CAD (11/20/2019 1:22 PM EDT) Anatomical Region Laterality Modality Breast N/A Mammography 11/21/2019 4:20 PM EDT Impressions 11/21/2019 4:20 PM EDT Interval development of a 1.1 cm mass in the left periareolar region. ACR BI-RADS CATEGORY: ??0, INCOMPLETE: ?? NEED ADDITIONAL IMAGING EVALUATION RECOMMENDATION: Recommend ultrasound evaluation of a 1.1 cm mass located in the left upper outer quadrant periareolar region. CAD was utilized. The standard false-negative rate [...] the additional imaging evaluation. Physicians Order Diagnostic Breast Ultrasound Diagnosis: Abnormal Screening Mammogram This report was finalized on 11/21/2019 4:[address] Ilda Bryant MD. Narrative 11/21/2019 4:20 PM EDT EXAMINATION: ??BILATERAL SCREENING DIGITAL MAMMOGRAM WITH TOMOSYNTHESIS: CLINICAL INDICATION: ??54-year-old patient presents for routine screening mammogram. She has no reported breast complaints. She reports a family history of breast cancer in her mother. TECHNIQUE: Low dose full field digital breast tomosynthesis imaging was performed with 2D and 3D acquisitions consisting of bilateral CC and MLO views. COMPARISON: 11/21/2018, 11/02/2017, 06/30/2017, 09/27/2016 FINDINGS:There are scattered areas of fibroglandular density. There are stable bilateral oval isodense masses all measuring less than 1 cm. There has, however, been interval development of a 1.1 cm oval isodense mass with partially obscured borders in the left upper outer quadrant/periareolar region. No spiculated masses, architectural distortion or suspicious calcifications are seen. us Guanakito Stroud MD IMG MAMMOGRAPHY ORDERABLES Final Result documented in this encounter Visit Diagnoses Diagnosis Visit for screening mammogram documented in this encounter Care Teams Clinical Data Management Manager Relationship Specialty Start Date End Date Toni Knight MD [address] [facility] [address] [place] [address] PCP - General Family Medicine 09/16/16 documented as of this encounter
--- OUTSIDE RECORDS SUMMARY | 2024-08-20 08:49 | XMS_ITS | Encounter Summary ---
Author Organization [facility] Address [address] [place] [address] Care Team Providers Care Face Hardener Name Role Phone Unavailable Primary Care Provider Unavailabl e Encounter Details Date Type Department Care Team (Late st Contact Info) Description 10/02/2012 Historical Mammograp hy Encounter [facility] [address] [place] [address] Interface, See Report Social History [...] Associated Diagnosis Comments MAMMO HISTORICAL RESULT Routine 10/02/2012 9:37 AM EST documented in this encounter Results * MAMMO HISTORICAL RESULT (10/02/2012 9:37 AM EST) Anatomical Region Laterality Modality Breast Mammography 10/02/2012 9:37 AM EST Narrative 10/02/2012 5:40 PM EST ?[facility] ? [address] ??[place], [place] [address] ? NAME: LYNNELYRIC BURGOS ? : ??[birth year] ??MR#: [id number] ? LOC: ?? CO ? AGE: 47Y ?? Pt type: CO ?Exam Date: 10/02/12937 ? SEX: F ?? AN#:[id number] ?Ck-in#: [id number] ? HILDA,PIPPA W ? [address] ? [address] ? [place] ?[place] ?[address] ? Chk-in # ?? Order ?Exam ?[id number] ?? 0001 ? [id number] ??BC MAMM SCREEN BILAT DIG PNL ? Ord Diag: RTN MMG ? BILATERAL SCREENING MAMMOGRAM: ?? HISTORY: 47-year-old patient with no personal history of breast cancer and no current breast complaints. Her mother was diagnosed with breast cancer at approximately age 65. ?? TECHNIQUE: Routine bilateral CC and MLO digital mammographic images were obtained. ??A laterally exaggerated right CC view was also obtained. ?? Comparison: 09/27/11, 09/28/10, 03/24/10, 08/20/09, 07/23/09, 01/23/08, 03/07/06 and 11/11/04. ?? FINDINGS: The breasts are heterogeneously dense. The bilateral fibroglandular pattern is stable. There are partially obscured masses located in the right upper inner quadrant and left 12:00 region. Additional imaging is recommended. Other bilateral nodular asymmetries are stable in appearance. No significant change is noted in scattered and clustered bilateral punctate and amorphous calcifications. ?? IMPRESSION: Partially obscured masses in the right upper inner quadrant and left 12:00 region. ?? RECOMMENDATION: ?? Bilateral CC and MLO focal compression views and bilateral ML views. ?? BI-RADS CATEGORY 0, INCOMPLETE. ??NEEDS ADDITIONAL IMAGING EVALUATION. ?? The patient needs additional imaging. ??She will be contacted by our ? FINAL ?CONTINUED ?Page ??1 ? RADIOLOGY REPORT ?[facility] ? [address] ??[place], [place] [address] ? NAME: LYRIC VALENCIA ? : ??65 ??MR#: [id number] ? LOC: ?? CO ? AGE: 47Y ?? Pt type: CO ?Exam Date: 10/02/12937 ? SEX: F ?? AN#:[id number] ?Ck-in#: [id number] ? HILDAPIPPA W ? [address] ? [address] ? [place] ?[place] ?[address] ? Checkin-Exam Code Summary ? [id number] office to schedule an appointment for the additional studies. ??Please accept this as an order. ?? iCAD was utilized. ?? The standard false-negative rate of mammography is between 10 and 25%. Complex patterns or increased breast density will markedly elevate the false-negative rate of mammography. ? A letter, in lay terminology, with the results of this exam will be mailed to the patient. ?/READ BY/ ARCELIA PEREZ ?/Released By/ ARCELIA PEREZ ?Released By Date/Time: ??01/21/13 1731 ?Purchasing Expeditor: ??MM ? FINAL ? Page ??2 ? RADIOLOGY REPORT us See Report Interface IMG MAMMOGRAPHY ORDERABLES Final Result documented in this encounter Visit Diagnoses Not on filedocumented in this encounter
--- OUTSIDE RECORDS SUMMARY | 2024-08-20 08:49 | XMS_ITS | Encounter Summary ---
Author Organization [facility] Address [address] [place] [address] Care Team Providers Care Commercial Instructor Supervisor Name Role Phone Toni Knight MD Primary Care Provider Reason for Visit * Reason Comments Follow-up Left Knee Pain, disc uss repeat cortisone injection, last 12/31/20 Pain Initial Evaluation Encounter Details Date Type Department Care Team (Late st Contact Info) Description 08/03/2021 3:50 PM EST Office Visit [facility] [address] [place] [address] Maulik Carrillo MD [address] [place] [address] Primary osteoarthritis of right knee (Primary Dx); Primary osteoarthritis of left knee Social History Tobacco Use Types Packs/Day Years Used Date Smoking Tobacco: Former Cigarettes 2014 Smokeless Tobacco: Never Alcohol Use Standard Drinks/Week Comments Yes 0 (1 standard drink = 0.6 oz pur e alcohol) occasional/no abuse [facility] - Occupational Stress [...] Sign Reading Time Taken Comments Blood Pressure 131/81 08/03/2021 3:33 PM EST Pulse 91 08/03/2021 3:33 PM EST Temperature - - Respiratory Rate - - Oxygen Saturation - - Inhaled Oxygen Concentration - - Weight 109 kg (240 lb) 08/03/2021 3:33 PM EST Height 167.6 cm (5' 5.98 ) 08/03/2021 3:33 PM ES T Body Mass Index 38.76 08/03/2021 3:33 PM EST documented in this encounter Progress Notes * Maulik Carrillo MD - 08/03/2021 3:50 PM ESTSummary: 85 Images from the original note were not included. [facility] [place] Subjective Chief Complaint Patient presents with ??? Right Knee - Pain, Initial Evaluation ??? Follow-up Left Knee Pain, discuss repeat cortisone injection, last 12/31/20 HPI Zaida Peralta is a 56 y.o. female who presents with new problem of: right knee pain. Patient also wishes to discuss cortisone injection of Left Knee which was extremely helpful on 12/31/20. Onset: atraumatic and gradual in nature. The issue has been ongoing for 6 month(s). Pain is a 6/10 on the pain scale. Pain is described as stabbing. Associated symptoms include pain and swelling. The pain is worse with walking, sitting, climbing stairs, sleeping and working; resting and ice improve the pain. Previous treatments have included: NSAIDS. Left knee is doing well today. I have reviewed the following portions [...] cells of undetermined significance (ASC-US) Pap 07/23/09. salazar colpo performed 08/20/09..no lesions seen..Nabothian cyst at [...] Years since quittin.8 ??? Smokeless tobacco: Never Used Substance and [...] Product (ALIGN PO) Take by mouth. ??? ogxuxa-cplbkmcuy-qnrjzxgas sulfates (Suprep Bowel Prep Kit) 17.5-3.13-1.6 GM/177ML solution oral solution Take 1 bottle by mouth Take As Directed. Follow instructions that were mailed to your home. If you didn't receive these call [phone]. 2 bottle 0 No current facility-administered medications on file prior to visit. Allergies Allergen Reactions ??? Bactrim [Sulfamethoxazole-Trimethoprim] Other (See Comments) Drug fever ??? Keflex [Cephalexin] Other (See Comments) Drug fever Review of Systems Constitutional: Negative. HENT: Negative. Eyes: Negative. Respiratory: Positive for apnea. Cardiovascular: Negative. Gastrointestinal: Negative. Endocrine: Negative. Genitourinary: Negative. Musculoskeletal: Positive for arthralgias, gait problem and joint swelling. Negative for back pain. Skin: Negative. Allergic/Immunologic: Negative. Hematological: Negative. Psychiatric/Behavioral: Negative. Objective Physical Exam BP 131/81 Pulse 91 Ht 167.6 cm (65.98 ) Wt 109 kg (240 lb) BMI 38.76 kg/m?? Body mass index is 38.76 kg/m??. General: Mental Status: Alert Appearance: Cooperative, in no acute distress Build and Nutrition: Obese by BMI female Orientation: Alert and oriented to person, place and time Posture: Normal Gait: Mildly antalgic on the right Integument: Right knee: no skin lesions, no rash, no ecchymosis Left knee: no skin lesions, no rash, no ecchymosis Lower Extremities: Right Knee: Tenderness: Medial and lateral joint line tenderness Effusion: 1+ Swelling: None Crepitus: Positive Atrophy: None Range [...] varus Imaging/Studies Imaging Results (Last 24 Hours) Procedure Component Value Units Date/Time XR Knee 4+ View Bilateral [[id number]] Resulted: 08/03/211611 Updated: 08/03/211613 Narrative: Right Knee Radiographs Indication: right knee pain Views: Standing AP's and skiers of both knees, with lateral and sunrise views of the right knee Comparison: AP view only from 03/05/2020 Findings: Bwpp-aq-gizi contact medial compartment, tricompartmental degeneration, no acute bony abnormalities. No unusual bony features. Left Knee Radiographs Indication: left knee pain Views: Standing AP's and skiers of both knees, with lateral and sunrise views of the left knee Comparison: 03/05/2020 Findings: Rjta-ok-xmyp contact medial compartment, tricompartmental degeneration, no acute bony abnormalities. Worsening compared to previous imaging. No unusual bony features. Assessment and Plan Diagnoses and all orders for this visit: 1. Primary osteoarthritis of right knee (Primary) - Cancel: XR Knee 4+ View Right - XR Knee 4+ View Bilateral - Large Joint Arthrocentesis: R knee 2. Primary osteoarthritis of left knee - XR Knee 4+ View Left 1. Primary osteoarthritis of right knee 2. Primary osteoarthritis of left knee I reviewed my findings with the patient today. She has bilateral knee arthritis, but the right kneeis bothering her today, the left is doing fine. I offered her an injection for the right knee, and she wished to proceed. Ultimately she is a candidate for knee replacement surgery in the future whenher symptoms warrant, but we would like to get his many years out of her stebbins knees as we can. Procedure Note: The potential benefits of performing [...] joint. The patient tolerated the procedurewell, experiencing 85% improvement a few minutes following the injection. There were no complications. Band-Aid was applied to the injection site. Post-procedural instructions were given to the patient and/or their caregiver. Return in about 4 months (around 12/01/2021). Maulik Carrillo MD 08/03/21 16:40 EST * Payal Lafleur R.T.(R) - 08/03/2021 3:50 PM ESTAssociated Order(s): Large Joint Arthrocentesis: R knee Procedure Large Joint Arthrocentesis: R knee Date/Time: 08/03/2021 4:22 PM Consent given by: patient Site marked: site marked Timeout: Immediately prior to procedure a time out was called to verify the correct patient, procedure, equipment, family support coordinator and site/side marked as required Supporting Documentation [...] Type Priority Associated Diagnoses Orde r Schedule XR Knee 4+ View Left Imaging Routine Primary osteoarthritis of left knee Ordered: 08/03/2021 documented as of this encounter Procedures Procedure Name Priority Date/Time Associated Diagnosis Comments DE ARTHROCENTESIS ASPIR&/INJ MAJOR JT/BURSA W/O US Routine 08/03/2021 4:22 PM EST Primary osteoarthritis of right knee XR KNEE 4+ VW BILATERAL Routine 08/03/2021 3:53 PM EST Primary osteoarthritis of right knee documented in this encounter Results * DE ARTHROCENTESIS ASPIR&/INJ MAJOR JT/BURSA W/O US (08/03/2021 4:22 PM EST) Narrative Payal Lafleur R.T.(R) - 08/03/2021 4:22 PM EST Payal Lafleur R.T.(R) ? 08/03/2021 ??4:41 PM Large Joint Arthrocentesis: R knee Date/Time: 08/03/2021 4:22 PM Consent given by: patient Site marked: site marked Timeout: Immediately prior to procedure a time out was called to verify the correct patient, procedure, equipment, family support coordinator and site/side marked as required Supporting Documentation [...] MD PROCEDURE/MINOR SURGICAL ORDER ELIJAH Final Result * XR Knee 4+ View Bilateral (08/03/2021 3:53 PM EST) Anatomical Region Laterality Modality Lower Extremities, Knee Bilateral Xray Narrative 08/03/2021 4:14 PM EST Right Knee Radiographs Indication: right knee pain Views: Standing AP's and skiers of both knees, with lateral and sunrise views of the right knee Comparison: AP view only from 03/05/2020 Findings: Ubqs-zs-irvx contact medial compartment, tricompartmental degeneration, no acute bony abnormalities. ??No unusual bony features. Left Knee Radiographs Indication: left knee pain Views: Standing AP's and skiers of both knees, with lateral and sunrise views of the left knee Comparison: 03/05/2020 Findings: Bqph-hj-rezf contact medial compartment, tricompartmental degeneration, no acute bony abnormalities. ??Worsening compared to previous imaging. ??No unusual bony features. Maulik Carrillo MD IMG DIAGNOSTIC IMAGING ORDERAB LES Final Result documented in this encounter Visit Diagnoses Diagnosis Primary osteoarthritis of right knee- Primary Primary osteoarthritis of left knee documented in this encounter Administered Medications Inactive Administered Medications - up to 3 most recent administrations Medication Order MAR Action Action Date Dose Rate Site ropivacaine (NAROPIN) 0.5 % injection 4 mL 4 mL, One-Time Injection, Starting on Tue08/03/21 at 1622, For 1 doseIndications:Primary osteoarthritis of right knee Given 08/03/2021 4:22 PM EST 4 mL triamcinolone acetonide (KENALOG-40) injection 40 mg 40 mg, One-Time Injection, Starting on Tue08/03/21 at 1622, For 1 doseIndications:Primary osteoarthritis of right knee Given 08/03/2021 4:22 PM EST 40 mg documented in this encounter Care Teams Commercial Instructor Supervisor Relationship Specialty Start Date End Date Toni Knight MD [address] [facility] [address] [place] [address] PCP - General Family Medicine 09/16/16 documented as of this encounter
--- OUTSIDE RECORDS SUMMARY | 2024-08-20 08:50 | XMS_ITS | Encounter Summary ---
Author Organization [facility] Address [address] [place] [address] Care Team Providers Care Customer Resolution Specialist Name Role Phone Unavailable Primary Care Provider Unavailabl e Encounter Details Date Type Department Care Team (Late st Contact Info) Description 03/16/2006 Historical Mammograp hy Encounter [facility] HISTORICAL CONV [address] [place] [address] Interface, See Report Social History [...] Associated Diagnosis Comments MAMMO HISTORICAL RESULT Routine 03/16/2006 1:57 PM EDT documented in this encounter Results * MAMMO HISTORICAL RESULT (03/16/2006 1:57 PM EDT) Anatomical Region Laterality Modality Breast Mammography 03/16/2006 1:57 PM EDT Narrative 03/17/2006 4:13 PM EDT ? [address] ??[place], [place] [address] ? NAME: LYRIC VALENCIA ? : ??65 ??MR#: [id number] ? LOC: ?? DIS ? AGE: 40Y ?? Pt type: CO ?Exam Date: 03/16/06 1445 ? SEX: F ?? AN#:[id number] ?Ck-in#: [id number] ? PIPPA STEVENS W ? [address] ? [address] ? [place] ?[place] [address] ? Chk-in # ?? Order ?Exam ?[id number] ?? 0002 ? [id number] ??BC MAMMOGRAM UNILATERAL DIAGNOSTI*L ? Ord Diag: LT. ADD VIEWS ? LEFT DIAGNOSTIC MAMMOGRAM: ?? On second review of the patient's digital mammogram following the ultrasound, some architectural distortion was noted in the retroareolar region of the left breast. ??Spot compression of this shows no reproducible architectural distortion. ?? Bi-Rads II, benign. ?? The findings were discussed with the patient at the time of her office visit and a letter with these findings was given to the patient. ?/READ BY/ IWONA NICKERSON ?/Released By/ YOSVANY MCFARLANE ?Released By Date/Time: ??03/17/061606 ?Engagement Lead: ??JBW ? FINAL ? Page ??1 ? RADIOLOGY REPORT us See Report Interface IMG MAMMOGRAPHY ORDERABLES Final Result documented in this encounter Visit Diagnoses Not on filedocumented in this encounter
--- OUTSIDE RECORDS SUMMARY | 2024-08-20 08:50 | XMS_ITS | Encounter Summary ---
Author Organization [facility] Address [address] [place] [address] Care Team Providers Care Inside Barrel Polisher Name Role Phone Unavailable Primary Care Provider Unavailabl e Encounter Details Date Type Department Care Team (Late st Contact Info) Description 01/23/2008 Historical Mammograp hy Encounter [facility] HIST[facility] CONV [address] [place] [address] Interface, See Report Social History [...] Associated Diagnosis Comments MAMMO HISTORICAL RESULT Routine 01/23/2008 1:53 PM EDT documented in this encounter Results * MAMMO HISTORICAL RESULT (01/23/2008 1:53 PM EDT) Anatomical Region Laterality Modality Breast Mammography 01/23/2008 1:53 PM EDT Narrative 01/24/2008 8:10 AM EDT ?[facility] ? [address] ??[place], [place] [address] ? NAME: LYRIC PERALTA ? : ??[birth year] ??MR#: [id number] ? LOC: ?? DIS ? AGE: 42Y ?? Pt type: CO ?Exam Date: 01/23/08 1354 ? SEX: F ?? AN#:[id number] ?Ck-in#: [id number] ? HILDA,PIPPA W ? [address] ? [address] ? [place] ?[place] ?[address] ? Chk-in # ?? Order ?Exam ?[id number] ?? 0001 ? [id number] ??BC MAMM DIAG BILAT DIG PNL ? Ord Diag: LT BR LUMP ? HISTORY: ??The patient is 42 years old and can palpate nodularity in the left breast. ??She has had cysts in the past. ??Her mother was diagnosed with breast cancer at 65 and a cousin in her early 30's. ?? BILATERAL DIAGNOSTIC DIGITAL MAMMOGRAM: ?? FILM COMPARISON: 03/07/06. ?? TECHNIQUE: ??CC and MLO views of both breasts were performed plus left CC and MLO spot compression views. ?? FINDINGS: ??The breast parenchyma is heterogeneously dense in a patchy distribution. ?? There is an oval, 1.9 cm circumscribed nodule superficially at the 1:30 position of the left breast correlating with the palpable nodularity as marked by a triangular marker. ??Multiple other circumscribed nodules are scattered in the left breast and the pattern has changed compared to the prior exam. ??Bilateral breast ultrasound is recommended. ?? Benign bilateral axillary lymph nodes are identified. ??No spiculated mass or suspicious cluster of microcalcifications is seen. ?? IMPRESSION: ??Bilateral mammographic nodularity including a nodule palpable in the left breast. ?? RECOMMENDATION: ??Bilateral breast ultrasound is recommended. ?? Bi-Rads Category 0, Incomplete. ??Needs additional imaging evaluation. Please accept this as sufficient as an order for additional imaging. ? FINAL ?CONTINUED ?Page ??1 ? RADIOLOGY REPORT ?[facility] ? [address] ??[place], [place] [address] ? NAME: LYRIC PERALTA ? : ??[birth year] ??MR#: [id number] ? LOC: ?? DIS ? AGE: 42Y ?? Pt type: CO ?Exam Date: 01/23/08 1354 ? SEX: F ?? AN#:[id number] ?Ck-in#: [id number] ? HILDA,PIPPA W ? [address] ? [address] ? [place] ?[place] ?[address] ? Checkin-Exam Code Summary ? [id number] ICAD was utilized. ?? A copy of this report in lay terminology has been sent to the patient. ?/READ BY/ JASE L ATKINS ?/Released By/ JASE L ATKINS ?Released By Date/Time: ??14/08 0802 ?Workers' Compensation Magistrate: ??DME ? FINAL ? Page ??2 ? RADIOLOGY REPORT us See Report Interface IMG MAMMOGRAPHY ORDERABLES Final Result documented in this encounter Visit Diagnoses Not on filedocumented in this encounter
--- OUTSIDE RECORDS SUMMARY | 2024-08-20 08:50 | XMS_ITS | Encounter Summary ---
Author Organization [facility] Address [address] [place] [address] Care Team Providers Care Tourist Cabin Keeper Name Role Phone Unavailable Primary Care Provider Unavailabl e Encounter Details Date Type Department Care Team (Late st Contact Info) Description 03/07/2006 Historical Mammograp hy Encounter [facility] HISTORICAL CONV [address] [place] [address] Interface, See Report Social History [...] Associated Diagnosis Comments MAMMO HISTORICAL RESULT Routine 03/07/2006 11:05 AM EDT documented in this encounter Results * MAMMO HISTORICAL RESULT (03/07/2006 11:05 AM EDT) Anatomical Region Laterality Modality Breast Mammography 03/07/2006 11:0 5 AM EDT Narrative 03/08/2006 1:32 PM EDT ? [address] ??[place], [place] [address] ? NAME: LYRIC VALENCIA ? : ??65 ??MR#: [id number] ? LOC: ?? DIS ? AGE: 40Y ?? Pt type: CO ?Exam Date: 03/07/061106 ? SEX: F ?? AN#:[id number] ?Ck-in#: [id number] ? HILDA,PIPPA W ? [address] ? [address] ? [place] ?[place] ?[address] ? Chk-in # ?? Order ?Exam ?[id number] ?? 0001 ? [id number] ??AB MAMMO SCREEN BILAT DIGITAL PNL ? Ord Diag: RTN MMG ? HISTORY: ??40 year old female who reports a family history of breast cancer in her mother in her 60s and her cousin in her 30s. ??The patient has had previous benign breast procedures. ??She reports no current breast complaints. ?? BILATERAL DIGITAL MAMMOGRAM: ?? COMPARISON USED: October 14, 2003. ?? TECHNIQUE: ??CC and MLO digital views of both breasts were performed. ??An additional right Jessica was performed (total 5 films). ?? FINDINGS: ??There is new nodularity to the breast parenchyma including a dominant nodule at nipple level in the lateral right breast on the CC and medially on the right breast on the CC as well. ??Cysts are suspected secondary to the shear number of nodular masses appreciated. ?? On the inverted images, it can be appreciated that there are scattered calcifications in both breasts. No worrisome clusters nor linear branching forms are seen. ?? IMPRESSION: Bi-Rads 0, incomplete. ??Needs additional imaging evaluation. Please accept this as sufficient as an order for additional imaging. The patient will be contacted by our office for the additional studies. ?? RECOMMENDATION: ??Full bilateral breast ultrasound is again recommended. The last bilateral breast ultrasound was performed on this patient in October 2003 but one is again indicated secondary to the overall change in appearance to the mammogram. ? FINAL ?CONTINUED ?Page ??1 ? RADIOLOGY REPORT ?[facility] ? [address] ??[place], [place] [address] ? NAME: LYRIC VALENCIA ? : ??[birth year] ??MR#: [id number] ? LOC: ?? DIS ? AGE: 40Y ?? Pt type: CO ?Exam Date: 03/07/06 1107 ? SEX: F ?? AN#:[id number] ?Ck-in#: [id number] ? PIPPA STEVENS W ? [address] ? [address] ? [place] ?[place] ?[address] ? Checkin-Exam Code Summary ? [id number] ?? The images were overread by iCAD. ?? A copy of this report in lay terminology has been sent to the patient. ?/READ BY/ YOSVANY MCFARLANE ?/Released By/ YOSVANY MCFARLANE ?Released By Date/Time: ??03/08/06 1321 ?Tennis Ball Cover Cementer: ??JBW ? FINAL ? Page ??2 ? RADIOLOGY REPORT us See Report Interface IMG MAMMOGRAPHY ORDERABLES Final Result documented in this encounter Visit Diagnoses Not on filedocumented in this encounter
--- NOTE | 2024-08-20 08:57 | P.PNANES_ITS ---
[facility] Disclaimer: The information contained in this section may have been updated after the patient was seen, as this information can be updated by other users. 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 MAIDA (obstructive sleep apnea) Hyperlipidemia Surgical History History of cardiac radiofrequency ablation History of tubal ligation History of tonsillectomy Family History Other Cancer Hypertension Thyroid disorder Social History (Updated 08/20/24 @ 08:40 by Caron Leon RN) Smoking Status: Former smoker alcohol intake: current alcohol intake frequency: holidays/special occasions only substance use type: denies use current occupational status: employed and other Travel in the last 8 weeks: None household members: significant other housing: house caffeine: Yes [facility] Anesthesia Checklist Patient Identification Patient Identification: Arm Band, Family and Verbal (Name & ) Structural Data Admitted From: Home Planned Operative Procedure/s: Colonoscopy Consent for Planned Operative Procedure(s) Verified: Yes Verified Documents: Surgical Consent and History and Physical NPO Status Verified Time NPO: 06:45 Chart Verification Results Verified: CBC, BMP and ECG Additional verifications Patient : No Anesthesia Reactions: No Cardiovascular Assessment Heart Sounds: S1 & S2 Pulse Rhythm: Irregular Peripheral Edema: No Airway Assessment Mallampati Score:: Class II C-Spine Mobility Assessed: Yes (FROM demonstrated) TMJ Mobility Assessed: Yes Dentition: Good Dentition (Nothing loose per pt.) Neurological Assessment Level of Consciousness: Awake, Alert, Appropriate and Follows Commands Hx Seizures: No Numbness or tingling in extremities: No Anesthesia Plan Anesthesia Risk discussed: Yes Anesthesia Plan: Verified ASA Class: III Anesthesia Type: MAC
--- NOTE | 2024-08-20 09:26 | P.HP_ITS ---
History of Present Illness *Admission Date: 08/20/24 *Reason for visit:: Surveillance colonoscopy secondary to personal history of adenomatous polyp *History of present illness: Mrs. Peralta is a 59-year-old female who is here for surveillance colonoscopy secondary to a personal history of adenomatous polyps. She had a colonoscopy in 2017 and had 2 polyps (tubular adenomas x 2) removed ([facility]?Mj Lai MD). The examination is deemed medically necessary for surveillance colonoscopy. The patient has been seen, interviewed and examined prior to the procedure by both myself and the anesthesia provider. [facility] Disclaimer: The information contained in this section may have been updated after the patient was seen, as this information can be updated by other users. 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 (Updated 08/20/24 @ 09:29 by Guillermo Baird II, MD) MAIDA (obstructive sleep apnea) Hyperlipidemia Surgical History History of cardiac radiofrequency ablation History of tubal ligation History of tonsillectomy Family History Other Cancer Hypertension Thyroid disorder Social History (Updated 08/20/24 @ 08:40 by Caron Leon RN) Smoking Status: Former smoker alcohol intake: current alcohol intake frequency: holidays/special occasions only substance use type: denies use current occupational status: employed and other Travel in the last 8 weeks: None household members: significant other housing: house caffeine: Yes Other 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 Have you received the Flu Vaccine for this season: Yes Have you received the Pneumonia Vaccine: No Review of Systems Review of Systems Review of systems (narrative): Negative *Cardiovascular Comments: Negative *Gastrointestinal Comments: Negative *Genitourinary Comments: Negative *Musculoskeletal Comments: Negative *Neurologic Comments: Negative Meds Home Medications and Allergies Home Medications ?Medication ?Instructions ?Recorded ?Confirmed ?Type omeprazole 40 mg capsule,delayed 40 mg PO DAILY GERD 04/08/21 08/20/24 History release sacrosidase 8,500 unit/mL oral 2 ml PO 5XD #1,200 mL 07/24/24 08/20/24 Rx solution (Sucraid) New Prescriptions to Start Prescriptions: Allergies Allergy/AdvReac Type Severity Reaction Status Date / Time cephalexin (From KEFLEX) Allergy Mild Hives Verified 08/20/24 08:40 sulfamethoxazole (From Allergy Mild Hives Verified 08/20/24 08:40 BACTRIM) trimethoprim (From BACTRIM) Allergy Mild Hives Verified 08/20/24 08:40 Sulfa (Sulfonamide Allergy Hives Verified 08/20/24 08:40 Antibiotics) Exam Data for Last 24 hours Vital signs and Labs for Last 24 Hours: Temp Pulse Resp BP Pulse Ox O2 Del Method 98.1 F 76 18 158/77 H 95 Room Air 08/20/24 08:43 08/20/24 08:43 08/20/24 08:43 08/20/24 08:43 08/20/24 08:43 08/20/24 08:43 *Routine HEENT Exam Head: Present normocephalic Eye: Present EOMI and PERRL ENT: Present mucous membranes moist *Routine Neck Exam Neck: Present supple *Routine Respiratory Exam Respiratory: Present CTA bilaterally *Routine Cardiovascular Exam Cardiovascular: Present RRR *Routine Abdominal Exam Abdominal: Present soft and normoactive bowel sounds; Absent tenderness *Routine Rectal Exam Rectal:: deferred *Routine Genitalia Exam Genitalia:: deferred *Routine Extremities Exam Extremities: Absent cyanosis, clubbing or edema *Routine Skin Exam Skin: Present warm; Absent rash *Routine Neurological Exam Neurological: Present alert and oriented X3 Assessment and Plan *Assessment and plan (1) Personal history of adenomatous and serrated colon polyps: Status: Acute Category: Medical Code(s): Z86.0101 - Personal history of adenomatous and serrated colon polyps Plan A/P: 1. Personal history of adenomatous colon polyps is the preprocedural diagnosis. The patient will be anesthetized/sedated using MAC sedation. The patient has been seen and examined. Cardiac and lung assessment prior to the examination is stable. Proceed with planned surveillance colonoscopy
--- NOTE | 2024-08-20 09:45 | P.PCN_ITS ---
[facility] Procedure Note Date: 08/20/24 Time: 09:45 Procedure Note:: Colonoscopy Procedure Report: Colonoscopy with cold snare polypectomy Endoscopist: Guillermo Baird II, MD Referring physician: Clau QUESADA Date of Procedure: August 20, 2024 Equipment: Olympus 190 variable stiffness pediatric colonoscope Sedation: MAC sedation Indication: Mrs. Peralta is a 59-year-old female who is here for follow-up surveillance colonoscopy. She did have a colonoscopy in 2017 ([facility] with Dr. Mj Lai) and had 2 polyps (tubular adenomas x 2) removed. The patient has had more longstanding bowel irregularity with constipation alternating with diarrhea. She does have some trapped gas, fullness, belching and lower abdominal discomfort. The patient did have negative celiac serologies. Her pancreatic fecal elastase testing was normal (greater than 800 mcg/g fecal elastase). Her CSID testing did show low sucrase activity. She did see the dietitian locally but did not get much instruction and does have motivation to understand low starch/sucrose diet. The patient reports no rectal bleeding, weight loss or family history of colon cancer. Procedure: Prior to the procedure, a history and physical exam was performed, and patient's medications and allergies were reviewed. The risks, benefits and alternatives of the sedation and procedure were discussed with the patient. All questions were answered and informed consent was obtained. The patient was brought to the procedure room. Patient identification and proposed procedure were verified by the physician and the nurse. The patient was placed in a left lateral decubitus position and the scope was passed under direct vision. Throughout the procedure, the patient's blood pressure, pulse, and oxygen saturations were monitored continuously. The colonoscopy was accomplished without difficulty. The patient tolerated the procedure well. Findings: On digital rectal examination there was normal rectal tone. There were no external hemorrhoids. The colonoscope was introduced through the anal canal to the rectum and advanced to the cecum. The ileocecal valve and appendiceal orifice were identified. The scope was advanced a short distance into the ileum which appeared grossly normal. The scope was then withdrawn into the colon. The cecum, ascending and transverse colon and mucosa were grossly normal. There were 2 polyps (transverse x 1 (5 mm) and descending x 1 (3 mm)). Both of these were removed via cold snare polypectomy. There were scattered diverticuli throughout the descending and sigmoid colon (LEFT colon). The rectum itself was normal. Upon retroflexion within the rectum there were grade 1-2 internal hemorrhoids. The preparation was excellent throughout with Wayne Preparation Score of 9. The cecal time was 12 minutes. Impression: 1. Diminutive colonic polyps x 2 2. Left-sided diverticulosis 3. Grade 1-2 internal hemorrhoids Plan: I will follow-up the polyp histology and recommend repeat surveillance colonoscopy again in 7 years. I would encourage continuation of the fiber bowel regimen (combined MiraLAX plus Citrucel) or alternative therapy for her IBS?C. I am also going to send her to a dietitian for CSID diet and continue Sucraid or Starchway.
== END 2024-08-20 10:33 | disposition home or self-care (01) ==
PROVIDERS: PCP Family Medicine; Visit Provider Internal Medicine Gastroenterology
PROC: (CPT 45385; principal; 2024-08-20 10:00)
DX: K63.5 Polyp of colon (principal); K57.30 Diverticulosis of large intestine without perforation or abscess without bleeding; K64.8 Other hemorrhoids; Z86.0101 Personal history of adenomatous and serrated colon polyps
CPT/HCPCS: 45385; J7120

== ENCOUNTER 2024-09-12 14:51 | Emergency (ER) | payer BC, SELFPAY ==
[2024-09-12 15:25] VITALS: BP 166/87; PULSE 87; RESP 20; TEMP 37.5; O2SAT 95; BMI 36.6
[2024-09-12 15:33] LABS: UTC Influenza A Antigen Negative (Negative); UTC Influenza B Antigen Negative (Negative)
--- NOTE | 2024-09-12 15:43 | EXP.UTC ---
Discharge Plan Disposition Patient Disposition: Home, Self-Care Condition: Good Prescriptions Prescriptions: New azithromycin [Zithromax] 250 mg tablet 250 mg PO UD DOSE PK Qty: 6 0RF Rx Instructions: Take two (2) tablets today, then one (1) tablet days #2 thru #5 benzonatate 100 mg capsule 100 mg PO TIDP PRN (Reason: Cough) Qty: 30 0RF methylprednisolone 4 mg Tablets,Dose Pack 4 mg PO DIRECTED 6 Days Qty: 21 0RF Rx Instructions: Take 1 pack as directed for 6 days oseltamivir [Tamiflu] 75 mg capsule 75 mg PO BID 5 Days Qty: 10 0RF No Action omeprazole 40 mg capsule,delayed release(DR/EC) 40 mg PO DAILY Referrals Follow up/Referrals: Toni Knight MD [Primary Care Provider] - See instructions Activity Restrictions/Add. Instructions Additional Instructions/Restrictions: Drink plenty of fluids. Take tylenol or ibuprofen for pain or fever. Take the medications as directed. Follow up with your regular doctor. GO TO THE ER FOR ANY WORSENING SYMPTOMS Clinical Impressions Clinical Impression: Acute bronchitis, Influenza A Stand Alone Forms Stand Alone Forms: Work/School Release Instructions Patient Instructions: Acute Bronchitis, DI for Acute Bronchitis, DI for Influenza -- Adult, Oseltamivir Print Language Print Language: Bruneian Discharge ED Provider: Khanh Alvarez [facility] General Stated complaint: cough,fever, body aches, headache Mode of Arrival: Ambulatory Source of Information: Patient Limitations: No Limitations Time Seen by Provider: 09/12/24 15:29 Description of Symptoms (Recalled from Triage Doc. by RN): COUGH, FEVER, BA, FATIGUE, QUIROZ, SORE THROAT HEENT Symptoms (Recalled from RN notes): Yes Resp Symptoms (Recalled from RN notes): Yes Skin Symptoms (Recalled from RN notes): No MS Symptoms (Recalled from RN notes): No Functional Status (Recalled from RN notes): WNL History of Present Illness Provider Complaint: He c/o sore throat for the past 2 days. Related Data Home Medications ?Medication ?Instructions ?Recorded ?Confirmed omeprazole 40 mg capsule,delayed 40 mg PO DAILY GERD 04/08/21 09/12/24 release Previous Rx's ?Medication ?Instructions ?Recorded azithromycin 250 mg tablet 250 mg PO UD DOSE PK #6 tabs 09/12/24 (Zithromax) benzonatate 100 mg capsule 100 mg PO TIDP PRN Cough #30 caps 09/12/24 methylprednisolone 4 mg tablets in 4 mg PO DIRECTED 6 days #21 tabs 09/12/24 a dose pack oseltamivir 75 mg capsule (Tamiflu) 75 mg PO BID 5 days #10 caps 09/12/24 Allergies Allergy/AdvReac Type Severity Reaction Status Date / Time cephalexin (From KEFLEX) Allergy Mild Hives Verified 08/22/24 11:29 sulfamethoxazole (From Allergy Mild Hives Verified 08/22/24 11:29 BACTRIM) trimethoprim (From BACTRIM) Allergy Mild Hives Verified 08/22/24 11:29 Sulfa (Sulfonamide Allergy Hives Verified 08/22/24 11:29 Antibiotics) Worker's Comp Is this a Worker's Comp case?: No [facility] Disclaimer: The information contained in this section may have been updated after the patient was seen, as this information can be updated by other users. 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 (Updated 09/12/24 @ 18:23 by Khanh Alvarez APRN) Bronchitis Contact dermatitis Sinusitis Headache Otitis media Pharyngitis MAIDA (obstructive sleep apnea) Hyperlipidemia Surgical History History of cardiac radiofrequency ablation History of tubal ligation History of tonsillectomy Family History Other Cancer Hypertension Thyroid disorder Social History Smoking Status: Former smoker alcohol intake: current alcohol intake frequency: holidays/special occasions only substance use type: denies use current occupational status: employed and other Travel in the last 8 weeks: None household members: significant other housing: house caffeine: Yes Have you lived/traveled outside US in past 30 days?: No Contact w/someone who lives/traveled outside US past 30 days?: No Exposure to someone with infectious disease in past 14 days?: No Do you have a fever (greater than 100.4 F or 38 C)?: Yes Have you tested positive for COVID-19: No Exposed to someone with COVID-19 in past 14 days?: No Do you have a sore throat?: No Do you have a cough?: Yes Do you have any weakness?: No Do you have any diarrhea?: No Are you experiencing any unusual bleeding?: No Do you have any muscle aches/pain?: Yes Do you have any abdominal pain?: No Are you experiencing loss of taste or smell?: No ROS Obtained: Yes All systems reviewed & no additional complaints except as documented Constitutional Constitutional: Reports chills and Reports fever(s) Eyes Eyes: Denies eye discharge ENT Ears, Nose, Mouth, and Throat: Reports as per HPI Cardiovascular Cardiovascular: Denies chest pain Respiratory Respiratory: Denies chest congestion and Reports cough Gastrointestinal Gastrointestingal: Reports nausea; Denies abdominal pain, constipation, cramping, diarrhea or vomiting Musculoskeletal Musculoskeletal: Denies arthralgias Integumentary/Breasts Skin/Breast: Denies rash Neurologic Neurologic: Denies paresthesias Physical Exam General General appearance: alert and in no apparent distress Head Head exam: atraumatic, normocephalic and normal inspection Eye Eye exam: Present normal appearance, PERRL and EOMI ENT ENT exam: Present mucous membranes moist and normal external ear exam Expanded ENT Exam TM/Canal exam: Bilateral TM: erythema and bulging Nose exam: Absent sinus tenderness Mouth exam: Present normal external inspection; Absent drooling Teeth exam: Present normal inspection Throat exam: Present tonsillar erythema, tonsillomegaly and tonsillar exudate Neck Neck exam: Present normal inspection, full ROM and trachea midline; Absent tenderness, meningismus or lymphadenopathy Chest Chest inspection: Present normal inspection and symmetric chest wall rise; Absent tenderness Respiratory Respiratory exam: Present normal lung sounds bilaterally; Absent respiratory distress, wheezes, stridor or accessory muscle use Cardiovascular Cardiovascular exam: Present regular rate and normal rhythm; Absent systolic murmur or diastolic murmur Abdominal Exam Abdominal exam: Present soft and normal bowel sounds; Absent distention, tenderness, guarding, rebound or rigidity Extremities Exam Extremities exam: Present normal inspection and normal capillary refill; Absent calf tenderness Back Exam Back exam: Present normal inspection and full ROM; Absent tenderness, CVA tenderness (R) or CVA tenderness (L) Neurological Exam Neurological exam: Present alert, oriented X3 and CN II-XII intact Psychiatric Psychiatric exam: Present normal affect and normal mood Skin Skin exam: Present warm, dry, intact and normal color Medical Decision Making Medical Records Medical records reviewed: No I reviewed the patient's medical records. Screening: Per USPSTF and CDC recommendations, given the prevalence of disease in our region, it is our hospital?s policy to screen for HIV and viral Hepatitis for all patients aged 18 and over and those with ongoing risk factors. Vinicio Inquiry Pt receiving controlled substance: No Vital Signs: 09/12/24 15:25 Temperature 99.5 F Temperature Source Oral Pulse Rate [Left Brachial] 87 Respiratory Rate 20 Blood Pressure [Left Arm] 166/87 H Blood Pressure Mean [Left Arm] 113 02 Sat by Pulse Oximetry 95 Lab Data Lab results reviewed: Yes I reviewed the patient's lab results. Lab Results 09/12/24 15:28: Influenza Type A Ag Negative, Influenza Type B Ag Negative
[2024-09-12] MEDS: ACETAMINOPHEN 325MG TAB 650 MG PO (15:48)
[2024-09-12 15:58] VITALS: BP 166/87; PULSE 87; RESP 20; TEMP 37.5
[2024-09-12 16:09] LABS: Coronavirus 19, PCR Not Detected (NotDetected); Influenza B, PCR Not Detected (NotDetected)
[2024-09-12 17:04] LABS: Influenza A, PCR Detected (NotDetected)
== END 2024-09-12 16:06 | disposition home or self-care (01) ==
PROVIDERS: Emergency Provider Nurse Practitioner Family; PCP Family Medicine
DX: J20.9 Acute bronchitis, unspecified (principal); J09.X2 Influenza due to identified novel influenza A virus with other respiratory manifestations; R50.9 Fever, unspecified; R05.9 Cough, unspecified; R53.83 Other fatigue; R51.9 Headache, unspecified; R11.0 Nausea
CPT/HCPCS: 87636; 87804; 99212; G0381

== ENCOUNTER 2024-10-07 10:10 | Emergency (ER) | payer BC, SELFPAY ==
[2024-10-07 10:56] VITALS: BP 168/62; PULSE 79; RESP 18; TEMP 36.9; O2SAT 96; BMI 36.3
[2024-10-07 11:05] LABS: UTC Strep Screen (Rapid) Negative (Negative)
--- NOTE | 2024-10-07 11:53 | EXP.UTC ---
Discharge Plan Disposition Patient Disposition: Home, Self-Care Condition: Good Prescriptions Prescriptions: New amoxicillin 875 mg tablet 875 mg PO BID 10 Days Qty: 20 0RF No Action omeprazole 40 mg capsule,delayed release(DR/EC) 40 mg PO DAILY Referrals Follow up/Referrals: Ezra Knight [Primary Care Provider] - See instructions Activity Restrictions/Add. Instructions Additional Instructions/Restrictions: Take medication as prescribed. Increase fluids and rest. If symptoms persist or worsen, return to clinic/PCP. Clinical Impressions Clinical Impression: URI (upper respiratory infection) Qualifiers: URI type: acute pharyngitis Pharyngitis/tonsillitis etiology: unspecified etiology Qualified Code(s): J02.9 - Acute pharyngitis, unspecified Instructions Patient Instructions: DI for Viral Upper Respiratory Infection -- Adult Print Language Print Language: Turkish Discharge ED Provider: Liberty Nicole [facility] [place] General Stated complaint: sore throat, body aches, fatigue Mode of Arrival: Ambulatory Source of Information: Patient Time Seen by Provider: 10/07/24 11:52 Description of Symptoms (Recalled from Triage Doc. by RN): SORE THROAT, SWOLLEN FEELING, QUIROZ, FATIGUE, BA, DRAINAGE, COUGH HEENT Symptoms (Recalled from RN notes): Yes Resp Symptoms (Recalled from RN notes): Yes Skin Symptoms (Recalled from RN notes): No MS Symptoms (Recalled from RN notes): No Functional Status (Recalled from RN notes): WNL History of Present Illness Provider Complaint: Pt reports that she has a sore throat, yellow sinus drainage, cough, fatigue, body aches, and feels swollen. Related Data Home Medications ?Medication ?Instructions ?Recorded ?Confirmed omeprazole 40 mg capsule,delayed 40 mg PO DAILY GERD 04/08/21 10/07/24 release Previous Rx's ?Medication ?Instructions ?Recorded amoxicillin 875 mg tablet 875 mg PO BID 10 days #20 tabs 10/07/24 Allergies Allergy/AdvReac Type Severity Reaction Status Date / Time cephalexin (From KEFLEX) Allergy Mild Hives Verified 08/22/24 11:29 sulfamethoxazole (From Allergy Mild Hives Verified 08/22/24 11:29 BACTRIM) trimethoprim (From BACTRIM) Allergy Mild Hives Verified 08/22/24 11:29 Sulfa (Sulfonamide Allergy Hives Verified 08/22/24 11:29 Antibiotics) Worker's Comp Is this a Worker's Comp case?: No [facility] Disclaimer: The information contained in this section may have been updated after the patient was seen, as this information can be updated by other users. 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 (Updated 10/07/24 @ 12:07 by Liberty Nicole APRN) Bronchitis Contact dermatitis Sinusitis Headache Otitis media Pharyngitis MAIDA (obstructive sleep apnea) Hyperlipidemia Surgical History History of cardiac radiofrequency ablation History of tubal ligation History of tonsillectomy Family History Other Cancer Hypertension Thyroid disorder Social History Smoking Status: Former smoker alcohol intake: current alcohol intake frequency: holidays/special occasions only substance use type: denies use current occupational status: employed and other Travel in the last 8 weeks: None household members: significant other housing: house caffeine: Yes Have you lived/traveled outside US in past 30 days?: No Contact w/someone who lives/traveled outside US past 30 days?: No Exposure to someone with infectious disease in past 14 days?: No Do you have a fever (greater than 100.4 F or 38 C)?: No Have you tested positive for COVID-19: No Exposed to someone with COVID-19 in past 14 days?: No Do you have a sore throat?: Yes Do you have a cough?: No Do you have any weakness?: Yes Do you have any diarrhea?: No Are you experiencing any unusual bleeding?: No Do you have any muscle aches/pain?: Yes Do you have any abdominal pain?: No Are you experiencing loss of taste or smell?: No ROS Obtained: Yes All systems reviewed & no additional complaints except as documented Constitutional Constitutional: Reports system reviewed and no additional complaints, except as documented, Reports body ache, Reports chills, Reports fatigue and Reports headache(s) Eyes Eyes: Reports system reviewed and no additional complaints, except as documented ENT Ears, Nose, Mouth, and Throat: Reports system reviewed and no additional complaints, except as documented, Reports headache(s), Reports nasal congestion, Reports nasal discharge, Reports odynophagia, Reports post nasal drip and Reports sore throat Cardiovascular Cardiovascular: Reports system reviewed and no additional complaints, except as documented Respiratory Respiratory: Reports system reviewed and no additional complaints, except as documented and Reports non-productive cough Gastrointestinal Gastrointestingal: Reports system reviewed and no additional complaints, except as documented and odynophagia Genitourinary Female Genitourinary: Reports system reviewed and no additional complaints, except as documented Musculoskeletal Musculoskeletal: Reports system reviewed and no additional complaints, except as documented Integumentary/Breasts Skin/Breast: Reports system reviewed and no additional complaints, except as documented Neurologic Neurologic: Reports system reviewed and no additional complaints, except as documented and Reports headache(s) Endocrine Endocrine: Reports system reviewed and no additional complaints, except as documented and Reports fatigue Hematologic/Lymphatic Henatologic/Lymphatic: Reports system reviewed and no additional complaints, except as documented Allergic/Immunologic Allergic/Immunologic: Reports system reviewed and no additional complaints, except as documented Physical Exam General General appearance: alert Comment: ill appearing Head Head exam: atraumatic and normocephalic Eye Eye exam: Present normal appearance Expanded ENT Exam External ear exam: Present normal external inspection Nose exam: Present sinus tenderness Nasal speculum exam: Bilateral: purulent discharge Mouth exam: Present normal external inspection Teeth exam: Present normal inspection Throat exam: Present tonsillar erythema and tonsillomegaly Neck Neck exam: Present normal inspection Chest Chest inspection: Present normal inspection and symmetric chest wall rise Respiratory Respiratory exam: Present normal lung sounds bilaterally Cardiovascular Cardiovascular exam: Present regular rate and normal rhythm Abdominal Exam Abdominal exam: Present soft Extremities Exam Extremities exam: Present normal inspection Back Exam Back exam: Present normal inspection Neurological Exam Neurological exam: Present alert and oriented X3 Psychiatric Psychiatric exam: Present normal affect and normal mood Skin Skin exam: Present warm, dry and intact Lymphatic Lymphatic Findings: no adenopathy Medical Decision Making Medical Records Screening: Per USPSTF and CDC recommendations, given the prevalence of disease in our region, it is our hospital?s policy to screen for HIV and viral Hepatitis for all patients aged 18 and over and those with ongoing risk factors. Vinicio Inquiry Pt receiving controlled substance: No Vinicio was queried for this patient: No Vital Signs: 10/07/24 10:56 Temperature 98.4 F Temperature Source Oral Pulse Rate [Left Radial] 79 Respiratory Rate 18 Blood Pressure [Left Arm] 168/62 H Blood Pressure Mean [Left Arm] 97 02 Sat by Pulse Oximetry 96 Lab Data Lab results reviewed: Yes I reviewed the patient's lab results. Lab Results 10/07/24 11:00: Strep Scn Rapid Clinic Negative Orders (Tests/Meds): ORDERS Category Date Time Status Strep Screen Confirmation Stat Micro 10/07/24 11:00 Received
[2024-10-07 12:11] VITALS: BP 168/62; PULSE 79; RESP 18; TEMP 36.9
[2024-10-07 18:37] LABS: Coronavirus 19, PCR Not Detected (NotDetected); Influenza A, PCR Not Detected (NotDetected); Influenza B, PCR Not Detected (NotDetected)
== END 2024-10-07 12:12 | disposition home or self-care (01) ==
PROVIDERS: Emergency Provider Nurse Practitioner Family; PCP Family Medicine
DX: J02.9 Acute pharyngitis, unspecified (principal)
CPT/HCPCS: 87636; 87880; 99213; G0381

== ENCOUNTER 2024-10-20 07:21 | Outpatient (CLI) | payer BC, SELFPAY ==
[2024-10-20 08:23] LABS: Basophils # 0.1 K/mm3 (0-0.2); Basophils % 1.1 % (0.1-2.0); Eosinophils # 0.2 K/mm3 (0.0-0.4); Eosinophils % 2.8 % (0.1-12.0); Hematocrit 41.7 % (37.0-47.0); Hemoglobin 14.2 g/dL (12.2-16.2); Lymphocytes # 1.9 K/mm3 (0.7-4.5); Lymphocytes % 28.9 % (10-50); Mean Corpuscular HGB Conc 34.1 g/dL (31.8-35.4); Mean Corpuscular Hemoglobin 31.3 pg (27.0-31.2); Mean Corpuscular Volume 91.9 fl (81-99); Mean Platelet Volume 10.6 fl (7.4-10.4); Monocytes # 0.4 K/mm3 (0.1-1.0); Platelet Count 218 K/mm3 (142-424); Red Blood Count 4.54 M/mm3 (4.20-5.40); Red Cell Distribution Width 13.2 % (11.5-17.5); White Blood Count 6.5 K/mm3 (4.8-10.8)
[2024-10-20 08:38] LABS: Albumin Level 4.4 g/dl (3.5-5.0); Chloride 108 mmol/L (98-107); Potassium 4.6 mmoL/L (3.5-5.1); Sodium 141 mmol/L (136-145)
[2024-10-20 08:40] LABS: Blood Urea Nitrogen 15 mg/dl (7-17)
[2024-10-20 08:41] LABS: Alanine Aminotransferase 27 U/L (12-78); Albumin/Globulin Ratio 2.1 (1.1-1.8); Alkaline Phosphatase 57 U/L (38-126); Anion Gap 11.6 mEq/L (5-15); Aspartate Amino Transferase 26 U/L (14-36); Bilirubin,Total 0.5 mg/dl (0.2-1.3); Calcium 9.7 mg/dl (8.4-10.2); Carbon Dioxide 26 mmol/L (22.0-30.0); Estimated Glomerular Filt Rate 86 ml/min (>60); GFR (African American) 104 ML/MIN (>60); Globulin 2.1 g/dL (1.3-3.2); Glucose 107 mg/dl (74-100); Iron 82 ug/dL (37-170); Magnesium 1.8 mg/dl (1.6-2.3); Total Protein,Serum 6.5 g/dl (6.3-8.2)
[2024-10-20 08:49] LABS: Erythrocyte Sedimentation Rate 15 mm/hr (0-30)
[2024-10-20 08:58] LABS: 25-OH Vitamin D, Total 37.6 ng/mL (30-100); Free T4 (Free Thyroxine) 1.02 ng/dl (0.78-2.19)
[2024-10-20 09:12] LABS: Thyroid Stimulating Hormone 1.45 uIU/mL (0.465-4.68)
[2024-10-20 09:36] LABS: Uric Acid 5.2 mg/dl (2.5-6.2)
[2024-10-20 10:26] LABS: Vitamin B12 295 pg/mL (239-931)
[2024-10-21 08:07] LABS: RA Latex Turbid. 11.6 IU/mL (<14.0)
[2024-10-22 16:09] LABS: Antinuclear Antibodies, IFA Negative (.)
== END 2024-10-20 23:59 | disposition home or self-care (01) ==
LOC: LAB 07:23
PROVIDERS: PCP Family Medicine; Visit Provider Nurse Practitioner Family
DX: R20.2 Paresthesia of skin (principal); M25.50 Pain in unspecified joint; K21.9 Gastro-esophageal reflux disease without esophagitis; Z13.29 Encounter for screening for other suspected endocrine disorder; I10 Essential (primary) hypertension
CPT/HCPCS: 36415; 80053; 82306; 82607; 83540; 83735; 84439; 84443; 84550; 85025; 85651; 86038; 86431

== ENCOUNTER 2024-10-29 08:06 | Outpatient (CLI) | payer BC, SELFPAY ==
[2024-10-29 08:54] LABS: Chol/HDL Ratio 2.5 (1-3.5); Cholesterol 240 mg/dl (140-200); HDL Cholesterol 96 mg/dl (40-60); Triglycerides 96 mg/dl (30-150); VLDL Cholesterol 19 mg/dL (0-40)
[2024-10-29 09:05] LABS: Direct LDL Cholesterol 119.94 mg/dL (100-129)
== END 2024-10-29 23:59 | disposition home or self-care (01) ==
LOC: LAB 08:07
PROVIDERS: PCP Nurse Practitioner Family; Visit Provider Nurse Practitioner Family
DX: Z13.220 Encounter for screening for lipoid disorders (principal)
CPT/HCPCS: 36415; 80061

== ENCOUNTER 2024-11-06 08:04 | Emergency (ER) | payer BC, SELFPAY ==
[2024-11-06] VITALS (7 sets, daily range): BP systolic 150–175; BP diastolic 90–105; PULSE 68–91; RESP 14–20; TEMP 36.7–36.8; O2SAT 95–98; BMI 35.9
--- NOTE | 2024-11-06 08:11 | ECG_ITS ---
APPROVED REPORT Exam: Resting ECG HR:82 bpm ECG Measurements Heart Rate 82 AXES FL 156 P 55 QRSd 105 QRS 31 QT 394 T 60 QTc 432 Conclusion SINUS RHYTHM MINIMAL ST DEPRESSION [0.025+ mV ST DEPRESSION] BORDERLINE ECG No STEMI Electronically signed by : RENEE GARCIA, 11/07/2024 06:31:14
--- NOTE | 2024-11-06 08:20 | CT_ITS ---
FINAL REPORT TECHNIQUE: Noncontrast exam This study was performed with techniques to keep radiation doses as low as reasonably achievable, (ALARA). Individualized dose reduction techniques using automated exposure control or adjustment of mA and/or kV according to the patient''s size were employed. CLINICAL HISTORY: Elevated BP, headache FINDINGS: No abnormal density is seen. Ventricles are normal. There is no hemorrhage. No mass effect is seen. Bone windows show no evidence of fracture. IMPRESSION: No acute findings Reviewed, Interpreted and Dictated by Kierra Mensah MD Transcribed by Brie Villagomez Authenticated and [facility]
--- NOTE | 2024-11-06 08:20 | XR_ITS ---
FINAL REPORT TECHNIQUE: Single view chest CLINICAL HISTORY: shortness of breath COMPARISON: 12/07/2023 FINDINGS: A single view of the chest was obtained. The heart and mediastinum are within normal limits. There is old calcified granulomatous disease noted. The lungs are otherwise clear. There is no pneumothorax. IMPRESSION: No acute cardiopulmonary process. Reviewed, Interpreted and Dictated by Kierra Mensah MD Transcribed by Brie Villagomez Authenticated and [facility]
--- NOTE | 2024-11-06 08:22 | ED_ITS ---
Discharge Plan Disposition Patient Disposition: Home, Self-Care Condition: Good Prescriptions Prescriptions: No Action omeprazole 40 mg capsule,delayed release(DR/EC) 40 mg PO DAILY Referrals Follow up/Referrals: Clau Larose APRN [Primary Care Provider] - See instructions Activity Restrictions/Add. Instructions Additional Instructions/Restrictions: Follow-up with your primary care physician to discuss blood pressure medications as you may need to have more long-term control of your blood pressure. If you develop any new or worsening symptoms, such as worsening chest pain, shortness of breath, or if you become concerned for your health for any reason, return to the emergency department for evaluation Clinical Impressions Clinical Impression: Headache, Hypertension Stand Alone Forms Stand Alone Forms: Work/School Release Print Language Print Language: Lithuanian Discharge ED Provider: Ludwig Ceballos Adult HPI General Chief complaint: Headache Stated complaint: BP high, headache, SOA Time Seen by Provider: 11/06/24 08:12 Mode of Arrival: Ambulatory Source of Information: Patient Limitations: No Limitations Description of Symptoms (Recalled from ER Triage Doc. by RN): Reports high blood pressure, headache, shortness of breath and slight vision blurred for four days. History of Present Illness HPI narrative: Zaida Peralta is a 59-year-old female with a history of headaches, hyperlipidemia who presents to the emergency department for complaints of elevated blood pressure and headache x 4 days. Patient states that she has had a headache and different locations over the past 4 days. Initially it was frontal and she had some blurry vision at that time, however last night and today the pain is in the occipital region. She denies any current vision changes. She states that at work yesterday, her blood pressure was 140 systolic, which is high for her. She states that she was previously on blood pressure medication that dropped her blood pressure too low. She was put on a water pill several months ago that helped her blood pressure but it made her pee a lot and she could not work appropriately so she stopped taking it a few months ago. She denies any chest pain but does report some shortness of breath last night. She states that she feels anxious and has a funny feeling in both of her arms. She states that at home, her blood pressure was elevated this morning with systolics in the 170s. Related Data Home Medications ?Medication ?Instructions ?Recorded ?Confirmed omeprazole 40 mg capsule,delayed 40 mg PO DAILY GERD 04/08/21 11/06/24 release Allergies Allergy/AdvReac Type Severity Reaction Status Date / Time cephalexin (From KEFLEX) Allergy Mild Hives Verified 08/22/24 11:29 sulfamethoxazole (From Allergy Mild Hives Verified 08/22/24 11:29 BACTRIM) trimethoprim (From BACTRIM) Allergy Mild Hives Verified 08/22/24 11:29 Sulfa (Sulfonamide Allergy Hives Verified 08/22/24 11:29 Antibiotics) [facility] Disclaimer: The information contained in this section may have been updated after the patient was seen, as this information can be updated by other users. 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 (Updated 11/06/24 @ 09:48 by Ludwig Ceballos MD) Bronchitis Contact dermatitis Sinusitis Headache Otitis media Pharyngitis MAIDA (obstructive sleep apnea) Hyperlipidemia Surgical History History of cardiac radiofrequency ablation History of tubal ligation History of tonsillectomy Family History Other Cancer Hypertension Thyroid disorder Social History Smoking Status: Never smoker alcohol intake: current alcohol intake frequency: holidays/special occasions only substance use type: denies use current occupational status: employed and other Travel in the last 8 weeks: None household members: significant other housing: house caffeine: Yes Have you lived/traveled outside [place] in past 30 days?: No Contact w/someone who lives/traveled outside US past 30 days?: No Exposure to someone with infectious disease in past 14 days?: No Do you have a fever (greater than 100.4 F or 38 C)?: No Have you tested positive for COVID-19: No Exposed to someone with COVID-19 in past 14 days?: No Do you have a sore throat?: No Do you have a cough?: No Do you have any weakness?: No Do you have any diarrhea?: No Are you experiencing any unusual bleeding?: No Do you have any muscle aches/pain?: No Do you have any abdominal pain?: No Are you experiencing loss of taste or smell?: No Other 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 Have you received the Flu Vaccine for this season: Yes Have you received the Pneumonia Vaccine: No ROS Obtained: Yes Systems reviewed as appropriate & no additional complaints except as documented Physical Exam General General appearance: alert, in no apparent distress and anxious Head Head exam: atraumatic Eye Eye exam: Present normal appearance ENT ENT exam: Present normal external ear exam Neck Neck exam: Present full ROM Chest Chest inspection: Present symmetric chest wall rise Respiratory Respiratory exam: Present normal lung sounds bilaterally; Absent respiratory distress Cardiovascular Cardiovascular exam: Present regular rate and normal rhythm Abdominal Exam Abdominal exam: Present soft; Absent tenderness or guarding Extremities Exam Extremities exam: Present normal inspection Back Exam Back exam: Present normal inspection Neurological Exam Neurological exam: Present alert and oriented X3 Psychiatric Psychiatric exam: Present normal affect Skin Skin exam: Present warm and dry Medical Decision Making Medical Records Screening: Per USPSTF and CDC recommendations, given the prevalence of disease in our region, it is our hospital?s policy to screen for HIV and viral Hepatitis for all patients aged 18 and over and those with ongoing risk factors. Vinicio Inquiry Pt receiving controlled substance: No Vital Signs: 11/06/24 08:05 11/06/24 08:26 11/06/24 08:30 Temperature 98.0 F Temperature Source Oral Pulse Rate 68 75 Pulse Rate [Radial] 91 H Respiratory Rate 18 20 19 Blood Pressure 152/90 H 150/91 H Blood Pressure [Right Arm] 175/105 H Blood Pressure Mean 117 Blood Pressure Mean [Right Arm] 128 Blood Pressure Source [Right Arm] Automatic Cuff Blood Pressure Position [Right Arm] Sitting 02 Sat by Pulse Oximetry 98 97 96 Oxygen Delivery Method Room Air 11/06/24 09:00 11/06/24 09:30 Temperature Temperature Source Pulse Rate 69 69 Pulse Rate [Radial] Respiratory Rate 19 19 Blood Pressure 153/91 H 164/90 H Blood Pressure [Right Arm] Blood Pressure Mean Blood Pressure Mean [Right Arm] Blood Pressure Source [Right Arm] Blood Pressure Position [Right Arm] 02 Sat by Pulse Oximetry 96 95 Oxygen Delivery Method Room Air Room Air Lab Data Lab Results 11/06/24 08:12: WBC 6.0, RBC 4.86, Hgb 14.8, Hct 44.2, MCV 90.9, MCH 30.5, MCHC 33.5, RDW 13.1, Plt Count 189, MPV 10.7 H, Neut % (Auto) 65.7, Lymph % (Auto) 25.2, [place] % (Auto) 5.3, Eos % (Auto) 2.5, Baso % (Auto) 0.8, Neut # (Auto) 3.9, Lymph # (Auto) 1.5, [place] # (Auto) 0.3, Eos # (Auto) 0.2, Baso # (Auto) 0.1, Sodium 142, Potassium 3.7, Chloride 107, Carbon Dioxide 24, Anion Gap 14.7, BUN 11, Creatinine 0.80, Estimated Creat Clear 121, Estimated GFR 73, Est GFR ( Amer) 89, Glucose 141 H, Calcium 9.2, Total Bilirubin 1.3, AST 32, ALT 28, Alkaline Phosphatase 61, Troponin I < 0.01, NT-Pro-B Natriuret Pep 127 H, Total Protein 7.3, Albumin 4.7, Globulin 2.6, Albumin/Globulin Ratio 1.8, HIV Ag/Ab Combo Qual Negative 11/06/24 08:12 11/06/24 08:12 Orders (Tests/Meds): ED MEDICATIONS Generic Name Dose Route Start Last Admin Trade Name Freq PRN Reason Stop Dose Admin Sodium Chloride 10 ml 11/06/24 08:20 Sodium Chloride 0.9% 10ml Vial IV 12/06/24 08:19 NEEDED PRN to Dilute Lorazepam inj Discontinued Medications Generic Name Dose Route Start Last Admin Trade Name Freq PRN Reason Stop Dose Admin Ketorolac Tromethamine 15 mg 11/06/24 08:20 11/06/24 08:44 Ketorolac 30mg/Ml Vial IV 11/06/24 08:21 15 mg ONCE ONE Administration Lorazepam 1 mg 11/06/24 08:20 11/06/24 08:44 Lorazepam 2mg/Ml Vial IV 11/06/24 08:21 1 mg ONCE ONE Administration ORDERS Category Date Time Status CT head/brain wo con Stat Cat Scan 11/06/24 08:20 Completed CXR --portable [XR chest portable] Stat Exams 11/06/24 08:20 Completed BNP [NT Pro Brain Natriuretic Pep.] Stat Lab 11/06/24 08:12 Completed CBC w/Auto Diff [Complete Blood Count Auto Diff] Stat Lab 11/06/24 08:12 Completed CMP [Comprehensive Metabolic Panel] Stat Lab 11/06/24 08:12 Completed HIV Combo Stat Lab 11/06/24 08:12 Completed Hepatitis C Ab Qual. W/ RFX Stat Lab 11/06/24 08:12 Received Troponin I Q3H Lab 11/06/24 11:30 Ordered Troponin I Q3H Lab 11/06/24 14:30 Ordered Troponin I Stat Lab 11/06/24 08:12 Completed ECG Data Tracing #1: I reviewed this ECG and interpreted as documented below: EKG interpreted by me personally. Normal sinus rhythm. No ST elevation or depression. Ventricular rate of 82 bpm, QTc normal at 432 Medical Decision Narrative: Zaida Peralta is a 59-year-old female with a history of headaches, hyperlipidemia who presents to the emergency department for complaints of elevated blood pressure and headache x 4 days. Patient states that she has had a headache and different locations over the past 4 days. Initially it was frontal and she had some blurry vision at that time, however last night and today the pain is in the occipital region. She denies any current vision changes. She states that at work yesterday, her blood pressure was 140 systolic, which is high for her. She states that she was previously on blood pressure medication that dropped her blood pressure too low. She was put on a water pill several months ago that helped her blood pressure but it made her pee a lot and she could not work appropriately so she stopped taking it a few months ago. She denies any chest pain but does report some shortness of breath last night. She states that she feels anxious and has a funny feeling in both of her arms. She states that at home, her blood pressure was elevated this morning with systolics in the 170s. On arrival, patient is hypertensive with blood pressure 175/105, heart rate within normal limits, breathing comfortably on room air with oxygen saturation at 100% SpO2, afebrile. Physical exam revealed an anxious. Female in no distress. She is complaining of a mild headache to the back of her head but is speaking full sentences, GCS 15 and no focal neurological deficits. Cardiopulmonary exam is unremarkable. She denies any leg swelling and has no swelling on exam. Difficult diagnosis includes, but is not limited to: ACS, pneumonia, hypertensive emergency, intracranial hemorrhage, CHF, among others. Work with the Emergency Department included: CT head without contrast, CMP, CBC, troponin, BNP, chest x-ray, EKG See EKG interpretation above Chest x-ray interpreted by me personally. No focal consolidation, no pneumothorax, no widening of the mediastinum. See radiology report for details CT imaging of the head interpreted by me personally with no acute intracranial hemorrhage, no masses or midline shift. See radiology report for details CBC unremarkable nonactionable, CMP unremarkable nonactionable, troponin less than 0.01. Patient remained somewhat hypertensive while in the emergency department but overall her workup today is unremarkable for any acute pathology or endorgan damage. Is felt that she needs tighter blood pressure control, which can be arranged by her primary care physician. She may just need to go back on her previously prescribed medications. She is encouraged to follow-up with her primary care physician to discuss this further. Return precautions were provided. She demonstrated understanding and was in agreement with this plan. She was then discharged from the emergency department in stable condition. Critical Care Critical Care Time Critical Care Time: No
--- NOTE | 2024-11-06 08:22 | PC.NURSE ---
0807- Patient ambulatory to room 5, gowned, on stretcher. Family x 1 at bedside. 0811- EKG completed, given to Dr Ceballos. 0815- PIV placed, labs collected and sent for analysis. Placed on cardiac, BP, and SpO2 monitoring. 0818- Dr. Ceballos at bedside for evaluation. Patient provided with warm blanked.
[2024-11-06 08:30] LABS: Basophils # 0.1 K/mm3 (0-0.2); Basophils % 0.8 % (0.1-2.0); Eosinophils # 0.2 K/mm3 (0.0-0.4); Eosinophils % 2.5 % (0.1-12.0); Hematocrit 44.2 % (37.0-47.0); Hemoglobin 14.8 g/dL (12.2-16.2); Lymphocytes # 1.5 K/mm3 (0.7-4.5); Lymphocytes % 25.2 % (10-50); Mean Corpuscular HGB Conc 33.5 g/dL (31.8-35.4); Mean Corpuscular Hemoglobin 30.5 pg (27.0-31.2); Mean Corpuscular Volume 90.9 fl (81-99); Mean Platelet Volume 10.7 fl (7.4-10.4); Monocytes # 0.3 K/mm3 (0.1-1.0); Monocytes % 5.3 % (1.7-9.3); Neutrophils # 3.9 K/mm3 (1.8-7.8); Neutrophils % 65.7 % (37.0-80.0); Platelet Count 189 K/mm3 (142-424); Red Blood Count 4.86 M/mm3 (4.20-5.40); Red Cell Distribution Width 13.1 % (11.5-17.5)
[2024-11-06 08:31] LABS: Albumin Level 4.7 g/dl (3.5-5.0); Chloride 107 mmol/L (98-107)
--- NOTE | 2024-11-06 08:31 | PC.NURSE ---
pt to radiology via wheelchair with health care sanitary technician
[2024-11-06 08:32] LABS: Potassium 3.7 mmoL/L (3.5-5.1); Sodium 142 mmol/L (136-145)
--- NOTE | 2024-11-06 08:33 | PC.NURSE ---
0833- Patient to CT via [facility].
[2024-11-06 08:34] LABS: Alanine Aminotransferase 28 U/L (12-78); Albumin/Globulin Ratio 1.8 (1.1-1.8); Alkaline Phosphatase 61 U/L (38-126); Anion Gap 14.7 mEq/L (5-15); Aspartate Amino Transferase 32 U/L (14-36); Bilirubin,Total 1.3 mg/dl (0.2-1.3); Blood Urea Nitrogen 11 mg/dl (7-17); Carbon Dioxide 24 mmol/L (22.0-30.0); Creatinine Clearance Estimated 121 mL/min (50-200); Estimated Glomerular Filt Rate 73 ml/min (>60); GFR (African American) 89 ML/MIN (>60); Globulin 2.6 g/dL (1.3-3.2); Total Protein,Serum 7.3 g/dl (6.3-8.2)
[2024-11-06 08:35] LABS: Calcium 9.2 mg/dl (8.4-10.2); Glucose 141 mg/dl (74-100)
[2024-11-06 08:43] LABS: NT Pro Brain Natriuretic Pep. 127 pg/mL (0-125)
[2024-11-06] MEDS: KETOROLAC 30MG/ML VIAL 15 MG IV (08:44)
[2024-11-06] MEDS: LORazepam 2MG/ML VIAL 1 MG IV (08:44)
[2024-11-06 08:49] LABS: Troponin I < 0.01 ng/ml (0.00-0.034)
[2024-11-06 09:43] LABS: HIV Combo NEGATIVE (Negative)
[2024-11-06 09:51] LABS: Hepatitis C Ab Qual. W/ RFX NEGATIVE (Negative)
--- NOTE | 2024-11-06 10:00 | PC.NURSE ---
0915- Patient expresses no needs at this time. A & O x 4. No distress noted. Reports anxiety has diminished.
== END 2024-11-06 10:11 | disposition home or self-care (01) ==
PROVIDERS: Emergency Provider Student in an Organized Health Care Education/Training Program; PCP Nurse Practitioner Family
DX: R51.9 Headache, unspecified (principal); I10 Essential (primary) hypertension; E78.5 Hyperlipidemia, unspecified; R06.02 Shortness of breath
CPT/HCPCS: 70450; 71045; 80053; 83880; 84484; 85025; 86803; 87389; 93005; 96374; 96375; 99285; J1885; J2060

== ENCOUNTER 2025-02-20 15:41 | Outpatient (RCR) | payer BC, SELFPAY ==
--- NOTE | 2025-02-20 17:45 | HMH.PTOPEV ---
PT Outpatient Evaluation Rehab PT Outpatient Evaluation Start: 02/20/25 16:01 Freq: Status: Active Protocol: Document 02/20/25 16:01 SARAVANAN (Rec: 02/20/25 17:45 RONNYAMARIDONATO [id number]) E-signed By Esvin Diallo, PT Outpatient Therapy Subjective History Subjective History Pt is a 59 yof who is referred to [facility] outpatient PT with complaints of mid/upper back pain that began approximately 8 weeks ago. Pt reports that her pain is very episodic and reports 4-5 episodes of Severe pain which she described as a spasm into her mid back. The pt reports that she works at a local [employer] and is required to lift 50 pound boxes of coins almost everyday which she believes to be the cause of her symptoms. When she is flared up, she reports significant difficulty with walking, bending, lifting. She reports no significant past medical history. New diagnosis of No cancer in past 12 months? Chief Complaint Pain Symptom Type Sharp Symptoms Relieved By Heat,Prescription Meds Symptoms Aggravated Standing,Bending/Stooping,Twisting,Walking,Lifting By Prior Functional None Limitations Current Functional Lifting,Housework,Standing,Walking Limitations Symptom Description Intermittent,Activity Dependent Level of pain today 1 (0-10) Pain scale - at its 0 best (0-10) Pain scale - at its 8 worst (0-10) Cervical Eval Palpation Cervical Muscles R Thoracic Paraspinals,L Thoracic Paraspinals Flexibility Deficits Pectoralis Minor (R) Moderate Tightness,(L) Moderate Tightness Muscle Length Lumbopelvic Eval Posture Thoracic Spine Increased Kyphosis Posture Standing Position Palapation tenderness right thoracic spinal Yes: TTP 3/4 to T3-T6 tenderness paraspinal Yes: TTP 3/4 to T3-T6 tenderness Oswestry Index Section 1 Pain Intensity The pain comes and goes and is moderate Section 2 Personal Care ( increase the pain, but I manage not to change my way of Washing,[place]res[place]) doing it Section 3 Lifting I can only lift very light weights at most Section 4 Walking I have some pain when walking but it does not increase with distance Section 5 Sitting Pain prevents me from sitting for more than 1/2 hour Section 6 Standing I cannot stand more than 10 minutes without increasing pain Section 7 Sleeping Because of my pain, my normal night's sleep is less than 6 hours sleep Section 8 Social Life My social life is normal but increases the degree of pain Section 9 Traveling I get extra pain while traveling, but it does not compel me to seek al Section 10 Changing Degreee of My pain is neither getting better or worse Pain Score and Risk Level Oswestry Sc 25 Oswestry Risk Level Severe Disability Miscellaneous Dx PT Eval Objective Objective MMT: - R Rhomboid: 2/5 - L Rhomboid: 3/5 - R UT: 2/5 - L UT: 3/5 Thoracic Extension: 25% Outpatient Therapy Assessment Impairments Problems/ Palpation Tenderness,Impaired Range of Motion,Impaired Impairmments Strength,Impaired Walking,Impaired Standing,Impaired Lifting,Impaired Household Care,Subjective C/O Pain Prognosis Rehab Potential Good Clinical Impression Consistent with Yes Diagnosis Consistent with Thoracic Back Pain (M54.6) Additional details: Signs and symptoms suggest of Rhomboid strain Short Term Goals Number of Weeks 3 Decreased Palpation Yes: 2-3/4 with TTP assessment above Tenderness Increase Range of Yes: Thoracic Extension to 50% WNL Motion Increase Strength Yes: 3+/5 to B rhomboids and UT Increase Ability to Yes: 30 minutes without increasing pain Stand Restore Ability to Yes: 10# without increasing pain Lift Objects to Waist Level Improve Oswestry Yes: <20 Score Decrease Subjective Yes: 01/19 with above assessment C/O Pain Patient to be Ind w/ Yes [facility] Goals Number of Weeks 6 Decreased Palpation Yes: 0-1/4 to TTP assessment above Tenderness Increase Range of Yes: 75% WNL thoracic extension Motion Increase Strength Yes: 4-4+/5 to B Rhomboids and UT Increase Ability to Yes: 1 hour without increasing symptoms Stand Restore Ability to Yes: 50# without increasing symptoms Lift Objects to Waist Level Improve Ability For Yes: Able to do normal household cooking/cleaning Household Care without increasing symtpoms Improve Tolerance to Yes: Normal daily work duties without increasing Work Activities symptoms Improve Oswestry Yes: <15 Score Decrease Subjective Yes: 2-3/10 with above assessment C/O Pain Patient to be Ind w/ Yes Advanced [facility] Outpatient Therapy Plan of Care Treatment Plan May Include Therapeutic Exercise Yes Including Home Exercise Program Manual Therapy Yes Techniques Neuromuscular Re- Yes education Therapeutic Yes Activities to Return to Previous Functional/Work Level Gait Training Yes ADL/Self Care Yes Education Mechanical Traction Yes Dry Needling Yes Thermal Modalities Yes Electrical Yes Stimulation Ultrasound/ Yes Phonophoresis Iontophoresis Yes Massage Yes Eval/Re-Eval Yes Frequency Times per week 2 Duration Number of Weeks 6 Addendums This patient is a No candidate for social or vocational rehab ? Patient/Guardian Yes verbally acknowledges understanding of treatment program and consents to further treatment? Patient/Guardian Yes verbally acknowledges understanding of diagnosis, prognosis and goals for treatment? Eval Complexity PT Charges 02375 - Low Complexity Shoulder/Elbow Eval Shoulder Objective Measurements Elbow Objective Measurements PHYSICIAN CERTIFICATION: I certify the specified therapy services for Zaida Peralta are required, authorized, and reviewed every 30 days.
== END 2025-02-20 23:59 | disposition home or self-care (01) ==
LOC: PT 15:41
PROVIDERS: PCP Nurse Practitioner Family; Visit Provider Nurse Practitioner Family
DX: M54.6 Pain in thoracic spine (principal)
CPT/HCPCS: 97161

== ENCOUNTER 2025-05-06 11:02 | Outpatient (CLI) | payer BC, SELFPAY ==
--- OUTSIDE RECORDS SUMMARY | 2025-02-28 06:15 | XMS_ITS ---
Author Organization [facility] Address [address] [facility] [address] [place] [id number] Care Team Providers Care Slot Supervisor Name Role Phone Marina Escamilla Primary Care Provider Clfiford Knight [phone] REASON FOR VISIT 2 week f/u Encounters Encounter Location Date Provider Diagnosis [facility] [address] [facility] [address] [place] [id number] 02/28/2025 Clifford Knight Plan Of Treatment No Information Progress Notes * BEN HOLLINGSWORTHOB: (60 yo F)Acc No.[id number]:02/28/2025 Progress Notes Patient: BEN CARMONA Provider: Clifford Knight M.D. :1965 A ge:59 Y S ex:Female Date:02/28/2025 Address:[address] [place], [id number] Pcp:Marina Escamilla Subjective: * Chief Complaints: * 1 . 2 week f/u. * 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: Objective: * Vitals: Assessment: Plan: * Treatment: * Images: Billing Information: * Visit Code: * Procedure Codes: * Electronic signature of Clifford Knight MD on 05/06/2025 at 11:44 AM EDT Sign off status: Pending * Provider: Clifford Knight M.D. Date: 0 02/28/2025 Generated for Michael loza/Marc/Gerald on: 0 05/06/2025 11:44 AM EDT
--- NOTE | 2025-05-06 11:07 | XR_ITS ---
FINAL REPORT CLINICAL HISTORY: ACUT PAIN OF LEFT SHOULDER FINDINGS: 3 views of the left shoulder were obtained. There is no fracture or dislocation. The joint space is preserved. Soft tissues are unremarkable. IMPRESSION: No acute osseous abnormality of the left shoulder. Reviewed, Interpreted and Dictated by Nikki Francois MD Transcribed by Brie Villagomez Authenticated and [facility]
--- NOTE | 2025-05-06 11:07 | XR_ITS ---
FINAL REPORT CLINICAL HISTORY: FOOT INJURY FINDINGS: AP, oblique and lateral views of the right foot were obtained. There is no acute fracture or dislocation. 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 Soft tissues are unremarkable. IMPRESSION: No acute osseous abnormality of the right foot. Reviewed, Interpreted and Dictated by Nikki Francois MD Transcribed by Brie Villagomez Authenticated and [facility]
--- OUTSIDE RECORDS SUMMARY | 2025-05-06 11:43 | XMS_ITS | Clinical Summary ---
Author Organization [facility] Address [address] [place] [address] Care Team Providers Care Disc Pad Plate Filler Name Role Phone Toni Knight MD Primary [...] on cytologic smear of cervix (ASC-US) 07/08/2020 Family History 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 Relation Name Comments [...] Used Date Smoking Tobacco: Former Cigarettes 1 20 2014 Smokeless Tobacco: Never Alcohol Use Standard Drinks/Week Comments Yes 0 (1 standard drink = 0.6 oz pur e alcohol) occasional/[facility]ational Stress Questionnaire Answer [...] 91 08/03/2021 3:33 PM EST Temperature 36.5 C (97.7 F) 07/08/2020 4:58 PM EDT Respiratory Rate - - Oxygen Saturation 96% 06/09/2020 3:25 PM EDT Inhaled Oxygen Concentration - - Weight 106 kg (233 lb 12.8 oz) 06/21/2024 9:58 A M EDT Height 167.6 cm (5' 5.98 ) 06/21/2024 9:58 AM ED T Body Mass Index 37.75 06/21/2024 9:58 AM EDT Plan of Treatment Health Maintenance Due Date Last Done Comments TDAP/TD VACCINES (1 - Tdap) 1984 COLOGUARD 2010 COLON CANCER SCREENING 5 YEA R SIGMOIDOSCOPY [address] COLONOGRAPHY 2010 FECAL OCCULT BLOOD TEST 2010 FIT Testing (1 year) 2010 LUNG CANCER SCREENING 2015 Pneumococcal Vaccine 50+ (1 of 1 - PCV) 2015 ZOSTER VACCINE (1 of 2) 2015 HEPATITIS C SCREENING 03/05/2020 ANNUAL PHYSICAL 07/08/2021 07/08/2020 COVID-19 Vaccine (1 - 2023-2 5 season) 2024 INFLUENZA VACCINE 06/12/2025 06/29/2019 Annual Gynecologic Pelvic an d Breast Exam 06/22/2025 06/21/2024, 11/24/2021, 11/24/2021 PAP SMEAR 05/02/2026 05/02/2023, 11/10, 07/15/2020 MAMMOGRAM 06/19/2026 06/19/2024, 05/15, 05/02/2023, Additional history exists COLONOSCOPY 07/14/2030 07/14/2020 COLORECTAL CANCER SCREENING 07/14/2030 Procedures Procedure Name Priority Date/Time Associated Diagnosis Comments MAMMO DIAGNOSTIC DIGITAL TOMOSYNTHESIS LEFT W CAD Routine 06/19/2024 9:25 AM EDT Abnormal mammogram LIQUID-BASED PAP SMEAR WITH HPV GENOTYPING REGARDLESS [...] of concern indicated by the patient. A paiute-shoshone marker is placed over a visible skin [...] to reflect milk of calcium. Estelita Medeiros OPERATIONS FORESTER IMG MAMMOGRAPHY ORDERABLE S Final Result * LIQUID-BASED PAP SMEAR WITH HPV GENOTYPING REGARDLESS OF INTERPRETATION (CHANTELL,COR,MAD) (05/02/2023 8:43 AM EDT) Pathologist [facility] Reference Lab Report [facility] [address] [place] [address] or [phone] Toni Mejia M.D., Road Crossing Guard PATIENT NAME LABORATORY NO. BEN MALIN. [id number] AGE SEX SSN CLIENT REF # [id number] ([facility]) 58 1965 F [id number] [facility] LIZZETTE PRICE REQUESTING Robby [place] [address] ESTELITA MEDEIROS DATE COLLECTED DATE RECEIVED DATE REPORTED 05/02/2023 05/02/2023 05/03/2023 ThinPrep Pap with Cytyc Imaging DIAGNOSIS: Negative for intraepithelial lesion or malignancy Multiple factors can influence accuracy of Pap tests; therefore, screening at regular intervals is necessary for early cancer detection. SPECIMEN ADEQUACY: SATISFACTORY FOR EVALUATION Transformation zone is absent or insufficient. SOURCE OF SPECIMEN: CERVICAL/ENDOCERV ICAL SLIDES: 1 CLINICAL HISTORY: Pap test, as part of routine gynecological [...] 51, 52, 56, 58, 59, 66, 68 REFUGE MANAGER: INDER JACOBSON (ASCP) CPT CODES: 11207, [id number] 05/03/2023 2:55 PM EDT [facility] ThinPrep Vial Cervix uteri structure / Unknown Collection / Unknown 05/02/2023 8:43 AM EDT 05/02/2023 8:43 AM EDT Estelita Medeiros OPERATIONS FORESTER PATHOLOGY/CYTOLOGY ORDERA BLES Final Result [facility]
[address] [place] [address], * SCANNED - PAP SMEAR (11/24/2021) Guanakito Stroud MD CHART REVIEW TABS Final Result * SCANNED - COLONOSCOPY (07/14/2020) Toni Knight MD CHART REVIEW TABS F inal Result from Last 3 Months or Most Recently Relevant to Health Maintenance Insurance [place] [id number] [facility] BLUE [facility] PPO Care Teams Disc Pad Plate Filler Relationship Specialty Start Date End Date Toni Knight MD [address] [facility] [address] [place] [address] PCP - General Family Medicine 09/16/16
--- OUTSIDE RECORDS SUMMARY | 2025-05-06 11:44 | XMS_ITS | Patient Health Record ---
Author Organization [facility] Address [address] [facility] [address] [place] [id number] Care Team Providers Care Records Supervisor Name Role Phone Marina Escamilla Primary Care Provider [phone] Clifford Knight Unavailable [phone] Juju Larose Unavailable [phone] Allergies Allergen (clinical drug ingredient) Drug/Non Drug Allergy documented on EMR Reaction Allergy Type Onset Date Status sulfamethoxazole / trimethoprim Bactrim fever, rash Drug Allergy Active cephalexin Cephalexin fever, rash Drug Allergy Act landry Results Component Value Reference Range Notes H-Lipid Panel Reviewed date:10/30/2024 08:40:41 AM Interpretation:/tc 240;HDL96; WNH061.94; TG 96 Performing Lab: Notes/Report: Patient Fasting? Y TRIG 96 30-150 mg/dl CHOL 240 140-200 mg/dl DLDL 119.94 100-129 mg/dL VLDL 19 0-40 mg/dL HDL 96 40-60 mg/dl CHLHDL 2.5 1-3.5 H-Rheumatoid Arthritis Panel Reviewed date:10/23/2024 11:02:55 AM Interpretation: Performing Lab: Notes/Report: RA 11.6 <14.0 IU/mL Performed at: [facility] [address] [id number] Esthetician/Spa Coordinator: Lincoln Maloney PhD, Phone: [phone] ANAIFA Negative . Negative <1:80 Borderline 1:80 Positive >1:80 ICAP nomenclature: AC-0 For more information about Hep-2 cell patterns use ANApatterns.org, the official website for the International Consensus on Antinuclear Antibody (ASHLEY) Patterns (ICAP). Performed at: [address] [id number] Esthetician/Spa Coordinator: Lincoln Maloney PhD, Phone: [phone] H-Rheumatoid Arthritis Panel Reviewed date:10/23/2024 11:02:26 AM Interpretation: Performing Lab: Notes/Report: URIC 5.2 2.5-6.2 mg/dl H-Iron Reviewed date:10/23/2024 11:01:27 AM Interpretation:82 Performing Lab: Notes/Report: FE 82 37-170 ug/dL H-T4 free Reviewed date:10/23/2024 11:01:57 AM Interpretation:1.02 Performing Lab: Notes/Report: T4F 1.02 0.78-2.19 ng/dl H-VITAMIN B12 Reviewed date:10/23/2024 11:02:41 AM Interpretation:low normal 295 Performing Lab: Notes/Report: VITB12 295 239-931 pg/mL H-Magnesium Reviewed date:10/23/2024 11:01:13 AM Interpretation:1.8 Performing Lab: Notes/Report: MG 1.8 1.6-2.3 mg/dl H-CMP Reviewed date:10/23/2024 11:00:58 AM Interpretation: Performing Lab: Notes/Report: NA 141 136-145 mmol/L K 4.6 3.5-5.1 mmoL/L CL 108 98-107 mmol/L CO2 26 22.0-30.0 mmol/L GAP 11.6 5-15 mEq/L BUN 15 7-17 mg/dl CREATT 0.70 0.52-1.04 mg/dl GFRAA 104 >60 ML/MIN EGFR 86 >60 ml/min GLU 107 74-100 mg/dl CA 9.7 8.4-10.2 mg/dl BILIT 0.5 0.2-1.3 mg/dl AST 26 14-36 U/L ALT 27 12-78 U/L TP 6.5 6.3-8.2 g/dl ALB 4.4 3.5-5.0 g/dl GLOB 2.1 1.3-3.2 g/dL AGRATIO 2.1 1.1-1.8 ALP 57 38-126 U/L H-VITAMIN D Reviewed date:10/23/2024 11:01:42 AM Interpretation:37.6 Performing Lab: Notes/Report: TVITD 37.6 30-100 ng/mL Deficient <20 ng/mL Insufficient 20-30 ng/mL Sufficient 30-100 ng/mL Potential Toxicity >100 ng/mL H-Rheumatoid Arthritis Panel Reviewed date:10/23/2024 10:47:49 AM Interpretation: Performing Lab: Notes/Report: ESR 15 0-30 mm/hr H-CBC Reviewed date:10/23/2024 10:48:04 AM Interpretation: Performing Lab: Notes/Report: WBC 6.5 4.8-10.8 K/mm3 RBC 4.54 4.20-5.40 M/mm3 HGB 14.2 12.2-16.2 g/dL HCT 41.7 37.0-47.0 % MCV 91.9 81-99 fl MCH 31.3 27.0-31.2 pg MCHC 34.1 31.8-35.4 g/dL RDW 13.2 11.5-17.5 % PLT 218 142-424 K/mm3 MPV 10.6 7.4-10.4 fl NE% 61.0 37.0-80.0 % LY% 28.9 10-50 % MO% 6.0 1.7-9.3 % EO% 2.8 0.1-12.0 % BA% 1.1 0.1-2.0 % NE# 4.0 1.8-7.8 K/mm3 LY# 1.9 0.7-4.5 K/mm3 MO# 0.4 0.1-1.0 K/mm3 EO# 0.2 0.0-0.4 K/mm3 BA# 0.1 0-0.2 K/mm3 H-TSH Reviewed date:10/23/2024 11:02:13 AM Interpretation:1.45 Performing Lab: Notes/Report: TSH 1.45 0.465-4.68 uIU/mL Influenza Screen (in house) Reviewed date:12/13/2024 02:34:38 PM Interpretation: Performing Lab: Notes/Report: results Neg Covid test (in house) Reviewed date:12/13/2024 02:35:03 PM Interpretation: Performing Lab: Notes/Report: Result: Neg P-Vitamin B12 Reviewed date:02/07/2025 10:12:28 PM Interpretation:213 Performing Lab: Notes/Report: Test performed by [facility] [address], [place] [address] Jeff Rae MD, A&P Technician CLIA: [id number] Vitamin B12 733 577-1158 pg/mL P-Comprehensive Metabolic Pa maria esther (CMP) Reviewed date:02/07/2025 10:12:28 PM Interpretation:Normal Performing Lab: Notes/Report: Test performed by [facility] [address], [place] [address] Jeff Rae MD, A&P Technician CLIA: [id number] Sodium 143 135-145 mmol/L Potassium 4.2 3.5-5.3 mmol/L Chloride 107 97-108 mmol/L CO2 23 22-32 mmol/L Glucose 93 65-99 mg/dL BUN 16 6-20 mg/dL Creatinine 0.73 0.50-1.00 mg/dL Calcium 9.3 8.6-10.4 mg/dL eGFR by Creatinine 94 >59 mL/min/1.73m2 Protein 6.9 6.0-8.3 g/dL Albumin 4.4 3.5-5.3 g/dL Alkaline Phosphatase 70 35-121 IU/L ALT (SGPT) 11 <5-47 IU/L AST (SGOT) 13 <5-40 IU/L Bilirubin, Total 0.9 <0.2-1.2 mg/dL A/G Ratio 1.8 1.1-2.5 P-Lipid Panel Reviewed date:02/07/2025 10:12:28 PM Interpretation:chol 273, non-hdl 161, ldl 145 Performing Lab: Notes/Report: Test performed by [facility] [address] [place] [address] [address], [place] [address] Jeff Rae MD, A&P Technician CLIA: [id number] Cholesterol 273 <200 mg/dL Triglycerides 78 <150 mg/dL HDL Cholesterol 112 >39 mg/dL Cholesterol / HDL Ratio 2.44 0.00-4.44 Ratio Non-HDL Cholesterol 161 <130 mg/dL LDL Cholesterol (Calculation) 145 <130 mg/dL LDL Cholesterol Levels* Less than 100 mg/dL Optimal 100 to 129 mg/dL Near Optimal/ Above Optimal 130 to 159 mg/dL Borderline High 160 to 189 mg/dL High 190 mg/dL and above Very High * Categories as recommended by the 2004 ATPIII guidelines LDL/HDL Ratio 1.3 <3.3 Ratio LDL Cholesterol Patient History Test Date: 01/31/2025 LDL Results: 145 Units: mg/dL % Change: - P-Vitamin D 25-Hydroxy Reviewed date:02/07/2025 10:12:28 PM Interpretation:29.5 Performing Lab: Notes/Report: Test performed by [facility] [address] [place] [address] , [address], [place] [address] Jeff Rae MD, A&P Technician CLIA: [id number] Vitamin D 25-Hydroxy 29.5 30.0-100.0 ng/mL Interpretation of Vitamin D 25 OH: < 20 ng/mL - Deficiency 20 - 29 ng/mL - Insufficiency 30 - 100 ng/mL - Sufficiency > 100 ng/mL - Super-therapeutic- toxicity may occur above this level. Clinical correlation required. Uric acid Reviewed date:10/20/2024 01:23:39 PM Interpretation:see 10/20/2024 duplicate order Performing Lab: Notes/Report: see 10/20/2024 duplicate order Magnesium Reviewed date:10/20/2024 01:23:52 PM Interpretation:see 10/20/2024 duplicate order Performing Lab: Notes/Report: see 10/20/2024 duplicate order Iron Reviewed date:10/20/2024 01:24:06 PM Interpretation:see 10/20/2024 duplicate order Performing Lab: Notes/Report: see 10/20/2024 duplicate order Complete Metabolic Profile Reviewed date:10/20/2024 01:24:18 PM Interpretation:see 10/20/2024 duplicate order Performing Lab: Notes/Report: see 10/20/2024 duplicate order Arthritis profile Reviewed date:10/20/2024 01:24:31 PM Interpretation:see 10/20/2024 duplicate order Performing Lab: Notes/Report: see 10/20/2024 duplicate order Vit D Reviewed date:10/20/2024 01:24:44 PM Interpretation:see 10/20/2024 duplicate order Performing Lab: Notes/Report: see 10/20/2024 duplicate order Vitamin B12 Reviewed date:10/20/2024 01:24:58 PM Interpretation:see 10/20/2024 duplicate order Performing Lab: Notes/Report: see 10/20/2024 duplicate order CBC Reviewed date:10/20/2024 01:25:10 PM Interpretation:see 10/20/2024 duplicate order Performing Lab: Notes/Report: see 10/20/2024 duplicate order TSH+Free T4 Reviewed date:10/20/2024 01:25:25 PM Interpretation:see 10/20/2024 duplicate order Performing Lab: Notes/Report: see 10/20/2024 duplicate order Medications Medication SIG (Take, Route, Frequency, Duration) Notes Start Date End Date Status Losartan Potassium 50 MG 1 tablet Orally Once a day; Duration: 30 days Active Omeprazole 40 MG take 1 capsule by [facility] once daily Orally Once a day; Duration: 30 days Active Immunizations Vaccine Route Administration Date Status Comme nts Fluzone Quad (6months&older) IM Intramuscular 06/29/2019 Administered Hepatitis A (adult) Unknown 08/18/2018 Administered Hepatitis A (adult) IM Intramuscular 02/27/2019 Administer ed Problems Problem Type SNOMED Code ICD Code Onset Dates Problem Status W/U Status Risk Notes Problem Gastroesophageal reflux disease (369345173) GERD (gastroesophageal reflux disease) (K21.9) Active confirmed Problem Gastro-esophageal reflux disease without esophagitis (457361339) Gastro-esophageal reflux disease without esophagitis (K21.9) Active confirmed Problem Hypertension (22603161) HTN (hypertension) (I10) Active confirmed Problem Vitamin D deficiency (08965057) Vitamin D deficiency (E55.9) Active confirmed Problem Diverticulitis (00321126) Diverticulitis (K57.92) Active confirmed Problem Paresthesia (25780636) Paresthesia (R20.2) Active confirmed Problem Mixed anxiety and depressive disorder (348849066) Depression with anxiety (F41.8) Active confirmed Problem Sleep apnea (30014651) Sleep apnea (G47.30) Active confirmed Problem Anxiety (73249991) Situational anxiety (F41.8) Active confirmed Problem Cardiac arrhythmia (181967808) Cardiac arrhythmia, unspecified (I49.9) Active confirmed Problem Atelectasis (12335762) Atelectasis (J98.11) Active confirmed Problem Slow transit constipation (49820275) Slow transit constipation (K59.01) Active confirmed Problem Obese class II (112193479953319) BMI 35.0-35.9,adult (Z68.35) Active confirmed Problem Gastroesophageal reflux disease without esophagitis (394444647) Gastroesophageal reflux disease without esophagitis (K21.9) Active confirmed Problem Obesity (382040992) Non morbid o besity due to excess calories (E66.09) Active confirmed Problem Depression (405366961) Depression (F32.9) Active confirmed Problem HBP - High blood pressure (10696363) HBP (high blood pressure) (I10) Active confirmed Problem Obstructive sleep apnea syndrome (93498313) MAIDA (obstructive sleep apnea) (G47.33) Active confirmed Problem Body mass index 30.00 to 34.99 (168409759759779) BMI 34.0-34.9,adult (Z68.34) Active confirmed Problem Diverticular disease of colon (196924754) Diverticulosis (K57.90) Active confirmed Problem Obese class II (034544658576558) BMI 37.0-37.9, adult (Z68.37) Active confirmed Problem Dyslipidemia (647366993) Dyslipidemia (E78.5) Active confirmed Problem Chronic idiopathic constipation (05361161) Chronic idiopathic constipation (K59.04) Active confirmed Problem Carpal tunnel syndrome (97699286) Carpal tunnel syndrome on both sides (G56.03) Active confirmed Problem Enthesopathy (42166831) Tendinitis of thumb (M77.8) Active confirmed Problem 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 Vital Signs Heart Rate 78 /min 05/06/2025 Blood pressure diastolic 72 mm Hg 05/06/2025 Height 66 in 05/06/2025 Blood pressure systolic 128 mm Hg 05/06/2025 Weight 232.8 lbs 05/06/2025 BMI 37.57 kg/m2 05/06/2025 Encounters Encounter [facility] Date [facility] [id number] 10/15/2024 Juju Larose Paresthesia R20.2 ; Joint pain M25.50 ; Lipid screening Z13.220 ; Diabetes mellitus screening Z13.1 ; GERD (gastroesophageal reflux disease) K21.9 and Thyroid disorder screen Z13.[address] [id number] 11/06/2024 R Erick Antonia HBP (high blood pressure) I10 and MAIDA (obstructive sleep apnea) G47.[address] [id number] 11/29/2024 R Erick Antonia HBP (high blood pressure) I10 [address] [id number] 12/13/2024 R Erick Antonia Acute URI J06.9 and Muscle strain T14.8XXA [address] [place] [id number] 01/31/2025 R Erick Antonia Dyslipidemia E78.5 ; HBP (high blood pressure) I10 ; Carpal tunnel syndrome on both sides G56.03 ; Vitamin B 12 deficiency E53.8 and Vitamin D deficiency E55.9 [facility] [address] [place] [id number] 02/05/2025 Juju Larose Acute thoracic back pain, unspecified back pain laterality M54.6 and Back muscle spasm M62.830 [facility] [address] [place] [id number] 05/06/2025 Juju Larose Foot injury S99.929A ; Acute pain of left shoulder M25.512 ; Gastroesophageal reflux disease without esophagitis K21.9 and HTN (hypertension) I10 [facility] [address] [facility] [address] [place], [place] [id number] 10/23/2024 Juju Larose Lipid screening Z13. 220 [facility] [address] [facility] [address] [place], [place] [id number] 12/04/2024 Clifford Erick [place] [facility] [address] [facility] [address] [place], [place] [id number] 02/01/2025 Marina Escamilla GERD (gastroesophage al reflux disease) K21.9 [facility] [address] [address] [place] [id number] 02/05/2025 Juju Larose [facility] [address] [facility] [address] [place], [place] [id number] 02/07/2025 Marina Escamilla Assessments Encounter Date Diagnosis (ICD Code) Assessment Notes Treatment Notes Treatment Clinical Notes Section Notes 10/15/2024 Paresthesia (ICD-10 - R20.2) 10/15/2024 Joint pain (ICD-10 - M25.50) 12/13/2024 Acute URI (ICD-10 - J06.9) 12/13/2024 Muscle strain (ICD-10 - T14.8XXA) 05/06/2025 Foot injury (ICD-10 - S99.929A) 05/06/2025 Acute pain of left shoulder (ICD-10 - M25.512) 02/05/2025 Back muscle spasm (ICD-10 - M62.830) med with food ; may make drowsy 02/05/2025 Acute thoracic back pain, unspecified back pain laterality (ICD-10 - M54.6) to start MDP in 2 days; no lifting/pushing/ pulling; ice and heat application prn; OTC patch prn; take med with food; scheduled OTC NSAID with food 02/01/2025 GERD (gastroesophageal reflux disease) (ICD-10 - K21.9) 10/23/2024 Lipid screening (ICD-10 - Z13.220) 11/29/2024 HBP (high blood pressure) (ICD-10 - I10) Recommend she take losartan in the evening and HCTZ in the mornings. Continue to monitor blood pressure twice daily and record readings. 11/06/2024 HBP (high blood pressure) (ICD-10 - I10) Limit salt and caffeine. Monitor blood pressure twice daily and record readings. 11/06/2024 MAIDA (obstructive sleep apnea) (ICD-10 - G47.33) 01/31/2025 HBP (high blood pressure) (ICD-10 - I10) 01/31/2025 Dyslipidemia (ICD-10 - E78.5) 01/31/2025 Carpal tunnel syndrome on both sides (ICD-10 - G56.03) Recommend bilateral wrist splints to wear at nighttime. Instructed on stretching exercises. Discussed options for referral if conservative measures fail. 05/06/2025 Gastroesophageal reflux disease without esophagitis (ICD-10 - K21.9) 10/15/2024 Lipid screening (ICD-10 - Z13.220) 10/15/2024 Diabetes mellitus screening (ICD-10 - Z13.1) 05/06/2025 HTN (hypertension) (ICD-10 - I10) 01/31/2025 Vitamin B 12 deficiency (ICD-10 - E53.8) 01/31/2025 Vitamin D deficiency (ICD-10 - E55.9) 10/15/2024 GERD (gastroesophageal reflux disease) (ICD-10 - K21.9) 10/15/2024 Thyroid disorder screen (ICD-10 - Z13.29) 10/15/2024 Other will have fasting labs done at [facility]; req sent; will vasquez results Plan Of Treatment Pending Test Test Name Order Date X ray : Foot, right 05/06/2025 X ray : Shoulder, left 05/06/2025 CP-CMP 03/18/2021 CP-TSH 03/18/2021 CP-LIPID PANEL 03/18/2021 CP-A1C (GLYCOHEMOGLOBIN) 03/18/2021 lipid profile 10/23/2024 H-TSH 08/05/2021 H-Lipid Panel 08/05/2021 H-CMP 08/05/2021 H-Glycohemoglobin A1C 08/05/2021 Insurance Providers Payer Name Payer Address Payer Phone Subscriber Number Group Number Insured Name Patient Relationship to Insured Coverage Start Date Coverage End Date [employer] [address] [place] [address] [id number] MICAELAMaurilioBEN Self - patient is the insured Medications Administered Medication Instructions Date of Administration Dosage Notes Dexamethasone 10/09/2019 1 mL Dexamethasone 01/07/2022 1 mL Dexamethasone 02/05/2025 1 mL Medical (General) History 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 History ICD Code depression anxiety recurrent tonsillitis onychomycoses hyperlipidemia dysrrhthmia with ablation of RVT Hiatal hernia by EGD Colonic diverticulosis MAIDA - Dr. Hamilton P Surgical History Surgery Date(Month/Year) ablation of RVT 1998 tonsillectomy 1989 Colonoscopy/Dr. Gruber/ polyps x 2 and sigmoid diverticulosis 2014 EGD/ Dr. Gruber/ sliding hiatal hernia and GERD 2014 bilateral tubal ligation 2006 Hospitalization History Reason Date(Month/Year) vaginal child march 1994 [facility] stay - Pharyngitits 01/26/17-01/27/17
== END 2025-05-06 23:59 | disposition home or self-care (01) ==
LOC: RAD 11:03
PROVIDERS: PCP Family Medicine; Visit Provider Nurse Practitioner Family
DX: S99.921A Unspecified injury of right foot, initial encounter (principal); M25.512 Pain in left shoulder; M20.11 Hallux valgus (acquired), right foot; M19.071 Primary osteoarthritis, right ankle and foot; X58.XXXA Exposure to other specified factors, initial encounter
CPT/HCPCS: 73030; 73630